=== PATIENT | female | born 1960 | race Caucasian/White ===

== ENCOUNTER 2016-08-31 12:28 | Emergency (ER) | payer BC ==
--- NOTE | 2016-08-31 12:37 | EDM.PDOC ---
ED HPI GENERAL MEDICAL PROBLEM - General Chief Complaint: ENT Problem Stated Complaint: SORE THROAT Time Seen by Provider: 08/31/16 12:30 Source of Information: Reports: Patient History Limitations: Reports: No Limitations - History of Present Illness INITIAL COMMENTS - FREE TEXT/NARRATIVE: 56 yo WF presents to ER complaining of sore throat x 2 days. Pt reports she was having difficulty sleeping due to pain last night prompting her to come to ER. Pt denies any fever/chills, denies any difficulty in breathing or swallowing. Duration: Day(s): (2) Quality: Reports: Ache Severity: Mild Improves with: Reports: None Worsens with: Reports: None Associated Symptoms: Reports: No Other Symptoms - Related Data Allergies Allergy/AdvReac Type Severity Reaction Status Date / Time doxycycline Allergy Rash Verified 09/17/15 10:22 Home Meds: Home Meds Cranberry 1,000 mg PO DAILY 02/02/15 [History] Desoximetasone [Topicort 0.25% Crm] 1 applic TOP BID PRN 02/02/15 [History] Insulin Glarg,Human.Rec.Analog [LantUS Solostar] 35 units SUBCUT DAILY 02/02/15 [History] Lactulose [Chronulac] 120 ml PO BEDTIME PRN 02/02/15 [History] Linaclotide [Linzess] 290 mcg PO ACBREAKFAST 02/02/15 [History] Lisinopril [Prinivil] 10 mg PO DAILY 02/02/15 [History] Metoclopramide [Reglan] 10 mg PO BID PRN 02/02/15 [History] Multivitamin with Minerals [Multivitamins with Minerals] 1 tab PO DAILY@1200 [History] Pregabalin [Lyrica] 200 mg PO BEDTIME 02/02/15 [History] Pregabalin [Lyrica] 400 mg PO ACBREAKFAST 02/02/15 [History] Solifenacin [Vesicare] 5 mg PO DAILY 02/02/15 [History] Terbinafine [LamISIL] 250 mg PO DAILY 02/02/15 [History] Vilazodone [Viibryd] 40 mg PO DAILY 02/02/15 [History] atorvaSTATin [Lipitor] 40 mg PO BEDTIME 02/02/15 [History] buPROPion [buPROPion XL] 450 mg PO DAILY 02/02/15 [History] metFORMIN [Glucophage] 1,000 mg PO BIDMEALS 02/02/15 [History] Acetaminophen/oxyCODONE [Percocet 325-5 MG] 1 - 2 tab PO Q4H PRN 09/04/15 [ History] Diclofenac Sodium [Voltaren] 75 mg PO BIDMEALS 09/04/15 [History] Docusate Sodium 100 mg PO BID 09/04/15 [History] Liraglutide [Victoza] 1.8 mg SUBCUT DAILY@1200 09/04/15 [History] Misoprostol 400 mcg PO BIDMEALS 09/04/15 [History] Polyethylene Glycol 3350 34 gm PO BEDTIME 09/04/15 [History] tiZANidine HCl [Tizanidine HCl] 2 mg PO TID 09/17/15 [History] Amoxicillin 500 mg PO TID #30 tab 08/31/16 [Rx] Cetirizine [ZyrTEC] 10 mg PO DAILY #30 tablet 08/31/16 [Rx] Past Medical History HEENT History: Reports: Impaired Vision Cardiovascular History: Reports: High Cholesterol, Hypertension Gastrointestinal History: Reports: Chronic Constipation, GERD, Irritable Bowel Syndrome Genitourinary History: Reports: UTI, Recurrent, Other (See Below) Other Genitourinary History: overactive bladder 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: Musculoskeletal History: Reports: Neck Pain, Chronic Neurological History: Reports: CVA Other Neuro History: mild stroke Psychiatric History: Reports: Depression Endocrine/Metabolic History: Reports: Diabetes, Type I, Obesity/BMI 30+ Dermatologic History: Reports: Other (See Below) Other Dermatologic History: open sore - Infectious Disease History Infectious Disease History: Reports: Chicken Pox - Past Surgical History Musculoskeletal Surgical History: Reports: Carpal Tunnel, Nerve Relocation Social & Family History - Family History HEENT: Reports: Glaucoma Cardiac: Reports: Bypass, Heart Failure Respiratory: Reports: Other (See Below) Other Respiratory Family Hisory: emphysema - Tobacco Use Smoking Status *Q: Never Smoker Second Hand Smoke Exposure: No - Recreational Drug Use Recreational Drug Use: No ED ROS ENT - Review of Systems Review Of Systems: See Below Constitutional: Reports: No Symptoms HEENT: Reports: Rhinitis, Throat Pain Respiratory: Reports: No Symptoms Cardiovascular: Reports: No Symptoms Endocrine: Reports: No Symptoms GI/Abdominal: Reports: No Symptoms : Reports: No Symptoms Musculoskeletal: Reports: No Symptoms Skin: Reports: No Symptoms Neurological: Reports: No Symptoms Psychiatric: Reports: No Symptoms Hematologic/Lymphatic: Reports: No Symptoms Immunologic: Reports: No Symptoms ED EXAM, ENT - Physical Exam Exam: See Below Exam Limited By: No Limitations General Appearance: Alert, WD/WN, No Apparent Distress Ears: Normal External Exam, Normal Canal, Hearing Grossly Normal, Normal TMs Nose: Normal Inspection, Normal Mucousa, No Blood Mouth/Throat: Pharyngeal Erythema, Throat Pain Head: Atraumatic, Normocephalic Neck: Supple, Non-Tender, Full Range of Motion, Lymphadenopathy (L), Lymphadenopathy (R) Respiratory/Chest: No Respiratory Distress, Lungs Clear, Normal Breath Sounds, No Accessory Muscle Use, Chest Non-Tender Cardiovascular: Normal Peripheral Pulses, Regular Rate, Rhythm, No Edema, No Gallop, No JVD, No Murmur, No Rub GI/Abdominal: Normal Bowel Sounds, Soft, Non-Tender, No Organomegaly, No Distention, No Abnormal Bruit, No Mass Back: Normal Inspection, Full Range of Motion Extremities: Normal Inspection, Normal Range of Motion, Non-Tender, No Pedal Edema, Normal Capillary Refill Neurological: Alert, Oriented, CN II-XII Intact, Normal Cognition, Normal Gait, Normal Reflexes, No Motor/Sensory Deficits Psychiatric: Normal Affect, Normal Mood Skin: Warm, Dry, Intact, Normal Color, No Rash Departure - Departure Time of Disposition: 12:39 Disposition: Home, Self-Care 01 Condition: good Clinical Impression: Sore throat - Discharge Information Prescriptions: Amoxicillin 500 mg PO TID #30 tab Cetirizine [ZyrTEC] 10 mg PO DAILY #30 tablet Instructions: Pharyngitis Referrals: Augusto Acharya MD [Primary Care Provider] - - Assessment/Plan Assessment:: 1. pharyngitis Plan: 1. discharge home 2. amoxil 500mg PO TID x 10 days 3. zyrtec 10mg PO QD 4. follow up in clinic in 2 days for recheck and further management
[2016-08-31] MEDS ORDERED: Amoxicillin 500 MG Cap ONE (12:50)
[2016-08-31 15:05] VITALS: BP 159/89
[2016-08-31] MEDS ORDERED: Amoxicillin 500 MG Cap PO SCH (15:15)
== END 2016-08-31 15:01 | disposition home or self-care (01) ==
LOC: KA.ED 12:28
DX: J02.9 Acute pharyngitis, unspecified (principal); E78.00 Pure hypercholesterolemia, unspecified; H54.7 Unspecified visual loss; I10 Essential (primary) hypertension; E10.9 Type 1 diabetes mellitus without complications; Z88.8 Allergy status to other drugs, medicaments and biological substances; Z79.899 Other long term (current) drug therapy; Z79.4 Long term (current) use of insulin
CPT/HCPCS: 99282; A9270

== ENCOUNTER 2017-12-20 10:35 | Emergency (ER) | payer MEDICARE, BC ==
[2017-12-20 11:51] VITALS: BP 132/66
[2017-12-20] MEDS ORDERED: Fluconazole 100 MG Tab PO ONE (12:26)
--- NOTE | 2017-12-20 12:27 | EDM.PDOC ---
ED HPI GENERAL MEDICAL PROBLEM - General Chief Complaint: General Stated Complaint: HIGH BLOOD PRESSURE? Time Seen by Provider: 12/20/17 11:15 Source of Information: Reports: Patient History Limitations: Reports: No Limitations - History of Present Illness INITIAL COMMENTS - FREE TEXT/NARRATIVE: Patient is a 57-year-old female who presents to the emergency department this morning with a complaint of high blood pressure. Patient states that she took the blood pressure this morning and noticed that it was high. Patient states that she just did one reading and decided to present to the emergency room. Patient does have a long history of hypertension and is currently on losartan, and diabetes which she is on insulin and oral medication. There is been no change in medication in last year. Patient is currently being treated for candidiasis with Diflucan weekly. Patient states that she has small amount of vaginal discharge, but denies dysuria, abdominal pain, chest pain, shortness of breath, headache, blurry vision, or dizziness. Onset: Today Duration: Hour(s): Improves with: Reports: None Worsens with: Reports: None Context: Denies: Activity, Exercise, Lifting, Sick Contact, Trauma Associated Symptoms: Reports: No Other Symptoms. Denies: Chest Pain, Cough, Fever/Chills, Nausea/Vomiting, Shortness of Breath, Syncope, Weakness - Related Data Allergies Allergy/AdvReac Type Severity Reaction Status Date / Time doxycycline Allergy Rash Verified 12/20/17 10:39 Home Meds: Home Meds Cranberry 1,000 mg PO DAILY 02/02/15 [History] Desoximetasone [Topicort 0.25% Crm] 1 applic TOP BID PRN 02/02/15 [History] Insulin Glarg,Human.Rec.Analog [LantUS Solostar] 35 units SUBCUT DAILY 02/02/15 [History] Lactulose [Chronulac] 120 ml PO BEDTIME PRN 02/02/15 [History] Linaclotide [Linzess] 290 mcg PO ACBREAKFAST 02/02/15 [History] Lisinopril [Prinivil] 10 mg PO DAILY 02/02/15 [History] Metoclopramide [Reglan] 10 mg PO BID PRN 02/02/15 [History] Multivitamin with Minerals [Multivitamins with Minerals] 1 tab PO DAILY@1200 [History] Pregabalin [Lyrica] 200 mg PO BEDTIME 02/02/15 [History] Pregabalin [Lyrica] 400 mg PO ACBREAKFAST 02/02/15 [History] Solifenacin [Vesicare] 5 mg PO DAILY 02/02/15 [History] Terbinafine [LamISIL] 250 mg PO DAILY 02/02/15 [History] Vilazodone [Viibryd] 40 mg PO DAILY 02/02/15 [History] atorvaSTATin [Lipitor] 40 mg PO BEDTIME 02/02/15 [History] buPROPion [buPROPion XL] 450 mg PO DAILY 02/02/15 [History] metFORMIN [Glucophage] 1,000 mg PO BIDMEALS 02/02/15 [History] Acetaminophen/oxyCODONE [Percocet 325-5 MG] 1 - 2 tab PO Q4H PRN 09/04/15 [ History] Diclofenac Sodium [Voltaren] 75 mg PO BIDMEALS 09/04/15 [History] Docusate Sodium 100 mg PO BID 09/04/15 [History] Liraglutide [Victoza] 1.8 mg SUBCUT DAILY@1200 09/04/15 [History] Polyethylene Glycol 3350 34 gm PO BEDTIME 09/04/15 [History] miSOPROStol [Misoprostol] 400 mcg PO BIDMEALS 09/04/15 [History] tiZANidine HCl [Tizanidine HCl] 2 mg PO TID 09/17/15 [History] Amoxicillin 500 mg PO TID #30 tab 08/31/16 [Rx] Cetirizine [ZyrTEC] 10 mg PO DAILY #30 tablet 08/31/16 [Rx] Past Medical History HEENT History: Reports: Impaired Vision Cardiovascular History: Reports: High Cholesterol, Hypertension Gastrointestinal History: Reports: Chronic Constipation, GERD, Irritable Bowel Syndrome Genitourinary History: Reports: UTI, Recurrent, Other (See Below) Other Genitourinary History: overactive bladder 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: Musculoskeletal History: Reports: Neck Pain, Chronic Neurological History: Reports: CVA Other Neuro History: mild stroke Psychiatric History: Reports: Depression Endocrine/Metabolic History: Reports: Diabetes, Type I, Obesity/BMI 30+ Dermatologic History: Reports: Other (See Below) Other Dermatologic History: open sore - Infectious Disease History Infectious Disease History: Reports: Chicken Pox - Past Surgical History Respiratory Surgical History: Reports: None Musculoskeletal Surgical History: Reports: Carpal Tunnel, Nerve Relocation Social & Family History - Family History HEENT: Reports: Glaucoma Cardiac: Reports: Bypass, Heart Failure Respiratory: Reports: Other (See Below) Other Respiratory Family Hisory: emphysema - Tobacco Use Smoking Status *Q: Never Smoker - Caffeine Use Caffeine Use: Reports: Coffee - Recreational Drug Use Recreational Drug Use: No ED ROS GENERAL - Review of Systems Review Of Systems: ROS reveals no pertinent complaints other than HPI. Constitutional: Reports: No Symptoms HEENT: Reports: No Symptoms Respiratory: Reports: No Symptoms Cardiovascular: Reports: No Symptoms Endocrine: Reports: No Symptoms GI/Abdominal: Reports: No Symptoms : Reports: No Symptoms Musculoskeletal: Reports: No Symptoms Skin: Reports: No Symptoms Neurological: Reports: No Symptoms Psychiatric: Reports: No Symptoms Hematologic/Lymphatic: Reports: No Symptoms Immunologic: Reports: No Symptoms ED EXAM, GENERAL - Physical Exam Exam: See Below Exam Limited By: No Limitations General Appearance: Alert, WD/WN, No Apparent Distress Eye Exam: Bilateral Eye: Normal Inspection Throat/Mouth: Normal Inspection, Normal Oropharynx, No Airway Compromise Head: Atraumatic, Normocephalic Neck: Normal Inspection, Supple Respiratory/Chest: No Respiratory Distress, Lungs Clear, Normal Breath Sounds, No Accessory Muscle Use, Chest Non-Tender Cardiovascular: Normal Peripheral Pulses, Regular Rate, Rhythm, No Murmur GI/Abdominal: Normal Bowel Sounds, Soft, Non-Tender Back Exam: Normal Inspection. No: CVA Tenderness (L), CVA Tenderness (R) Extremities: Normal Inspection, No Pedal Edema Neurological: Alert, Oriented, CN II-XII Intact, Normal Cognition, No Motor/ Sensory Deficits Psychiatric: Normal Affect, Normal Mood Skin Exam: Warm, Dry, Intact, Normal Color, No Rash EKG INTERPRETATION EKG Date: 12/20/17 Time: 11:30 Rhythm: NSR Rate (Beats/Min): 88 [place]: Normal P-Wave: Present QRS: Normal ST-T: Normal QT: Prolonged Comparison: No Change Course - Vital Signs Last Recorded V/S: Last Vital Signs Temp 97.5 F 12/20/17 10:40 Pulse 83 12/20/17 11:50 Resp 14 12/20/17 11:50 BP 132/66 12/20/17 11:50 Pulse Ox 99 09/01/18 11:50 - Re-Assessments/Exams Free Text/Narrative Re-Assessment/Exam: 12/20/17 12:31 Patient afebrile, nontoxic appearing, vital signs stable, denies chest pain or shortness of breath. EKG was performed and compared to EKG on 07/19/2015 with no noticeable changes. While in emergency department blood pressure decreased to 130s over 80s without intervention. [facility] notes received and reviewed, which showed positive for candidiasis, but negative for UTI. Patient was on Diflucan weekly, but will add three-day dose for coverage. Discussed with patient how to appropriately check blood pressure. Patient will follow-up at clinic next week. Departure - Departure Time of Disposition: 12:34 Disposition: Home, Self-Care 01 Condition: Good Clinical Impression: Hypertension screening, Vaginal candidiasis Hypertension Qualifiers: Hypertension type: unspecified Qualified Code(s): I10 - Essential (primary) hypertension - Discharge Information Instructions: How to Take Your Blood Pressure, Vaginal Yeast Infection, Adult, Hypertension, [id number] Referrals: Augusto Acharya MD [Primary Care Provider] - Additional Instructions: Follow-up at [facility] in 2-3 days. Return to the emergency room sooner if symptoms continue or worsen. Take medication as directed - Assessment/Plan Assessment:: Hypertension, vaginal candidiasis Plan: Follow-up at [facility] next week
== END 2017-12-20 12:46 | disposition home or self-care (01) ==
LOC: KA.ED 10:35
DX: I10 Essential (primary) hypertension (principal); B37.3 Candidiasis of vulva and vagina; E78.00 Pure hypercholesterolemia, unspecified; E10.9 Type 1 diabetes mellitus without complications; F32.9 Major depressive disorder, single episode, unspecified; Z88.8 Allergy status to other drugs, medicaments and biological substances; Z79.899 Other long term (current) drug therapy
CPT/HCPCS: 99283; A9270-GY

== ENCOUNTER 2018-07-18 06:36 | Emergency (ER) | payer MEDICARE, BC ==
[2018-07-18] MEDS: diphenhydrAMINE 50 MG/ML SDV IVPUSH ONE (07:08)
[2018-07-18 07:32] VITALS: BP 141/89
[2018-07-18] MEDS ORDERED: Sodium Chloride 0.9% 1,000 ML IV SCH (07:45)
--- NOTE | 2018-07-18 07:46 | EDM.PDOC ---
ED HPI GENERAL MEDICAL PROBLEM - General Chief Complaint: General Stated Complaint: anxiety,itching Time Seen by Provider: 07/18/18 07:15 Source of Information: Reports: Patient History Limitations: Reports: No Limitations - History of Present Illness INITIAL COMMENTS - FREE TEXT/NARRATIVE: 58-year-old female presents to the emergency room worse complaints of severe pruritus of both hands. 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 She is not taking any antihistamine in order to try to resolve this. She denies any rash or redness to the hands. She denies any swelling of the hands. She denies any rash anywhere else on her body or itching anywhere else. She has not had any change in her medications other than that she is been on diclofenac for a yeast infection. She reports that this is improved. She is otherwise in her normal state of health. She does have a history of anxiety and took some Xanax which has not helped her itching. She is diabetic. She does take Lyrica for neuropathy. She denies any fever or chills or recent illnesses. She is not having any breathing problems or shortness of breath. She has no chest pain. Her has recently had surgery on his back and therefore was unable to drive her in. She came through EMS and an IV was placed in her left arm. Her vital signs and blood pressure have been stable. I instructed the nurse to give her 50 of Benadryl IV upon her arrival. She states that her symptoms have improved 100%. Onset Date: 07/17/18 Duration: Getting Worse Location: Reports: Other (hands bilateral) Quality: Reports: Burning Severity: Moderate Improves with: Reports: None Worsens with: Reports: None Context: Reports: Activity Associated Symptoms: Reports: No Other Symptoms - Related Data Allergies Allergy/AdvReac Type Severity Reaction Status Date / Time doxycycline Allergy Rash Verified 07/18/18 06:56 Home Meds: Home Meds Cranberry 500 mg PO DAILY@1200 02/02/15 [History] Desoximetasone [Topicort 0.25% Crm] 1 applic TOP BID PRN 02/02/15 [History] Metoclopramide [Reglan] 10 mg PO BID PRN 02/02/15 [History] Multivitamin with Minerals [Multivitamins with Minerals] 1 tab PO DAILY@1200 [History] Pregabalin [Lyrica] 200 mg PO BEDTIME 02/02/15 [History] Pregabalin [Lyrica] 400 mg PO ACBREAKFAST 02/02/15 [History] Vilazodone [Viibryd] 40 mg PO DAILY 02/02/15 [History] atorvaSTATin [Lipitor] 40 mg PO BEDTIME 02/02/15 [History] buPROPion [buPROPion XL] 450 mg PO DAILY 02/02/15 [History] metFORMIN [Glucophage] 1,000 mg PO BIDMEALS 02/02/15 [History] Diclofenac Sodium [Voltaren] 75 mg PO BIDMEALS 09/04/15 [History] Liraglutide [Victoza] 0.6 mg SUBCUT DAILY@1200 09/04/15 [History] Polyethylene Glycol 3350 34 gm PO BEDTIME 09/04/15 [History] miSOPROStol [Misoprostol] 400 mcg PO BIDMEALS 09/04/15 [History] Ascorbic Acid [Vitamin C] 1,000 mg PO DAILY@1200 12/20/17 [History] Aspirin [Ecotrin] 81 mg PO BEDTIME 12/20/17 [History] Calcium Carbonate/Vitamin D3 [Calcium 1,000 + D3 [place]] 1 tab PO DAILY@1200 05/08 [History] Cinnamon Bark [Cinnamon] 1,000 mg PO DAILY@1200 12/20/17 [History] Cyanocobalamin/FA/Pyridoxine [B Complex-Folic Acid] 1 tab PO DAILY@1200 [History] Dextrose [Glucose] 1 bottle PO ASDIRECTED PRN 12/20/17 [History] Estrogens, Conjugated [Premarin] 0.625 mg PO DAILY 12/20/17 [History] Fluconazole [Diflucan] 150 mg PO WEEKLY 12/20/17 [History] Insulin Glarg,Human.Rec.Analog [Lantus] 30 unit SQ BEDTIME 12/20/17 [History] Lactobacillus Acidophilus [Acidophilus Lactobacilli] 2 cap PO DAILY@1200 [History] Lactulose [Generlac] 2 tbsp PO BEDTIME 12/20/17 [History] Losartan [Cozaar] 50 mg PO DAILY 12/20/17 [History] Magnesium Oxide 400 mg PO BEDTIME 12/20/17 [History] Magnesium Oxide 800 mg PO DAILY 12/20/17 [History] Meclizine [Antivert] 25 mg PO BID PRN 12/20/17 [History] Mirabegron [Myrbetriq] 50 mg PO DAILY 12/20/17 [History] Ranitidine [Zantac] 150 mg PO DAILY 12/20/17 [History] Cetirizine [ZyrTEC] 10 mg PO DAILY PRN 01/30/18 [History] Past Medical History HEENT History: Reports: Impaired Vision Cardiovascular History: Reports: High Cholesterol, Hypertension Gastrointestinal History: Reports: Chronic Constipation, GERD, Irritable Bowel Syndrome Genitourinary History: Reports: UTI, Recurrent, Other (See Below) Other Genitourinary History: overactive bladder 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: Musculoskeletal History: Reports: Neck Pain, Chronic Neurological History: Reports: CVA Other Neuro History: mild stroke Psychiatric History: Reports: Depression Endocrine/Metabolic History: Reports: Diabetes, Type I, Obesity/BMI 30+ Dermatologic History: Reports: Other (See Below) Other Dermatologic History: open sore - Infectious Disease History Infectious Disease History: Reports: Chicken Pox - Past Surgical History Respiratory Surgical History: Reports: None Musculoskeletal Surgical History: Reports: Carpal Tunnel, Nerve Relocation Social & Family History - Family History Family Medical History: Noncontributory HEENT: Reports: Glaucoma Cardiac: Reports: Bypass, Heart Failure Respiratory: Reports: Other (See Below) Other Respiratory Family Hisory: emphysema - Caffeine Use Caffeine Use: Reports: Coffee ED ROS GENERAL - Review of Systems Review Of Systems: ROS reveals no pertinent complaints other than HPI. ED EXAM, GENERAL - Physical Exam Exam: See Below Exam Limited By: No Limitations General Appearance: Alert, WD/WN, No Apparent Distress, Anxious Eye Exam: Bilateral Eye: EOMI Ears: Hearing Grossly Normal Nose: Normal Inspection, Normal Mucosa, No Blood Throat/Mouth: Normal Inspection, Normal Lips, Normal Oropharynx, Normal Voice, No Airway Compromise Head: Atraumatic, Normocephalic Neck: Normal Inspection, Supple. No: Lymphadenopathy (L), Lymphadenopathy (R) Respiratory/Chest: No Respiratory Distress, Lungs Clear Cardiovascular: Normal Peripheral Pulses, Regular Rate, Rhythm GI/Abdominal: Normal Bowel Sounds, Soft Back Exam: Normal Inspection, Full Range of Motion Extremities: Normal Inspection, Normal Range of Motion, Non-Tender, No Pedal Edema, Normal Capillary Refill, Other (Partial amputations of the great, second and third toe left foot) Neurological: Alert, Oriented, Normal Cognition, No Motor/Sensory Deficits Psychiatric: Anxious Skin Exam: Warm, Dry, Intact, Normal Color, No Rash Lymphatic: No Adenopathy Course - Vital Signs Last Recorded V/S: Last Vital Signs Temp 97.6 F 07/18/18 06:40 Pulse 90 07/18/18 06:40 Resp 18 07/18/18 06:40 BP 141/89 H 07/18/18 06:40 Pulse Ox 100 07/18/18 06:40 - Orders/Labs/Meds Orders: Active Orders 24 hr Category Date Time Status Sodium Chloride 0.9% [Normal Saline] 1,000 ml Med 07/18/18 07:45 Active IV ASDIRECTED Medication Orders Sodium Chloride (Normal Saline) 1,000 mls @ 100 mls/hr IV ASDIRECTED KIMMIE Labs: Laboratory Tests 07/18/18 Range/Units 06:43 POC Glucose 239 H (74-106) mg/dl Meds: Medications Generic Name Dose Route Start Last Admin Trade Name Freq PRN Reason Stop Dose Admin Sodium Chloride 1,000 mls @ 100 mls/hr 07/18/18 07:45 Normal Saline IV ASDIRECTED KIMMIE Discontinued Medications Generic Name Dose Route Start Last Admin Trade Name Freq PRN Reason Stop Dose Admin Diphenhydramine HCl 50 mg 07/18/18 06:59 07/18/18 07:08 Benadryl IVPUSH 07/18/18 07:00 50 mg ONETIME ONE Administration - Re-Assessments/Exams Free Text/Narrative Re-Assessment/Exam: 07/18/18 07:46 Patient was given 50 of Benadryl IV, she feels 100% relieved of her symptoms Departure - Departure Time of Disposition: 07:47 Disposition: Home, Self-Care 01 Condition: Good Clinical Impression: Pruritus - Discharge Information Instructions: Pruritus Forms: ED Department Discharge Additional Instructions: 1. Benadryl 50 mg every 8 hours when necessary for itching. 2. Follow-up with your primary care next week if symptoms persist. - My Orders Last 24 Hours: My Active Orders 07/18/18 07:45 Sodium Chloride 0.9% [Normal Saline] 1,000 ml IV ASDIRECTED - Assessment/Plan Last 24 Hours: My Active Orders 07/18/18 07:45 Sodium Chloride 0.9% [Normal Saline] 1,000 ml IV ASDIRECTED Assessment:: Pruritus of the hands Plan: 1. Benadryl 50 mg every 8 hours when necessary as needed for itching. 2. Follow-up with your primary care next week if symptoms persist 3. Continue with her home medications as prescribed
== END 2018-07-18 08:10 | disposition home or self-care (01) ==
LOC: KA.ED 06:36
DX: L50.9 Urticaria, unspecified (principal); E78.00 Pure hypercholesterolemia, unspecified; I10 Essential (primary) hypertension; E10.9 Type 1 diabetes mellitus without complications; Z88.8 Allergy status to other drugs, medicaments and biological substances; Z79.899 Other long term (current) drug therapy
CPT/HCPCS: 82962; 96374; 99284; 99284-25; J1200

== ENCOUNTER 2018-08-10 22:40 | Emergency (ER) | payer MEDICARE, BC ==
[2018-08-10] MEDS ORDERED: Diazepam 5 MG Tab PO ONE (23:24)
[2018-08-10] MEDS ORDERED: Ketorolac 60 MG/2 ML SDV IM ONE (23:24)
--- NOTE | 2018-08-10 23:24 | EDM.PDOC ---
ED HPI GENERAL MEDICAL PROBLEM - General Chief Complaint: Lower Extremity Injury/Pain Stated Complaint: post op foot pain Time Seen by Provider: 08/10/18 23:10 Source of Information: Reports: Patient History Limitations: Reports: No Limitations - History of Present Illness INITIAL COMMENTS - FREE TEXT/NARRATIVE: 58 YO WF presents to ER with bilateral foot neuropathic pain. Pt reports she had foot surgery for bunion removal 5 days ago and was doing fine until tonight. Pt reports she is having trouble sleeping due to the discomfort. Pt denies any swelling, redness or discharge from her post surgical site. Pt denies any fever/chills, no nausea/vomiting, no lower extremity swelling. Pt requesting something to help her sleep due to discomfort. Duration: Chronic Location: Reports: Lower Extremity, Left, Lower Extremity, Right Quality: Reports: Dull, Throbbing Severity: Moderate Improves with: Reports: None Worsens with: Reports: None Associated Symptoms: Reports: No Other Symptoms - Related Data Allergies Allergy/AdvReac Type Severity Reaction Status Date / Time doxycycline Allergy Rash Verified 08/10/18 23:06 Home Meds: Home Meds Desoximetasone [Topicort 0.25% Crm] 1 applic TOP BID PRN 02/02/15 [History] Metoclopramide [Reglan] 10 mg PO BID PRN 02/02/15 [History] Multivitamin with Minerals [Multivitamins with Minerals] 1 tab PO DAILY@1200 [History] Pregabalin [Lyrica] 200 mg PO BEDTIME 02/02/15 [History] Pregabalin [Lyrica] 400 mg PO ACBREAKFAST 02/02/15 [History] Vilazodone [Viibryd] 40 mg PO DAILY 02/02/15 [History] atorvaSTATin [Lipitor] 40 mg PO BEDTIME 02/02/15 [History] buPROPion [buPROPion XL] 450 mg PO DAILY 02/02/15 [History] metFORMIN [Glucophage] 1,000 mg PO BIDMEALS 02/02/15 [History] Diclofenac Sodium [Voltaren] 75 mg PO BIDMEALS 09/04/15 [History] Liraglutide [Victoza] 0.6 mg SUBCUT DAILY@1200 09/04/15 [History] Polyethylene Glycol 3350 34 gm PO BID 09/04/15 [History] miSOPROStol [Misoprostol] 400 mcg PO BIDMEALS 09/04/15 [History] Aspirin [Ecotrin] 81 mg PO BEDTIME 12/20/17 [History] Calcium Carbonate/Vitamin D3 [Calcium 1,000 + D3 Caplet] 1 tab PO DAILY@1200 05/08 [History] Cyanocobalamin/FA/Pyridoxine [B Complex-Folic Acid] 1 tab PO DAILY@1200 [History] Dextrose [Glucose] 1 bottle PO ASDIRECTED PRN 12/20/17 [History] Estrogens, Conjugated [Premarin] 0.625 mg PO DAILY 12/20/17 [History] Fluconazole [Diflucan] 150 mg PO DAILY 12/20/17 [History] Insulin Glarg,Human.Rec.Analog [Lantus] 30 unit SQ BEDTIME 12/20/17 [History] Lactobacillus Acidophilus [Acidophilus Lactobacilli] 2 cap PO BID 12/20/17 [ History] Lactulose [Generlac] 120 ml PO BEDTIME 12/20/17 [History] Magnesium Oxide 400 mg PO BEDTIME 12/20/17 [History] Magnesium Oxide 800 mg PO DAILY 12/20/17 [History] Meclizine [Antivert] 25 mg PO BID PRN 12/20/17 [History] Mirabegron [Myrbetriq] 50 mg PO DAILY 12/20/17 [History] ALPRAZolam [Alprazolam] 0.5 mg PO BID PRN 07/18/18 [History] Baclofen 10 mg PO TID PRN 07/18/18 [History] Cetirizine HCl/Pseudoephedrine [ZyrTEC-D] 1 tab PO BID 07/18/18 [History] Insulin Glarg,Human.Rec.Analog [Lantus] 50 units SQ DAILY 07/18/18 [History] Losartan/Hydrochlorothiazide [Hyzaar 100-12.5 Tablet] 1 tab PO DAILY 07/18/18 [ History] Metoclopramide HCl [Reglan] 10 mg PO BID PRN 07/18/18 [History] Non-Formulary Medication [NF Drug] 1 applic TOP BID 07/18/18 [History] hydroCHLOROthiazide [Hydrochlorothiazide] 12.5 mg PO DAILY 07/18/18 [History] Hydrocodone/Acetaminophen [Hydrocodon-Acetaminophen 5-325] 1 each PO Q6H PRN [History] hydrOXYzine pamoate [Hydroxyzine Pamoate] 25 mg PO Q6H PRN 08/10/18 [History] Past Medical History HEENT History: Reports: Impaired Vision Cardiovascular History: Reports: High Cholesterol, Hypertension Gastrointestinal History: Reports: Chronic Constipation, GERD, Irritable Bowel Syndrome Genitourinary History: Reports: UTI, Recurrent, Other (See Below) Other Genitourinary History: overactive bladder 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: Musculoskeletal History: Reports: Neck Pain, Chronic Neurological History: Reports: CVA Other Neuro History: mild stroke Psychiatric History: Reports: Depression Endocrine/Metabolic History: Reports: Diabetes, Type I, Obesity/BMI 30+ Dermatologic History: Reports: Other (See Below) Other Dermatologic History: open sore - Infectious Disease History Infectious Disease History: Reports: Chicken Pox - Past Surgical History Respiratory Surgical History: Reports: None Musculoskeletal Surgical History: Reports: Carpal Tunnel, Nerve Relocation Social & Family History - Family History Family Medical History: Noncontributory HEENT: Reports: Glaucoma Cardiac: Reports: Bypass, Heart Failure Respiratory: Reports: Other (See Below) Other Respiratory Family Hisory: emphysema - Caffeine Use Caffeine Use: Reports: Coffee Review of Systems - Review of Systems Review Of Systems: See Below Constitutional: Reports: No Symptoms Eyes: Reports: No Symptoms Ears: Reports: No Symptoms Nose: Reports: No Symptoms Mouth/Throat: Reports: No Symptoms Respiratory: Reports: No Symptoms Cardiovascular: Reports: No Symptoms GI/Abdominal: Reports: No Symptoms Genitourinary: Reports: No Symptoms Musculoskeletal: Reports: No Symptoms Skin: Reports: No Symptoms Neurological: Reports: No Symptoms Psychiatric: Reports: No Symptoms ED EXAM, GENERAL - Physical Exam Exam: See Below Exam Limited By: No Limitations General Appearance: Alert, WD/WN, No Apparent Distress Head: Atraumatic, Normocephalic Neck: Normal Inspection, Supple, Non-Tender, Full Range of Motion Respiratory/Chest: No Respiratory Distress, Lungs Clear, Normal Breath Sounds, No Accessory Muscle Use, Chest Non-Tender Cardiovascular: Normal Peripheral Pulses, Regular Rate, Rhythm, No Edema, No Gallop, No JVD, No Murmur, No Rub GI/Abdominal: Normal Bowel Sounds, Soft, Non-Tender, No Organomegaly, No Distention, No Abnormal Bruit, No Mass Back Exam: Normal Inspection, Full Range of Motion, NT Extremities: Normal Inspection, Normal Range of Motion, No Pedal Edema, Normal Capillary Refill. No: Increased Warmth, Redness Neurological: Alert, Oriented, CN II-XII Intact, Normal Cognition, Normal Gait, Normal Reflexes, No Motor/Sensory Deficits Psychiatric: Normal Affect, Normal Mood Skin Exam: Warm, Dry, Intact, Normal Color, No Rash Lymphatic: No Adenopathy Departure - Departure Time of Disposition: 23:36 Disposition: Home, Self-Care 01 Condition: Good Clinical Impression: Neuropathy - Discharge Information Instructions: Peripheral Neuropathy, Neuropathic Pain Additional Instructions: 1. discharge home 2. follow up with Dr Coley as scheduled this week 3. return to ER for worsening symptoms 4. continue home medications as directed by PCP - Assessment/Plan Assessment:: 1. bilateral foot neuropathy Plan: 1. discharge home 2. follow up with Dr Coley as scheduled this week 3. return to ER for worsening symptoms 4. continue home medications as directed by PCP
[2018-08-11 03:44] VITALS: BP 119/71
== END 2018-08-11 00:05 | disposition home or self-care (01) ==
LOC: KA.ED 22:40
DX: G62.9 Polyneuropathy, unspecified (principal); I10 Essential (primary) hypertension; E78.00 Pure hypercholesterolemia, unspecified; K21.9 Gastro-esophageal reflux disease without esophagitis; E10.9 Type 1 diabetes mellitus without complications; Z88.1 Allergy status to other antibiotic agents; Z79.82 Long term (current) use of aspirin; Z86.73 Personal history of transient ischemic attack (TIA), and cerebral infarction without residual deficits; Z79.899 Other long term (current) drug therapy
CPT/HCPCS: 96372; 99282; A9270-GY; J1885

== ENCOUNTER 2019-03-03 08:29 | Emergency (ER) | payer MEDICARE, BC ==
[2019-03-03 08:39] VITALS: BP 166/87; PULSE 98
[2019-03-03] MEDS ORDERED: Sodium Chloride 0.9% 10 ML Syringe FLUSH PRN (08:46)
[2019-03-03] MEDS ORDERED: Sodium Chloride 0.9% 1,000 ML IV ONE (08:46)
[2019-03-03 09:28] LABS: ANION GAP 14.9 mmol/L (5-15); CHLORIDE,CL 106 mmol/L (98-115); SODIUM,NA 144 mmol/L (136-145)
--- NOTE | 2019-03-03 09:28 | EDM.PDOC ---
ED HPI GENERAL MEDICAL PROBLEM - General Chief Complaint: General Stated Complaint: FOOT TINGLING Time Seen by Provider: 03/03/19 09:00 Source of Information: Reports: Patient History Limitations: Reports: No Limitations - History of Present Illness INITIAL COMMENTS - FREE TEXT/NARRATIVE: 59 YO WF presents to ER with complaints of chronic but worsening lower extremity neuropathy. 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 Since that time pt reports increased neuropathic pain to her left foot. Pt denies any fever/chills, no redness, drainage or warmth to her left foot. Pt reports she was seen here 2018 for similar pain and was given Toradol/Valium which improved her symptoms significantly. Onset Date: 03/01/19 Duration: Chronic, Getting Worse Location: Reports: Lower Extremity, Left, Lower Extremity, Right Quality: Reports: Same as Previous Episode Severity: Moderate Improves with: Reports: None Worsens with: Reports: None Associated Symptoms: Reports: No Other Symptoms. Denies: Confusion, Headaches, Seizure, Weakness Bilateral Feet Pain Score (Numeric/FACES): 10 Bilateral Hand Pain Score (Numeric/FACES): 10 - Related Data Allergies Allergy/AdvReac Type Severity Reaction Status Date / Time doxycycline Allergy Rash Verified 03/03/19 08:34 Home Meds: Home Meds Desoximetasone [Topicort 0.25% Crm] 1 applic TOP BID PRN 02/02/15 [History] Metoclopramide [Reglan] 10 mg PO BID PRN 02/02/15 [History] Multivitamin with Minerals [Multivitamins with Minerals] 1 tab PO DAILY@1200 [History] Pregabalin [Lyrica] 200 mg PO BEDTIME 02/02/15 [History] Pregabalin [Lyrica] 400 mg PO ACBREAKFAST 02/02/15 [History] Vilazodone [Viibryd] 40 mg PO DAILY@1200 02/02/15 [History] atorvaSTATin [Lipitor] 40 mg PO BEDTIME 02/02/15 [History] buPROPion [buPROPion XL] 450 mg PO DAILY 02/02/15 [History] metFORMIN [Glucophage] 1,000 mg PO BIDMEALS@12,18 02/02/15 [History] Diclofenac Sodium [Voltaren] 75 mg PO BIDMEALS 09/04/15 [History] Liraglutide [Victoza] 0.6 mg SUBCUT DAILY@1200 09/04/15 [History] Polyethylene Glycol 3350 34 gm PO BID 09/04/15 [History] miSOPROStol [Misoprostol] 400 mcg PO BIDMEALS 09/04/15 [History] Aspirin [Ecotrin EC] 81 mg PO BEDTIME 12/20/17 [History] Calcium Carbonate/Vitamin D3 [Calcium 1,000 + D3 Caplet] 1 tab PO DAILY@1200 05/08 [History] Cyanocobalamin/FA/Pyridoxine [B Complex-Folic Acid] 1 tab PO DAILY@1200 [History] Dextrose [Glucose] 1 bottle PO ASDIRECTED PRN 12/20/17 [History] Insulin Glarg,Human.Rec.Analog [Lantus] 20 unit SQ BEDTIME 12/20/17 [History] Lactobacillus Acidophilus [Acidophilus Lactobacilli] 2 cap PO BID 12/20/17 [ History] Lactulose [Generlac] 120 ml PO BEDTIME 12/20/17 [History] Magnesium Oxide 400 mg PO BEDTIME 12/20/17 [History] Magnesium Oxide 800 mg PO DAILY 12/20/17 [History] Mirabegron [Myrbetriq] 50 mg PO DAILY 12/20/17 [History] Baclofen 10 mg PO TID PRN 07/18/18 [History] Cetirizine HCl/Pseudoephedrine [ZyrTEC-D] 1 tab PO BID PRN 07/18/18 [History] Losartan/Hydrochlorothiazide [Hyzaar 100-12.5 Tablet] 1 tab PO DAILY 07/18/18 [ History] Non-Formulary Medication [NF Drug] 1 applic TOP BID PRN 07/18/18 [History] hydrOXYzine pamoate [Hydroxyzine Pamoate] 25 mg PO Q6H PRN 08/10/18 [History] Capsaicin [Zostrix] 1 applic TOP QID PRN 03/03/19 [History] Insulin Aspart [NovoLOG] 5 units SQ TIDMEALS PRN 03/03/19 [History] Lactulose [Generlac] 120 ml PO BEDTIME PRN 03/03/19 [History] Raloxifene [Evista] 60 mg PO DAILY 03/03/19 [History] Past Medical History HEENT History: Reports: Impaired Vision Cardiovascular History: Reports: High Cholesterol, Hypertension Gastrointestinal History: Reports: Chronic Constipation, GERD, Irritable Bowel Syndrome Genitourinary History: Reports: UTI, Recurrent, Other (See Below) Other Genitourinary History: overactive bladder 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: Musculoskeletal History: Reports: Neck Pain, Chronic Neurological History: Reports: CVA Other Neuro History: mild stroke Psychiatric History: Reports: Anxiety, Depression Endocrine/Metabolic History: Reports: Diabetes, Type I, Obesity/BMI 30+ Dermatologic History: Reports: Other (See Below) Other Dermatologic History: open sore to left foot - Infectious Disease History Infectious Disease History: Reports: Chicken Pox - Past Surgical History Cardiovascular Surgical History: Reports: None Respiratory Surgical History: Reports: None GI Surgical History: Reports: Cholecystectomy, Colonoscopy, EGD Female Surgical History: Reports: None Neurological Surgical History: Reports: C-Spine Musculoskeletal Surgical History: Reports: Carpal Tunnel, Nerve Relocation, Other (See Below) Other Musculoskeletal Surgeries/Procedures:: OR on 08/06/18 to complete amputation of second toe on left foot. Also had right bunion removed. Social & Family History - Family History Family Medical History: Noncontributory HEENT: Reports: Glaucoma Cardiac: Reports: Bypass, Heart Failure Respiratory: Reports: Other (See Below) Other Respiratory Family Hisory: emphysema - Caffeine Use Caffeine Use: Reports: Coffee ED ROS GENERAL - Review of Systems Review Of Systems: See Below Constitutional: Reports: No Symptoms HEENT: Reports: No Symptoms Respiratory: Reports: No Symptoms Cardiovascular: Reports: No Symptoms Endocrine: Reports: No Symptoms GI/Abdominal: Reports: No Symptoms : Reports: No Symptoms Musculoskeletal: Reports: Foot Pain Skin: Reports: No Symptoms Neurological: Reports: Numbness, Paresthesia, Pre-Existing Deficit, Tingling. Denies: Confusion, Dizziness, Headache, Seizure, Trouble Speaking, Difficulty Walking, Weakness, Change in Speech, Gait Disturbance Psychiatric: Reports: No Symptoms Hematologic/Lymphatic: Reports: No Symptoms Immunologic: Reports: No Symptoms ED EXAM, GENERAL - Physical Exam Exam: See Below Exam Limited By: No Limitations General Appearance: Alert, WD/WN, No Apparent Distress Eye Exam: Bilateral Eye: EOMI, PERRL Throat/Mouth: Normal Inspection, Normal Lips, Normal Teeth, Normal Gums, Normal Oropharynx, Normal Voice, No Airway Compromise Head: Atraumatic, Normocephalic Neck: Normal Inspection, Supple, Non-Tender, Full Range of Motion Respiratory/Chest: No Respiratory Distress, Lungs Clear, Normal Breath Sounds, No Accessory Muscle Use, Chest Non-Tender Cardiovascular: Normal Peripheral Pulses, Regular Rate, Rhythm, No Edema, No Gallop, No JVD, No Murmur, No Rub GI/Abdominal: Normal Bowel Sounds, Soft, Non-Tender, No Organomegaly, No Distention, No Abnormal Bruit, No Mass Back Exam: Normal Inspection, Full Range of Motion, NT Extremities: Normal Inspection, Normal Range of Motion, No Pedal Edema, Normal Capillary Refill, Leg Pain. No: Limited Range of Motion, Increased Warmth, Redness Neurological: Alert, Oriented, CN II-XII Intact, Normal Cognition, Normal Gait, Normal Reflexes, No Motor/Sensory Deficits Psychiatric: Normal Affect, Normal Mood, Anxious Skin Exam: Warm, Dry, Intact, Normal Color, No Rash Lymphatic: No Adenopathy Course - Vital Signs Last Recorded V/S: Last Vital Signs Temp 36.5 C 03/03/19 08:35 Pulse 98 03/03/19 08:35 Resp 16 03/03/19 08:35 BP 166/87 H 03/03/19 08:35 Pulse Ox 92 L 03/03/19 08:35 - Orders/Labs/Meds Orders: Active Orders 24 hr Category Date Time Status Peripheral IV Care [RC] . DIRECTED Care 03/03/19 08:46 Active URINALYSIS W/MICROSCOPIC [UA W/MICROSCOPIC] [URIN] Stat Lab 03/03/19 08:49 Ordered Sodium Chloride 0.9% [Normal Saline] 1,000 ml Med 03/03/19 08:46 Active IV .BOLUS Sodium Chloride 0.9% [Saline Flush] Med 03/03/19 08:46 Active 10 ml FLUSH Q8HR PRN Peripheral IV Insertion Adult [OM.PC] Routine Oth 03/03/19 08:46 Ordered Medication Orders Sodium Chloride (Normal Saline) 1,000 mls @ 999 mls/hr IV .BOLUS ONE Stop: 03/03/19 09:46 Last Admin: 03/03/19 09:29 Dose: 999 mls/hr Ketorolac Tromethamine (Toradol) 30 mg IVPUSH ONETIME ONE Stop: 03/03/19 09:37 Lorazepam (Ativan) 1 mg IVPUSH ONETIME ONE Stop: 03/03/19 09:37 Sodium Chloride (Saline Flush) 10 ml FLUSH Q8HR PRN PRN Reason: keep vein open Last Admin: 03/03/19 08:50 Dose: 10 ml Labs: Laboratory Tests 03/03/19 03/03/19 Range/Units 08:55 08:55 WBC 7.13 (5.00-10.00) 10^3/uL RBC 4.42 (3.80-5.50) 10^6/uL Hgb 14.2 (12.0-16.0) g/dL Hct 42.4 (37.0-47.0) % MCV 95.9 H (82.0-92.0) fL MCH 32.1 H (27.0-31.0) pg MCHC 33.5 (32.0-36.0) g/dL RDW 11.7 (11.5-14.5) % Plt Count 241 (150-400) 10^3/uL MPV 10.2 (7.4-10.4) fL Immature Gran % (Auto) 0.3 (0.0-5.0) % Neut % (Auto) 71.6 H (50.0-70.0) % Lymph % (Auto) 20.2 (20.0-40.0) % [place] % (Auto) 5.8 (2.0-8.0) % Eos % (Auto) 1.4 (1.0-3.0) % Baso % (Auto) 0.7 (0.0-1.0) % Immature Gran # (Auto) 0.02 (0.00-0.50) 10^3/uL Neut # (Auto) 5.11 (2.50-7.00) 10^3/uL Lymph # (Auto) 1.44 (1.00-4.00) 10^3/uL [place] # (Auto) 0.41 (0.10-0.80) 10^3/uL Eos # (Auto) 0.10 (0.10-0.30) 10^3/uL Baso # (Auto) 0.05 (0.00-0.10) 10^3/uL Sodium 144 (136-145) mmol/L Potassium 4.4 (3.3-5.3) mmol/L Chloride 106 (98-115) mmol/L Carbon Dioxide 27.5 (21.0-32.0) mmol/L Anion Gap 14.9 (5-15) mmol/L BUN 18 (6-25) mg/dL Creatinine 0.76 (0.51-1.17) mg/dL Est Cr Clr Drug Dosing 75.53 mL/min Estimated GFR (MDRD) > 60 mL/min Glucose 202 H (75 - 99) mg/dL Calcium 9.5 (8.7-10.3) mg/dL Total Bilirubin 0.4 (0.2-1.0) mg/dL AST 20 (15-37) U/L ALT 38 (12-78) U/L Alkaline Phosphatase 87 (46-116) IU/L Total Protein 7.6 (6.4-8.2) g/dL Albumin 3.88 (3.00-4.80) g/dL Meds: Medications Generic Name Dose Route Start Last Admin Trade Name Freq PRN Reason Stop Dose Admin Sodium Chloride 1,000 mls @ 999 mls/hr 03/03/19 08:46 03/03/19 09:29 Normal Saline IV 03/03/19 09:46 999 mls/hr .BOLUS ONE Administration Ketorolac Tromethamine 30 mg 03/03/19 09:36 Toradol IVPUSH 03/03/19 09:37 ONETIME ONE Lorazepam 1 mg 03/03/19 09:36 Ativan IVPUSH 03/03/19 09:37 ONETIME ONE Sodium Chloride 10 ml 03/03/19 08:46 03/03/19 08:50 Saline Flush FLUSH 10 ml Q8HR PRN Administration keep vein open Departure - Departure Time of Disposition: 09:53 Disposition: Home, Self-Care 01 Condition: Good Clinical Impression: Peripheral neuropathy - Discharge Information Instructions: Peripheral Neuropathy Referrals: Augusto Acharya MD [Primary Care Provider] - Forms: ED Department Discharge Additional Instructions: 1. discharge home 2. follow up in clinic for further evaluation and management of chronic neuropathy 3. return to ER for worsening symptoms - My Orders Last 24 Hours: My Active Orders 03/03/19 08:46 Peripheral IV Care [RC] . DIRECTED Sodium Chloride 0.9% [Normal Saline] 1,000 ml IV .BOLUS Sodium Chloride 0.9% [Saline Flush] 10 ml FLUSH Q8HR PRN Peripheral IV Insertion Adult [OM.PC] Routine 03/03/19 08:49 URINALYSIS W/MICROSCOPIC [UA W/MICROSCOPIC] [URIN] Stat - Assessment/Plan Last 24 Hours: My Active Orders 03/03/19 08:46 Peripheral IV Care [RC] . DIRECTED Sodium Chloride 0.9% [Normal Saline] 1,000 ml IV .BOLUS Sodium Chloride 0.9% [Saline Flush] 10 ml FLUSH Q8HR PRN Peripheral IV Insertion Adult [OM.PC] Routine 03/03/19 08:49 URINALYSIS W/MICROSCOPIC [UA W/MICROSCOPIC] [URIN] Stat Assessment:: 1. left foot peripheral neuropathy exacerbation Plan: 1. discharge home 2. follow up in clinic for further evaluation and management of chronic neuropathy 3. return to ER for worsening symptoms
[2019-03-03] MEDS ORDERED: LORazepam 2 MG/ML SDV IVPUSH ONE (09:36)
[2019-03-03] MEDS ORDERED: Ketorolac 30 MG/ML SDV IVPUSH ONE (09:36)
== END 2019-03-03 10:30 | disposition home or self-care (01) ==
LOC: KA.ED 08:29
DX: E10.42 Type 1 diabetes mellitus with diabetic polyneuropathy (principal); F41.9 Anxiety disorder, unspecified; F32.9 Major depressive disorder, single episode, unspecified; K21.9 Gastro-esophageal reflux disease without esophagitis; I10 Essential (primary) hypertension; E78.00 Pure hypercholesterolemia, unspecified; Z79.82 Long term (current) use of aspirin; Z79.84 Long term (current) use of oral hypoglycemic drugs; Z79.899 Other long term (current) drug therapy; Z88.1 Allergy status to other antibiotic agents
CPT/HCPCS: 36415; 80053; 85025; 96361; 96374; 99284; J1885; J2060; J7030; 96375

== ENCOUNTER 2019-11-12 15:00 | Emergency (ER) | payer MEDICARE, OTHER ==
--- NOTE | 2019-11-12 15:27 | EDM.PDOC ---
ED HPI GENERAL MEDICAL PROBLEM - General Chief Complaint: Abdominal Pain Stated Complaint: ABDOMINAL PAIN Time Seen by Provider: 11/12/19 15:17 Source of Information: Reports: Patient, Provider History Limitations: Reports: No Limitations - History of Present Illness INITIAL COMMENTS - FREE TEXT/NARRATIVE: Patient is a 59-year-old female who presents to the emergency department this afternoon via private vehicle with a complaint of abdominal pain. Patient states that abdominal pain began early today following a bowel movement. She noticed that there was some blood in stool. I discussed case with Charo buck [facility] provider. I was informed that patient was found to have positive Hemoccult and underwent CT on 11/08. CT results showed no acute intra-abdominal process. Scheduled for colonoscopy on this coming Friday. Patient also has history of anemia. Currently, patient admits to mild suprapubic discomfort, however, no dysuria. Patient denies chest pain, shortness of breath, nausea, vomiting, blood in vomitus, or fever. Onset: Gradual Duration: Hour(s): Location: Reports: Abdomen Quality: Reports: Ache, Pressure Severity: Mild Improves with: Reports: None Worsens with: Reports: None Associated Symptoms: Reports: No Other Symptoms. Denies: Fever/Chills, Nausea/Vomiting Lower Abdominal Pain Score (Numeric/FACES): 10 - Related Data Allergies Allergy/AdvReac Type Severity Reaction Status Date / Time doxycycline Allergy Rash Verified 11/12/19 15:14 Home Meds: Home Meds Desoximetasone [Topicort 0.25% Crm] 1 applic TOP BID PRN 02/02/15 [History] Multivitamin with Minerals [Multivitamins with Minerals] 1 tab PO DAILY@1200 02/02/15 [History] Pregabalin [Lyrica] 200 mg PO QAM 02/02/15 [History] Pregabalin [Lyrica] 400 mg PO BEDTIME 02/02/15 [History] Vilazodone [Viibryd] 40 mg PO DAILY@1200 02/02/15 [History] atorvaSTATin [Lipitor] 40 mg PO BEDTIME 02/02/15 [History] buPROPion [buPROPion XL] 450 mg PO DAILY 02/02/15 [History] Diclofenac Sodium [Voltaren] 75 mg PO BIDMEALS 09/04/15 [History] polyethylene glycoL 3350 [Polyethylene Glycol 3350] 34 gm PO BID 09/04/15 [History] Aspirin [Ecotrin EC] 81 mg PO BEDTIME 12/20/17 [History] Calcium Carbonate/Vitamin D3 [Calcium 1,000 + D3 Caplet] 1 tab PO DAILY@1200 12/20/17 [History] Cyanocobalamin/Folic AC/Vit B6 [B Complex-Folic Acid] 1 tab PO DAILY@1200 12/20/17 [History] Dextrose [Glucose] 1 bottle PO ASDIRECTED PRN 12/20/17 [History] Insulin Glarg,Human.Rec.Analog [Lantus] 30 unit SQ BEDTIME 12/20/17 [History] Lactobacillus Acidophilus [Acidophilus Lactobacilli] 2 cap PO BID 12/20/17 [History] Lactulose [Generlac] 120 ml PO BEDTIME 12/20/17 [History] Magnesium Oxide 400 mg PO BEDTIME 12/20/17 [History] Magnesium Oxide 800 mg PO DAILY 12/20/17 [History] Mirabegron [Myrbetriq] 50 mg PO DAILY 12/20/17 [History] Baclofen 10 mg PO TID PRN 07/18/18 [History] Non-Formulary Medication [NF Drug] 1 applic TOP BID PRN 07/18/18 [History] hydrOXYzine pamoate [Hydroxyzine Pamoate] 25 mg PO Q6H PRN 08/10/18 [History] Insulin Aspart [NovoLOG] 5 units SQ TIDMEALS PRN 03/03/19 [History] Raloxifene [Evista] 60 mg PO DAILY 03/03/19 [History] Acetaminophen [8Hr Arthritis Pain] 1,300 mg PO Q8H PRN 11/11/19 [History] Alum Hydroxide/Mag Carbonate [Gaviscon] 15 - 30 ml PO Q4H PRN 11/11/19 [History] Fluconazole 150 mg PO ONETIME 11/11/19 [History] Linezolid [Zyvox] 600 mg PO BID 11/11/19 [History] Losartan [Cozaar] 25 mg PO DAILY 11/11/19 [History] Nitrofurantoin Monohyd/M-Cryst [Macrobid 100 mg Capsule] 100 mg PO BID 11/11/19 [History] Omeprazole 20 mg PO DAILY 11/11/19 [History] Oxybutynin 5 mg PO DAILY 11/11/19 [History] busPIRone [Buspar] 10 mg PO TID 11/11/19 [History] metFORMIN HCl [Metformin HCl] 1,000 mg PO BIDMEALS 11/11/19 [History] miSOPROStoL [Cytotec] 400 mcg PO BID 11/11/19 [History] rOPINIRole [Requip] 1 mg PO BEDTIME 11/11/19 [History] Phenazopyridine HCl [Pyridium] 200 mg PO TID #6 tablet 11/12/19 [Rx] cephALEXin [Keflex] 500 mg PO TID #21 capsule 11/12/19 [Rx] Past Medical History HEENT History: Reports: Impaired Vision Cardiovascular History: Reports: High Cholesterol, Hypertension Gastrointestinal History: Reports: Chronic Constipation, GERD, Irritable Bowel Syndrome Genitourinary History: Reports: UTI, Recurrent, Other (See Below) Other Genitourinary History: overactive bladder [employer] History: Reports: Musculoskeletal History: Reports: Neck Pain, Chronic Neurological History: Reports: CVA Other Neuro History: mild stroke Psychiatric History: Reports: Anxiety, Depression Endocrine/Metabolic History: Reports: Diabetes, Type I, Obesity/BMI 30+ Dermatologic History: Reports: Other (See Below) Other Dermatologic History: open sore to left foot - Infectious Disease History Infectious Disease History: Reports: Chicken Pox - Past Surgical History Cardiovascular Surgical History: Reports: None Respiratory Surgical History: Reports: None GI Surgical History: Reports: Cholecystectomy, Colonoscopy, EGD Female Surgical History: Reports: None Neurological Surgical History: Reports: C-Spine Musculoskeletal Surgical History: Reports: Carpal Tunnel, Nerve Relocation, Other (See Below) Other Musculoskeletal Surgeries/Procedures:: OR on 08/06/18 to complete amputation of second toe on left foot. Also had right bunion removed. Social & Family History - Family History Family Medical History: Noncontributory HEENT: Reports: Glaucoma Cardiac: Reports: Bypass, Heart Failure Respiratory: Reports: Other (See Below) Other Respiratory Family Hisory: emphysema - Caffeine Use Caffeine Use: Reports: Coffee ED ROS GENERAL - Review of Systems Review Of Systems: Comprehensive ROS is negative, except as noted in HPI. Constitutional: Reports: No Symptoms HEENT: Reports: No Symptoms Respiratory: Reports: No Symptoms Cardiovascular: Reports: No Symptoms Endocrine: Reports: No Symptoms GI/Abdominal: Reports: Abdominal Pain, Bloody Stool : Reports: No Symptoms Musculoskeletal: Reports: No Symptoms Skin: Reports: No Symptoms Neurological: Reports: No Symptoms Psychiatric: Reports: No Symptoms Hematologic/Lymphatic: Reports: No Symptoms Immunologic: Reports: No Symptoms ED EXAM, GI/ABD - Physical Exam Exam: See Below Exam Limited By: No Limitations General Appearance: Alert, WD/WN, No Apparent Distress Nose: Normal Inspection, Normal Mucosa, No Blood Throat/Mouth: Normal Inspection, Normal Oropharynx, No Airway Compromise Head: Atraumatic, Normocephalic Neck: Normal Inspection Respiratory/Chest: No Respiratory Distress, Lungs Clear, No Accessory Muscle Use, Chest Non-Tender, Decreased Breath Sounds Cardiovascular: Regular Rate, Rhythm, No Murmur GI/Abdominal Exam: Normal Bowel Sounds, Soft, No Organomegaly, No Distention, No Abnormal Bruit, No Mass, Tender (Suprapubic) Back Exam: Normal Inspection. No: CVA Tenderness (L), CVA Tenderness (R) Extremities: Other (Left foot ulceration undergoing therapy) Neurological: Alert, Oriented, Normal Cognition Psychiatric: Normal Affect, Normal Mood Skin Exam: Warm, Dry, Normal Color, No Rash Course - Vital Signs Last Recorded V/S: Last Vital Signs Temp 97.4 F 11/12/19 15:15 Pulse 93 11/12/19 15:15 Resp 20 11/12/19 15:15 BP 128/64 11/12/19 15:15 Pulse Ox 98 11/12/19 15:15 - Orders/Labs/Meds Orders: Active Orders 24 hr Category Date Time Status Peripheral IV Care [RC] . DIRECTED Care 11/12/19 15:18 Ordered Phenazopyridine [Pyridium] Med 11/12/19 16:45 Once 100 mg PO ONETIME ONE Sodium Chloride 0.9% @ 999 MLS/HR (1000ml) Med 11/12/19 16:03 Ordered Sodium Chloride 0.9% [Normal Saline] 1,000 ml IV .BOLUS Sodium Chloride 0.9% [Saline Flush] Med 11/12/19 15:18 Ordered 10 ml FLUSH Q8HR PRN Peripheral IV Insertion Adult [OM.PC] Routine Oth 11/12/19 15:18 Ordered Medication Orders Sodium Chloride (Normal Saline) 1,000 mls @ 999 mls/hr IV .BOLUS ONE Stop: 11/12/19 17:03 Last Admin: 11/12/19 16:20 Dose: 999 mls/hr Documented by: DIPESH Phenazopyridine HCl (Pyridium) 100 mg PO ONETIME ONE Stop: 11/12/19 16:46 Sodium Chloride (Saline Flush) 10 ml FLUSH Q8HR PRN PRN Reason: keep vein open Last Admin: 11/12/19 15:53 Dose: 10 ml Documented by: DIPESH Labs: Laboratory Tests 11/12/19 11/12/19 11/12/19 Range/Units 15:20 15:20 15:20 WBC 11.82 H (5.00-10.00) 10^3/uL RBC 2.77 L (3.80-5.50) 10^6/uL Hgb 8.4 L D (12.0-16.0) g/dL Hct 26.8 L (37.0-47.0) % MCV 96.8 H (82.0-92.0) fL MCH 30.3 (27.0-31.0) pg MCHC 31.3 L (32.0-36.0) g/dL RDW 14.1 (11.5-14.5) % Plt Count 197 (150-400) 10^3/uL MPV 10.4 (7.4-10.4) fL Immature Gran % (Auto) 4.2 (0.0-5.0) % Neut % (Auto) 57.8 (50.0-70.0) % Lymph % (Auto) 22.8 (20.0-40.0) % Ford % (Auto) 12.0 H (2.0-8.0) % Eos % (Auto) 2.6 (1.0-3.0) % Baso % (Auto) 0.6 (0.0-1.0) % Neut # (Auto) 6.82 (2.50-7.00) 10^3/uL Lymph # (Auto) 2.70 (1.00-4.00) 10^3/uL Ford # (Auto) 1.42 H (0.10-0.80) 10^3/uL Eos # (Auto) 0.31 H (0.10-0.30) 10^3/uL Baso # (Auto) 0.07 (0.00-0.10) 10^3/uL Immature Gran # (Auto) 0.50 (0.00-0.50) 10^3/uL PT 9.3 (9.2-11.2) SEC INR 0.9 (0.9-1.1) APTT 22.7 L (22.8-31.4) SEC Sodium 144 (136-145) mmol/L Potassium 3.7 (3.3-5.3) mmol/L Chloride 108 (98-115) mmol/L Carbon Dioxide 26.4 (21.0-32.0) mmol/L Anion Gap 13.3 (5-15) mmol/L BUN 7 (6-25) mg/dL Creatinine 0.82 (0.51-1.17) mg/dL Est Cr Clr Drug Dosing 64.58 mL/min Estimated GFR (MDRD) > 60 mL/min Glucose 109 H (75 - 99) mg/dL Calcium 8.5 L (8.7-10.3) mg/dL Total Bilirubin 0.2 (0.2-1.0) mg/dL AST 24 (15-37) U/L ALT 28 (12-78) U/L Alkaline Phosphatase 66 (46-116) IU/L Total Protein 6.4 (6.4-8.2) g/dL Albumin 3.12 (3.00-4.80) g/dL Specimen Type Urine Color (YELLOW) Urine Appearance (CLEAR) Urine pH (5.0-9.0) Ur Specific [place] (1.005-1.030) Urine Protein (NEGATIVE) mg/dL Urine Glucose (UA) (NEGATIVE) mg/dL Urine Ketones (NEGATIVE) mg/dL Urine Occult Blood (NEGATIVE) Urine Nitrite (NEGATIVE) Urine Bilirubin (NEGATIVE) Urine Urobilinogen (0.2-1.0) E.U./dL Ur Leukocyte Esterase (NEGATIVE) Urine RBC (0-5) /HPF Urine WBC (0-5) /HPF Ur Epithelial Cells /LPF Amorphous Sediment (0/HPF) /HPF Urine Bacteria (NONE TO FEW) /HPF 11/12/19 Range/Units 15:52 WBC (5.00-10.00) 10^3/uL RBC (3.80-5.50) 10^6/uL Hgb (12.0-16.0) g/dL Hct (37.0-47.0) % MCV (82.0-92.0) fL MCH (27.0-31.0) pg MCHC (32.0-36.0) g/dL RDW (11.5-14.5) % Plt Count (150-400) 10^3/uL MPV (7.4-10.4) fL Immature Gran % (Auto) (0.0-5.0) % Neut % (Auto) (50.0-70.0) % Lymph % (Auto) (20.0-40.0) % Ford % (Auto) (2.0-8.0) % Eos % (Auto) (1.0-3.0) % Baso % (Auto) (0.0-1.0) % Neut # (Auto) (2.50-7.00) 10^3/uL Lymph # (Auto) (1.00-4.00) 10^3/uL Ford # (Auto) (0.10-0.80) 10^3/uL Eos # (Auto) (0.10-0.30) 10^3/uL Baso # (Auto) (0.00-0.10) 10^3/uL Immature Gran # (Auto) (0.00-0.50) 10^3/uL PT (9.2-11.2) SEC INR (0.9-1.1) APTT (22.8-31.4) SEC Sodium (136-145) mmol/L Potassium (3.3-5.3) mmol/L Chloride (98-115) mmol/L Carbon Dioxide (21.0-32.0) mmol/L Anion Gap (5-15) mmol/L BUN (6-25) mg/dL Creatinine (0.51-1.17) mg/dL Est Cr Clr Drug Dosing mL/min Estimated GFR (MDRD) mL/min Glucose (75 - 99) mg/dL Calcium (8.7-10.3) mg/dL Total Bilirubin (0.2-1.0) mg/dL AST (15-37) U/L ALT (12-78) U/L Alkaline Phosphatase (46-116) IU/L Total Protein (6.4-8.2) g/dL Albumin (3.00-4.80) g/dL Specimen Type Urinvoid Urine Color Dark yellow H (YELLOW) Urine Appearance Clear (CLEAR) Urine pH 5.5 (5.0-9.0) Ur Specific [place] >= 1.030 (1.005-1.030) Urine Protein 100 H (NEGATIVE) mg/dL Urine Glucose (UA) Negative (NEGATIVE) mg/dL Urine Ketones 40 H (NEGATIVE) mg/dL Urine Occult Blood Large H (NEGATIVE) Urine Nitrite Negative (NEGATIVE) Urine Bilirubin Small H (NEGATIVE) Urine Urobilinogen 0.2 (0.2-1.0) E.U./dL Ur Leukocyte Esterase Negative (NEGATIVE) Urine RBC 20-30 H (0-5) /HPF Urine WBC 50-75 H (0-5) /HPF Ur Epithelial Cells Few /LPF Amorphous Sediment Moderate H (0/HPF) /HPF Urine Bacteria Many H (NONE TO FEW) /HPF Meds: Medications Generic Name Dose Route Start Last Admin Trade Name Freq PRN Reason Stop Dose Admin Sodium Chloride 1,000 mls @ 999 mls/hr 11/12/19 16:03 11/12/19 16:20 Normal Saline IV 11/12/19 17:03 999 mls/hr .BOLUS ONE Administration Phenazopyridine HCl 100 mg 11/12/19 16:45 Pyridium PO 11/12/19 16:46 ONETIME ONE Sodium Chloride 10 ml 11/12/19 15:18 11/12/19 15:53 Saline Flush FLUSH 10 ml Q8HR PRN Administration keep vein open Discontinued Medications Generic Name Dose Route Start Last Admin Trade Name Freq PRN Reason Stop Dose Admin Ceftriaxone Sodium 1 gm 11/12/19 16:14 11/12/19 16:29 Rocephin IVPUSH 11/12/19 16:15 1 gm ONETIME ONE Administration Morphine Sulfate 4 mg 11/12/19 15:31 11/12/19 15:41 Morphine IVPUSH 11/12/19 15:32 4 mg ONETIME ONE Administration Ondansetron HCl 4 mg 11/12/19 15:31 11/12/19 15:38 Zofran IVPUSH 11/12/19 15:32 4 mg ONETIME ONE Administration - Re-Assessments/Exams Free Text/Narrative Re-Assessment/Exam: 11/12/19 16:41 Patient afebrile, vital signs stable, pain resolved. Discussed case with Charo. Hemoglobin and hematocrit is stable. patient will be discharged with a follow- up on Friday as scheduled for colonoscopy. Patient given Rocephin in ER, and Keflex and Pyridium prescriptions. 11/12/19 16:42 Departure - Departure Time of Disposition: 16:42 Disposition: Home, Self-Care 01 Condition: Good Clinical Impression: GI bleed Qualifiers: GI bleed type/associated pathology: unspecified gastrointestinal hemorrhage type Qualified Code(s): K92.2 - Gastrointestinal hemorrhage, unspecified Anemia Qualifiers: Anemia type: unspecified type Qualified Code(s): D64.9 - Anemia, unspecified Urinary tract infection Qualifiers: Urinary tract infection type: acute cystitis Hematuria presence: with hematuria Qualified Code(s): N30.01 - Acute cystitis with hematuria - Discharge Information Prescriptions: cephALEXin [Keflex] 500 mg PO TID #21 capsule Phenazopyridine HCl [Pyridium] 200 mg PO TID #6 tablet Instructions: Antibiotic Medicine, Adult, [id number], Gastrointestinal Bleeding, [id number], Urinary Tract Infection, Adult, [id number], Anemia Referrals: Maik Tenorio, [employer] [Primary Care Provider] - Forms: ED Department Discharge Additional Instructions: Follow-up as scheduled for Friday colonoscopy. Return to the emergency department if symptoms continue or worsen. Take medication as directed. Sepsis Event Note (ED) - Focused Exam Vital Signs: Vital Signs Temp Pulse Resp BP Pulse Ox 11/12/19 15:15 97.4 F 93 20 128/64 98 - My Orders Last 24 Hours: My Active Orders 11/12/19 15:18 Peripheral IV Care [RC] . DIRECTED Sodium Chloride 0.9% [Saline Flush] 10 ml FLUSH Q8HR PRN Peripheral IV Insertion Adult [OM.PC] Routine 11/12/19 16:03 Sodium Chloride 0.9% @ 999 MLS/HR (1000ml) Sodium Chloride 0.9% [Normal Saline] 1,000 ml IV .BOLUS 11/12/19 16:45 Phenazopyridine [Pyridium] 100 mg PO ONETIME ONE - Assessment/Plan Last 24 Hours: My Active Orders 11/12/19 15:18 Peripheral IV Care [RC] . DIRECTED Sodium Chloride 0.9% [Saline Flush] 10 ml FLUSH Q8HR PRN Peripheral IV Insertion Adult [OM.PC] Routine 11/12/19 16:03 Sodium Chloride 0.9% @ 999 MLS/HR (1000ml) Sodium Chloride 0.9% [Normal Saline] 1,000 ml IV .BOLUS 11/12/19 16:45 Phenazopyridine [Pyridium] 100 mg PO ONETIME ONE Assessment:: Urinary tract infection Plan: Follow-up with PCP
[2019-11-12 15:31] VITALS: BP 128/64; PULSE 93
[2019-11-12] MEDS: Ondansetron 4 MG/2 ML SDV IVPUSH ONE (15:38)
[2019-11-12] MEDS: Morphine 4 MG/ML VIAL IVPUSH ONE (15:41)
[2019-11-12] MEDS: Sodium Chloride 0.9% 10 ML Syringe FLUSH PRN (15:53)
[2019-11-12 16:08] LABS: ANION GAP 13.3 mmol/L (5-15); CHLORIDE,CL 108 mmol/L (98-115); SODIUM,NA 144 mmol/L (136-145)
[2019-11-12] MEDS: Sodium Chloride 0.9% 1,000 ML IV ONE (16:20)
[2019-11-12] MEDS: cefTRIAXone 1 GM Vial IVPUSH ONE (16:29)
[2019-11-12 16:35] LABS: PTT,PARTIAL THROMBOPLSTIN TIME 22.7 SEC (22.8-31.4)
[2019-11-12] MEDS: Phenazopyridine 100 MG Tab PO ONE (16:47)
== END 2019-11-12 17:20 | disposition home or self-care (01) ==
LOC: KA.ED 15:00
DX: K92.2 Gastrointestinal hemorrhage, unspecified (principal); D64.9 Anemia, unspecified; N30.01 Acute cystitis with hematuria; E78.00 Pure hypercholesterolemia, unspecified; I10 Essential (primary) hypertension; K21.9 Gastro-esophageal reflux disease without esophagitis; Z86.73 Personal history of transient ischemic attack (TIA), and cerebral infarction without residual deficits; F41.9 Anxiety disorder, unspecified; F32.9 Major depressive disorder, single episode, unspecified; E66.9 Obesity, unspecified; Z79.82 Long term (current) use of aspirin; Z79.899 Other long term (current) drug therapy; Z88.1 Allergy status to other antibiotic agents
CPT/HCPCS: 36415; 80053; 81001; 82272; 85025; 85610; 85730; 96374; 96375; 99284; A9270; J0696; J2270; J2405; J7030

== ENCOUNTER 2019-12-14 13:53 | Emergency (ER) | payer MEDICARE, OTHER ==
[2019-12-14 14:07] VITALS: BP 160/114; PULSE 93
--- NOTE | 2019-12-14 14:16 | EDM.PDOC ---
ED HPI GENERAL MEDICAL PROBLEM - General Chief Complaint: Cardiovascular Problem Stated Complaint: HBP Time Seen by Provider: 12/14/19 14:00 Source of Information: Reports: Patient - History of Present Illness INITIAL COMMENTS - FREE TEXT/NARRATIVE: Forgot to take antihypertensives yesterday, leading to elevated blood pressure. When she realized this she took her pill yesterday and then again this morning as per instructions. For some reason blood pressure seemed elevated at home and had contacted her clinic for evaluation, but was unsure of ability to get transportation to the clinic. She then summoned 911 for ambulance transport here to the emergency department for evaluation. Initial pressures were slightly elevated with no symptoms acknowledged. She is resting comfortably upon my arrival in the room with a blood pressure of 130/90 at the time of my assessment. Onset: Today Onset Date: 12/13/19 Onset Time: 09:00 Duration: Hour(s): Location: Reports: Head Severity: Moderate Improves with: Reports: Rest Worsens with: Reports: Movement Context: Reports: Activity - Related Data Allergies Allergy/AdvReac Type Severity Reaction Status Date / Time doxycycline Allergy Rash Verified 12/14/19 13:57 Home Meds: Home Meds Desoximetasone [Topicort 0.25% Crm] 1 applic TOP BID PRN 02/02/15 [History] Multivitamin with Minerals [Multivitamins with Minerals] 1 tab PO DAILY@1200 02/02/15 [History] Pregabalin [Lyrica] 200 mg PO QAM 02/02/15 [History] Pregabalin [Lyrica] 400 mg PO BEDTIME 02/02/15 [History] Vilazodone [Viibryd] 40 mg PO DAILY@1200 02/02/15 [History] atorvaSTATin [Lipitor] 40 mg PO BEDTIME 02/02/15 [History] buPROPion [buPROPion XL] 450 mg PO DAILY 02/02/15 [History] polyethylene glycoL 3350 [Polyethylene Glycol 3350] 34 gm PO BEDTIME 09/04/15 [History] Aspirin [Ecotrin EC] 81 mg PO BEDTIME 12/20/17 [History] Calcium Carbonate/Vitamin D3 [Calcium 1,000 + D3 Caplet] 1 tab PO DAILY@1200 12/20/17 [History] Cyanocobalamin/Folic AC/Vit B6 [B Complex-Folic Acid] 1 tab PO DAILY@1200 12/20/17 [History] Dextrose [Glucose] 1 bottle PO ASDIRECTED PRN 12/20/17 [History] Insulin Glarg,Human.Rec.Analog [Lantus] 30 unit SQ BEDTIME 12/20/17 [History] Lactobacillus Acidophilus [Acidophilus Lactobacilli] 2 cap PO BID 12/20/17 [History] Lactulose [Generlac] 120 ml PO BEDTIME 12/20/17 [History] Magnesium Oxide 400 mg PO BEDTIME 12/20/17 [History] Magnesium Oxide 800 mg PO DAILY 12/20/17 [History] Mirabegron [Myrbetriq] 50 mg PO DAILY 12/20/17 [History] Baclofen 10 mg PO TID PRN 07/18/18 [History] Non-Formulary Medication [NF Drug] 1 applic TOP BID PRN 07/18/18 [History] hydrOXYzine pamoate [Hydroxyzine Pamoate] 25 mg PO Q6H PRN 08/10/18 [History] Insulin Aspart [NovoLOG] 5 units SQ TIDMEALS PRN 03/03/19 [History] Raloxifene [Evista] 60 mg PO DAILY 03/03/19 [History] Acetaminophen [8Hr Arthritis Pain] 1,300 mg PO Q8H PRN 11/11/19 [History] Alum Hydroxide/Mag Carbonate [Gaviscon] 15 - 30 ml PO Q4H PRN 11/11/19 [History] Omeprazole 20 mg PO DAILY 11/11/19 [History] busPIRone [Buspar] 10 mg PO TID 11/11/19 [History] metFORMIN HCl [Metformin HCl] 1,000 mg PO BIDMEALS 11/11/19 [History] rOPINIRole [Requip] 1 mg PO BEDTIME 11/11/19 [History] Iron Polysaccharides Complex [Ferrex 150] 150 mg PO DAILY@1200 12/14/19 [History] Losartan Potassium 100 mg PO DAILY 12/14/19 [History] hydroCHLOROthiazide [Hydrochlorothiazide] 12.5 mg PO DAILY 12/14/19 [History] Past Medical History HEENT History: Reports: Impaired Vision Cardiovascular History: Reports: High Cholesterol, Hypertension Gastrointestinal History: Reports: Chronic Constipation, GERD, Irritable Bowel Syndrome Genitourinary History: Reports: UTI, Recurrent, Other (See Below) Other Genitourinary History: overactive bladder [employer] History: Reports: Musculoskeletal History: Reports: Neck Pain, Chronic Neurological History: Reports: CVA Other Neuro History: mild stroke Psychiatric History: Reports: Anxiety, Depression Endocrine/Metabolic History: Reports: Diabetes, Type I, Obesity/BMI 30+ Dermatologic History: Reports: Other (See Below) Other Dermatologic History: open sore to left foot - Infectious Disease History Infectious Disease History: Reports: Chicken Pox - Past Surgical History Cardiovascular Surgical History: Reports: None Respiratory Surgical History: Reports: None GI Surgical History: Reports: Cholecystectomy, Colonoscopy, EGD Female Surgical History: Reports: None Neurological Surgical History: Reports: C-Spine Musculoskeletal Surgical History: Reports: Carpal Tunnel, Nerve Relocation, Other (See Below) Other Musculoskeletal Surgeries/Procedures:: OR on 08/06/18 to complete amputation of second toe on left foot. Also had right bunion removed. Social & Family History - Family History Family Medical History: Noncontributory HEENT: Reports: Glaucoma Cardiac: Reports: Bypass, Heart Failure Respiratory: Reports: Other (See Below) Other Respiratory Family Hisory: emphysema - Caffeine Use Caffeine Use: Reports: Coffee ED ROS GENERAL - Review of Systems Review Of Systems: Comprehensive ROS is negative, except as noted in HPI. ED EXAM, GENERAL - Physical Exam Exam: See Below Free Text/Narrative:: Alert oriented x3 in no acute distress. HEENT negative discharge or deformity. PERRLA no icterus no injection. Neck is soft supple there is slight deformity in the posterior aspect of the cervical and upper thoracic spine which is chronic in appearance. Thorax is clear no wheezes no crackles. Cardiac regular. Abdomen rotund soft bowel sounds are present no tenderness. No edema to the lower extremities. rectal is deferred. Reassessment of blood pressure shows near preferred range with no abnormality seen on electrolyte panel. No symptoms acknowledged at this time. Course - Vital Signs Last Recorded V/S: Last Vital Signs Temp 36.3 C 12/14/19 13:58 Pulse 93 12/14/19 13:58 Resp 18 12/14/19 13:58 BP 160/114 H 12/14/19 13:58 Pulse Ox 98 12/14/19 13:58 - Orders/Labs/Meds Labs: Laboratory Tests 12/14/19 Range/Units 14:25 Sodium 143 (136-145) mmol/L Potassium 3.8 (3.3-5.3) mmol/L Chloride 103 (98-115) mmol/L Carbon Dioxide 30.3 (21.0-32.0) mmol/L Anion Gap 13.5 (5-15) mmol/L BUN 9 (6-25) mg/dL Creatinine 0.75 (0.51-1.17) mg/dL Est Cr Clr Drug Dosing 70.60 mL/min Estimated GFR (MDRD) > 60 mL/min Glucose 110 H (75 - 99) mg/dL Calcium 9.0 (8.7-10.3) mg/dL Departure - Departure Time of Disposition: 15:22 Disposition: Home, Self-Care 01 Condition: Good Clinical Impression: Hypertensive heart disease Hypertension Qualifiers: Hypertension type: unspecified Qualified Code(s): I10 - Essential (primary) hypertension Referrals: Maik Tenorio NP [Primary Care Provider] - Forms: ED Department Discharge Additional Instructions: Your electrolyte panel looks fine. You need to maintain adequate scheduling of your medication to assure that this omission does not occur frequently as it will cause your blood pressure to elevate. Do not check your blood pressure every 15 or 20 minutes as the anxiety caused by your elevated blood pressure, will cause it to further elevate. Take all your medications as directed, maintain good fluid and food intake. Follow-up with your clinic and provider as needed. Sepsis Event Note (ED) - Evaluation Sepsis Screening Result: No Definite Risk - Focused Exam Vital Signs: Vital Signs Temp Pulse Resp BP Pulse Ox 12/14/19 13:58 36.3 C 93 18 160/114 H 98 - Problem List & Annotations (1) Medication non-compliance due to excessive pill burden SNOMED Code(s): 586841859, 789411077 Code(s): Z91.14 - PATIENT'S OTHER NONCOMPLIANCE WITH MEDICATION REGIMEN Status: Acute Priority: Medium Current Visit: Yes (2) Hypertension SNOMED Code(s): 57708354 Code(s): I10 - ESSENTIAL (PRIMARY) HYPERTENSION Status: Acute Priority: Medium Current Visit: Yes Qualifiers: Hypertension type: unspecified Qualified Code(s): I10 - Essential (primary) hypertension - Problem List Review Problem List Initiated/Reviewed/Updated: Yes - Assessment/Plan Plan: Your electrolyte panel looks fine. You need to maintain adequate scheduling of your medication to assure that this omission does not occur frequently as it will cause your blood pressure to elevate. Do not check your blood pressure every 15 or 20 minutes as the anxiety caused by your elevated blood pressure, will cause it to further elevate. Take all your medications as directed, maintain good fluid and food intake. Follow-up with your clinic and provider as needed.
[2019-12-14 15:04] LABS: ANION GAP 13.5 mmol/L (5-15); CHLORIDE,CL 103 mmol/L (98-115); SODIUM,NA 143 mmol/L (136-145)
== END 2019-12-14 15:55 | disposition home or self-care (01) ==
LOC: KA.ED 13:53
DX: I11.9 Hypertensive heart disease without heart failure (principal); K21.9 Gastro-esophageal reflux disease without esophagitis; E10.9 Type 1 diabetes mellitus without complications; E66.9 Obesity, unspecified; F41.9 Anxiety disorder, unspecified; F32.9 Major depressive disorder, single episode, unspecified; Z90.49 Acquired absence of other specified parts of digestive tract; Z79.899 Other long term (current) drug therapy
CPT/HCPCS: 36415; 80048; 99284

== ENCOUNTER 2020-06-10 13:01 | Emergency (ER) | payer MEDICARE, OTHER ==
--- NOTE | 2020-06-10 13:15 | EDM.PDOC ---
ED HPI GENERAL MEDICAL PROBLEM - General Chief Complaint: Headache Stated Complaint: elevated blood pressure Time Seen by Provider: 06/10/20 13:15 Source of Information: Reports: Patient History Limitations: Reports: No Limitations - History of Present Illness INITIAL COMMENTS - FREE TEXT/NARRATIVE: Marilou, 60-year-old female, presents to the emergency department for evaluation of her blood pressure. She states she is been checking it at home and it has been chronically elevated for the past few days. When she repeats exam, finds equal or higher readings. Feels anxious at times. She is taking all of her medications, stating she is not missed any dosing and has been doing well with her compliance. She complains of mild headache symptoms on her initial arrival but does not truly acknowledge that on examination. Is not photophobic. She denies any Covid exposures or symptoms stating she is received 1 dose of the immunization. Head Pain Score (Numeric/FACES): 3 - Related Data Allergies Allergy/AdvReac Type Severity Reaction Status Date / Time doxycycline Allergy Rash Verified 06/10/20 13:22 Home Meds: Home Meds Desoximetasone [Topicort 0.25% Crm] 1 applic TOP BID PRN 02/02/15 [History] Multivitamin with Minerals [Multivitamins with Minerals] 1 tab PO DAILY@1200 02/02/15 [History] Pregabalin [Lyrica] 200 mg PO QAM 02/02/15 [History] Pregabalin [Lyrica] 400 mg PO BEDTIME 02/02/15 [History] Vilazodone [Viibryd] 40 mg PO DAILY@1200 02/02/15 [History] atorvaSTATin [Lipitor] 40 mg PO BEDTIME 02/02/15 [History] buPROPion [buPROPion XL] 450 mg PO DAILY 02/02/15 [History] polyethylene glycoL 3350 [Polyethylene Glycol 3350] 34 gm PO BEDTIME 09/04/15 [History] Aspirin [Ecotrin EC] 81 mg PO BEDTIME 12/20/17 [History] Calcium Carbonate/Vitamin D3 [Calcium 1,000 + D3 Caplet] 1 tab PO DAILY@1200 12/20/17 [History] Cyanocobalamin/Folic AC/Vit B6 [B Complex-Folic Acid] 1 tab PO DAILY@1200 12/20/17 [History] Dextrose [Glucose] 1 bottle PO ASDIRECTED PRN 12/20/17 [History] Insulin Glarg,Human.Rec.Analog [Lantus] 30 unit SQ BEDTIME 12/20/17 [History] Lactobacillus Acidophilus [Acidophilus Lactobacilli] 2 cap PO BID 12/20/17 [History] Lactulose [Generlac] 120 ml PO BEDTIME 12/20/17 [History] Magnesium Oxide 400 mg PO BEDTIME 12/20/17 [History] Magnesium Oxide 800 mg PO DAILY 12/20/17 [History] Mirabegron [Myrbetriq] 50 mg PO DAILY 12/20/17 [History] Baclofen 10 mg PO TID PRN 07/18/18 [History] Non-Formulary Medication [NF Drug] 1 applic TOP BID PRN 07/18/18 [History] hydrOXYzine pamoate [Hydroxyzine Pamoate] 25 mg PO Q6H PRN 08/10/18 [History] Insulin Aspart [NovoLOG] 5 units SQ TIDMEALS PRN 03/03/19 [History] Raloxifene [Evista] 60 mg PO DAILY 03/03/19 [History] Acetaminophen [8Hr Arthritis Pain] 1,300 mg PO Q8H PRN 11/11/19 [History] Alum Hydroxide/Mag Carbonate [Gaviscon] 15 - 30 ml PO Q4H PRN 11/11/19 [History] Omeprazole 20 mg PO DAILY 11/11/19 [History] busPIRone [Buspar] 10 mg PO TID 11/11/19 [History] metFORMIN HCl [Metformin HCl] 1,000 mg PO BIDMEALS 11/11/19 [History] rOPINIRole [Requip] 1 mg PO BEDTIME 11/11/19 [History] Iron Polysaccharides Complex [Ferrex 150] 150 mg PO DAILY@1200 12/14/19 [History] Losartan Potassium 100 mg PO DAILY 12/14/19 [History] hydroCHLOROthiazide [Hydrochlorothiazide] 25 mg PO DAILY 12/14/19 [History] Past Medical History HEENT History: Reports: Impaired Vision Cardiovascular History: Reports: High Cholesterol, Hypertension Gastrointestinal History: Reports: Chronic Constipation, GERD, Irritable Bowel Syndrome Genitourinary History: Reports: UTI, Recurrent, Other (See Below) Other Genitourinary History: overactive bladder 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: Musculoskeletal History: Reports: Neck Pain, Chronic Neurological History: Reports: CVA Other Neuro History: mild stroke Psychiatric History: Reports: Anxiety, Depression Endocrine/Metabolic History: Reports: Diabetes, Type I, Obesity/BMI 30+ Dermatologic History: Reports: Other (See Below) Other Dermatologic History: open sore to left foot - Infectious Disease History Infectious Disease History: Reports: Chicken Pox - Past Surgical History Cardiovascular Surgical History: Reports: None Respiratory Surgical History: Reports: None GI Surgical History: Reports: Cholecystectomy, Colonoscopy, EGD Female Surgical History: Reports: None Neurological Surgical History: Reports: C-Spine Musculoskeletal Surgical History: Reports: Carpal Tunnel, Nerve Relocation, Other (See Below) Other Musculoskeletal Surgeries/Procedures:: OR on 08/06/18 to complete amputati on of second toe on left foot. Also had right bunion removed. Social & Family History - Family History Family Medical History: No Pertinent Family History HEENT: Reports: Glaucoma Cardiac: Reports: Bypass, Heart Failure Respiratory: Reports: Other (See Below) Other Respiratory Family Hisory: emphysema - Tobacco Use Tobacco Use Within Last Twelve Months: No - Caffeine Use Caffeine Use: Reports: Coffee ED ROS GENERAL - Review of Systems Review Of Systems: Comprehensive ROS is negative, except as noted in HPI. ED EXAM, GENERAL - Physical Exam Exam: See Below Free Text/Narrative:: Alert, oriented, cheerful, in no acute distress. PERRLA no icterus no injection. HEENT is negative discharge or deformity with pink moist mucous membranes. Neck is soft supple with no rigidity she has the deformity from her surgical procedure to the cervical spine region in the musculature and skin. Thorax is mildly diminished throughout with no wheezes I do not appreciate any crackles. She does not exhibit any respiratory distress. Cardiac is S1-S2 heart tones are somewhat distant no appreciated murmur. Abdomen is rotund bowel sounds are present she denies any complaint of discomfort to the flank nor abdomen. There is no edema to the lower extremities. Radial pulse correlates with apical heart rate. She is able to move her extremities with no discomfort states she is feeling slightly anxious. During the course of her arrival in examination blood pressures have been trending downward nearly acceptable at the time of my examination. Course - Vital Signs Last Recorded V/S: Last Vital Signs Temp 97.9 F 06/10/20 13:15 Pulse 84 02/20/21 14:17 Resp 14 06/10/20 14:17 BP 107/68 06/10/20 14:17 Pulse Ox 96 06/10/20 14:17 - Orders/Labs/Meds Labs: Laboratory Tests 06/10/20 06/10/20 Range/Units 11:45 13:35 WBC 6.07 (5.00-10.00) 10^3/uL RBC 4.07 (3.80-5.50) 10^6/uL Hgb 12.3 D (12.0-16.0) g/dL Hct 38.0 (37.0-47.0) % MCV 93.4 H D (82.0-92.0) fL MCH 30.2 (27.0-31.0) pg MCHC 32.4 (32.0-36.0) g/dL RDW 13.0 (11.5-14.5) % Plt Count 235 (150-400) 10^3/uL MPV 9.5 (7.4-10.4) fL Immature Gran % (Auto) 0.2 (0.0-5.0) % Neut % (Auto) 65.7 (50.0-70.0) % Lymph % (Auto) 23.1 (20.0-40.0) % Randolph % (Auto) 8.2 H (2.0-8.0) % Eos % (Auto) 2.0 (1.0-3.0) % Baso % (Auto) 0.8 (0.0-1.0) % Neut # (Auto) 3.99 (2.50-7.00) 10^3/uL Lymph # (Auto) 1.40 (1.00-4.00) 10^3/uL Randolph # (Auto) 0.50 (0.10-0.80) 10^3/uL Eos # (Auto) 0.12 (0.10-0.30) 10^3/uL Baso # (Auto) 0.05 (0.00-0.10) 10^3/uL Immature Gran # (Auto) 0.01 (0.00-0.50) 10^3/uL Sodium 137 (136-145) mmol/L Potassium 4.6 (3.5-5.1) mmol/L Chloride 101 (98-107) mmol/L Carbon Dioxide 27.6 (21.0-32.0) mmol/L Anion Gap 13.0 (5-15) mmol/L BUN 13 (7-18) mg/dL Creatinine 0.98 (0.51-1.17) mg/dL Est Cr Clr Drug Dosing 53.37 mL/min Estimated GFR (MDRD) 58 mL/min Glucose 116 (70-140) mg/dL Calcium 9.3 (8.7-10.3) mg/dL Total Bilirubin 0.2 (0.2-1.0) mg/dL AST 16 (15-37) U/L ALT 19 (14-63) U/L Alkaline Phosphatase 78 (46-116) U/L Total Protein 7.0 (6.4-8.2) g/dL Albumin 3.61 (3.40-5.00) g/dL Meds: Medications Discontinued Medications Generic Name Dose Route Start Last Admin Trade Name Freq PRN Reason Stop Dose Admin Alprazolam 0.25 mg 06/10/20 13:23 06/10/20 13:28 Xanax PO 06/10/20 13:24 0.25 mg ONETIME ONE Administration Departure - Departure Time of Disposition: 14:20 Disposition: Home, Self-Care 01 Condition: Good Clinical Impression: Hypertension Qualifiers: Hypertension type: essential hypertension Qualified Code(s): I10 - Essential (primary) hypertension - Discharge Information *PRESCRIPTION DRUG MONITORING PROGRAM REVIEWED*: Not Applicable *COPY OF PRESCRIPTION DRUG MONITORING REPORT IN PATIENT NORMA: Not Applicable Instructions: Hypertension, Adult, [id number] Referrals: Augusto Acharya MD [Primary Care Provider] - Forms: ED Department Discharge Additional Instructions: Your blood pressure is in good control. Do not repeatedly check your blood pressure at home, as the first time it appears elevated, your anxiety causes your blood pressure to go up further. Then when you recheck it 20 to 30 minutes later the elevation is likely as much or higher than it previously was which then causes your anxiety to go up again, in turn causing your blood pressure to go up which then leads to the other symptoms that you will transiently develop. Follow-up with your clinic as needed or return to the emergency department if severe symptoms should develop. Continue taking all your medications as directed as it seems things are appropriate overall in your health care plan. Make sure you exercise and diet appropriately to avoid comorbid factors that attribute to blood pressure and anxiety. Limiting your salt intake and worrying about nonessential items as well. Sepsis Event Note (ED) - Focused Exam Vital Signs: Vital Signs Temp Pulse Resp BP Pulse Ox 06/10/20 14:17 84 14 107/68 96 06/10/20 14:01 85 14 111/68 97 06/10/20 13:36 88 14 117/83 96 06/10/20 13:15 97.9 F 92 14 154/114 H 99 - Problem List & Annotations (1) Anxiety about health SNOMED Code(s): 923975604 Code(s): F41.8 - OTHER SPECIFIED ANXIETY DISORDERS Status: Acute Priority: High (2) Hypertension SNOMED Code(s): 15815704 Code(s): I10 - ESSENTIAL (PRIMARY) HYPERTENSION Status: Chronic Priority: Medium Annotation/Comment:: Dramatic improvement as she visits with us and is informed of evaluation process. Symptoms resolving blood pressure continues to improve normotensive at the time of this note Qualifiers: Hypertension type: essential hypertension Qualified Code(s): I10 - Essential (primary) hypertension - Problem List Review Problem List Initiated/Reviewed/Updated: Yes - Assessment/Plan Plan: Your blood pressure is in good control. Do not repeatedly check your blood pressure at home, as the first time it appears elevated, your anxiety causes your blood pressure to go up further. Then when you recheck it 20 to 30 minutes later the elevation is likely as much or higher than it previously was which then causes your anxiety to go up again, in turn causing your blood pressure to go up which then leads to the other symptoms that you will transiently develop. Follow-up with your clinic as needed or return to the emergency department if severe symptoms should develop. Continue taking all your medications as directed as it seems things are appropriate overall in your health care plan. Make sure you exercise and diet appropriately to avoid comorbid factors that attribute to blood pressure and anxiety. Limiting your salt intake and worrying about nonessential items as well.
[2020-06-10] MEDS: ALPRAZolam 0.25 MG Tab PO ONE (13:28)
[2020-06-10 14:17] VITALS: BP 107/68; PULSE 84
== END 2020-06-10 14:25 | disposition home or self-care (01) ==
LOC: KA.ED 13:01
DX: I10 Essential (primary) hypertension (principal); E78.00 Pure hypercholesterolemia, unspecified; K21.9 Gastro-esophageal reflux disease without esophagitis; E10.9 Type 1 diabetes mellitus without complications; E66.9 Obesity, unspecified; Z88.1 Allergy status to other antibiotic agents; Z79.82 Long term (current) use of aspirin; Z79.899 Other long term (current) drug therapy; Z86.73 Personal history of transient ischemic attack (TIA), and cerebral infarction without residual deficits; Z68.31 Body mass index [BMI] 31.0-31.9, adult
CPT/HCPCS: 36415; 80053; 85025; 99283; 99284; A9270-GY

== ENCOUNTER 2020-09-01 18:55 | Emergency (ER) | payer MEDICARE, OTHER ==
[2020-09-01] MEDS ORDERED: LORazepam 0.5 MG Tab PO ONE (19:28)
--- NOTE | 2020-09-01 19:51 | EDM.PDOC ---
ED HPI GENERAL MEDICAL PROBLEM - General Chief Complaint: General Stated Complaint: ITCHING Time Seen by Provider: 09/01/20 19:07 Source of Information: Reports: Patient, Family (son) History Limitations: Reports: No Limitations - History of Present Illness INITIAL COMMENTS - FREE TEXT/NARRATIVE: Patient presents with non-stop itching of her hands, forearms, feet and lower legs. No rash at all. She took Benadryl and called DESTIN Gamboa in clinic, then tried Claritin also. No help. She has diabetes with neuropathy and anxiety. She takes Lyrica, Buspar for these. She has had an itch like this in the remote past that responded to Lorazepam 1 mg. She says 0.5 mg doesn't help her itch or anxiety. - Related Data Allergies Allergy/AdvReac Type Severity Reaction Status Date / Time doxycycline Allergy Rash Verified 09/01/20 19:03 Home Meds: Home Meds Desoximetasone [Topicort 0.25% Crm] 1 applic TOP BID PRN 02/02/15 [History] Multivitamin with Minerals [Multivitamins with Minerals] 1 tab PO DAILY@1200 02/02/15 [History] Pregabalin [Lyrica] 200 mg PO QAM 02/02/15 [History] Pregabalin [Lyrica] 400 mg PO BEDTIME 02/02/15 [History] Vilazodone [Viibryd] 40 mg PO DAILY@1200 02/02/15 [History] atorvaSTATin [Lipitor] 40 mg PO BEDTIME 02/02/15 [History] buPROPion [buPROPion XL] 450 mg PO DAILY 02/02/15 [History] polyethylene glycoL 3350 [Polyethylene Glycol 3350] 34 gm PO BEDTIME 09/04/15 [History] Aspirin [Ecotrin EC] 81 mg PO BEDTIME 12/20/17 [History] Calcium Carbonate/Vitamin D3 [Calcium 1,000 + D3 Caplet] 1 tab PO DAILY@1200 12/20/17 [History] Cyanocobalamin/Folic AC/Vit B6 [B Complex-Folic Acid] 1 tab PO DAILY@1200 12/20/17 [History] Dextrose [Glucose] 1 bottle PO ASDIRECTED PRN 12/20/17 [History] Insulin Glarg,Human.Rec.Analog [Lantus] 30 unit SQ BEDTIME 12/20/17 [History] Lactobacillus Acidophilus [Acidophilus Lactobacilli] 2 cap PO BID 12/20/17 [History] Lactulose [Generlac] 120 ml PO BEDTIME 12/20/17 [History] Magnesium Oxide 400 mg PO BEDTIME 12/20/17 [History] Magnesium Oxide 800 mg PO DAILY 12/20/17 [History] Mirabegron [Myrbetriq] 50 mg PO DAILY 12/20/17 [History] Baclofen 10 mg PO TID PRN 07/18/18 [History] Non-Formulary Medication [NF Drug] 1 applic TOP BID PRN 07/18/18 [History] hydrOXYzine pamoate [Hydroxyzine Pamoate] 25 mg PO Q6H PRN 08/10/18 [History] Insulin Aspart [NovoLOG] 5 units SQ TIDMEALS PRN 03/03/19 [History] Raloxifene [Evista] 60 mg PO DAILY 03/03/19 [History] Acetaminophen [8Hr Arthritis Pain] 1,300 mg PO Q8H PRN 11/11/19 [History] Alum Hydroxide/Mag Carbonate [Gaviscon] 15 - 30 ml PO Q4H PRN 11/11/19 [History] Omeprazole 20 mg PO DAILY 11/11/19 [History] busPIRone [Buspar] 10 mg PO TID 11/11/19 [History] metFORMIN HCl [Metformin HCl] 1,000 mg PO BIDMEALS 11/11/19 [History] rOPINIRole [Requip] 1 mg PO BEDTIME 11/11/19 [History] Iron Polysaccharides Complex [Ferrex 150] 150 mg PO DAILY@1200 12/14/19 [History] Losartan Potassium 100 mg PO DAILY 12/14/19 [History] hydroCHLOROthiazide [Hydrochlorothiazide] 25 mg PO DAILY 12/14/19 [History] Past Medical History HEENT History: Reports: Impaired Vision Cardiovascular History: Reports: High Cholesterol, Hypertension Gastrointestinal History: Reports: Chronic Constipation, GERD, Irritable Bowel Syndrome Genitourinary History: Reports: UTI, Recurrent, Other (See Below) Other Genitourinary History: overactive bladder 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: Musculoskeletal History: Reports: Neck Pain, Chronic Neurological History: Reports: CVA Other Neuro History: mild stroke Psychiatric History: Reports: Anxiety, Depression Endocrine/Metabolic History: Reports: Diabetes, Type I, Obesity/BMI 30+ Dermatologic History: Reports: Other (See Below) Other Dermatologic History: open sore to left foot - Infectious Disease History Infectious Disease History: Reports: Chicken Pox - Past Surgical History Head Surgeries/Procedures: Reports: None HEENT Surgical History: Reports: None Cardiovascular Surgical History: Reports: None Respiratory Surgical History: Reports: None GI Surgical History: Reports: Cholecystectomy, Colonoscopy, EGD Female Surgical History: Reports: None Endocrine Surgical History: Reports: None Neurological Surgical History: Reports: C-Spine Other Neurological Surgeries/Procedures: Multiple surgeries on neck. Musculoskeletal Surgical History: Reports: Carpal Tunnel, Nerve Relocation, Other (See Below) Other Musculoskeletal Surgeries/Procedures:: OR on 08/06/18 to complete amputation of second toe on left foot. Also had right bunion removed. Dermatological Surgical History: Reports: None Social & Family History - Family History Family Medical History: No Pertinent Family History HEENT: Reports: Glaucoma Cardiac: Reports: Bypass, Heart Failure Respiratory: Reports: Other (See Below) Other Respiratory Family Hisory: emphysema - Tobacco Use Tobacco Use Status *Q: Never Tobacco User - Caffeine Use Caffeine Use: Reports: Soda - Recreational Drug Use Recreational Drug Use: No ED ROS GENERAL - Review of Systems Review Of Systems: See Below Constitutional: Denies: Fever, Chills, Malaise, Weakness HEENT: Denies: Ear Pain, Throat Pain, Vision Change Respiratory: Denies: Shortness of Breath, Cough Cardiovascular: Denies: Chest Pain, Lightheadedness, Syncope GI/Abdominal: Denies: Abdominal Pain, Diarrhea, Nausea, Vomiting : Denies: Dysuria, Flank Pain Musculoskeletal: Denies: Neck Pain, Shoulder Pain, Arm Pain, Back Pain, Hand Pain Skin: Reports: Pruritis. Denies: Cyanosis, Jaundice, Mottled, Pallor, Diaphoresis Neurological: Denies: Confusion, Dizziness, Seizure, Syncope, Trouble Speaking, Difficulty Walking Psychiatric: Reports: Anxiety. Denies: Agitation, Confusion ED EXAM, GENERAL - Physical Exam Exam: See Below Exam Limited By: No Limitations General Appearance: Alert, WD/WN, No Apparent Distress Eye Exam: Bilateral Eye: EOMI, Normal Inspection, PERRL Ears: Normal External Exam, Hearing Grossly Normal Nose: Normal Inspection, No Blood Throat/Mouth: Normal Inspection, Normal Lips, Normal Voice, No Airway Compromise Head: Atraumatic, Normocephalic Neck: Normal Inspection, Full Range of Motion Respiratory/Chest: No Respiratory Distress, Lungs Clear, Normal Breath Sounds, No Accessory Muscle Use Cardiovascular: Regular Rate, Rhythm, No Murmur Back Exam: Normal Inspection Extremities: Normal Inspection, Normal Range of Motion. No: Redness (no excoriations) Neurological: Alert, Oriented, Normal Cognition, No Motor/Sensory Deficits Psychiatric: Normal Affect, Normal Mood Skin Exam: Warm, Dry, Intact, Normal Color, No Rash Course - Vital Signs Last Recorded V/S: Last Vital Signs Temp 96.3 F L 09/01/20 19:03 Pulse 116 H 09/01/20 19:03 Resp 20 09/01/20 19:03 BP 174/106 H 09/01/20 19:03 Pulse Ox 98 09/01/20 19:03 - Orders/Labs/Meds Meds: Medications Discontinued Medications Generic Name Dose Route Start Last Admin Trade Name Freq PRN Reason Stop Dose Admin Lorazepam 1 mg 09/01/20 19:28 Lorazepam 0.5 Mg Tab PO 09/01/20 19:29 ONETIME ONE - Re-Assessments/Exams Free Text/Narrative Re-Assessment/Exam: 09/01/20 20:06 Patient is feeling quite a bit better. Her blood pressure has come down nicely just by waiting and sitting prior to Lorazepam dosing. She feels ready to go home. We discussed findings. Patient is stable. Departure - Departure Time of Disposition: 20:03 Disposition: Home, Self-Care 01 Condition: Good Clinical Impression: Pruritus of both hands, History of pruritus of skin - Discharge Information Referrals: Monica Kamara PA-C [Primary Care Provider] - Additional Instructions: You can use your Lorazepam at home as directed. Follow up with your PCP if this persists. Drink 8 cups of water daily, as it can help itchy, dry skin. Sepsis Event Note (ED) - Evaluation Sepsis Screening Result: No Definite Risk - Focused Exam Vital Signs: Vital Signs Temp Pulse Resp BP Pulse Ox 09/01/20 19:03 96.3 F L 116 H 20 174/106 H 98
[2020-09-01 19:57] VITALS: BP 137/95; PULSE 90
== END 2020-09-01 20:18 | disposition home or self-care (01) ==
LOC: KA.ED 18:55
DX: L29.9 Pruritus, unspecified (principal); E78.00 Pure hypercholesterolemia, unspecified; I10 Essential (primary) hypertension; E10.9 Type 1 diabetes mellitus without complications; E66.9 Obesity, unspecified; Z68.32 Body mass index [BMI] 32.0-32.9, adult; Z88.1 Allergy status to other antibiotic agents; Z79.82 Long term (current) use of aspirin; Z86.73 Personal history of transient ischemic attack (TIA), and cerebral infarction without residual deficits
CPT/HCPCS: 99282; 99283; A9270

== ENCOUNTER 2020-09-02 01:12 | Emergency (ER) | payer MEDICARE, OTHER ==
[2020-09-02 01:16] VITALS: BP 127/88; PULSE 97
[2020-09-02] MEDS ORDERED: hydrOXYzine HCl 25 MG Tab PO ONE ×2 (02:10→02:19)
--- NOTE | 2020-09-02 02:30 | EDM.PDOC ---
ED HPI GENERAL MEDICAL PROBLEM - General Chief Complaint: General Stated Complaint: Itching Time Seen by Provider: 09/02/20 01:50 Source of Information: Reports: Patient History Limitations: Reports: No Limitations - History of Present Illness INITIAL COMMENTS - FREE TEXT/NARRATIVE: Patient returns to ER with persistent itching of hands. She says she went home and couldn't sleep. Her feet itch a little but not much. No other problems. She wonders if I can give her Lorazepam to help her sleep too, she forgot she has that at home already. A few hours ago when she was here I gave her Lorazepam since that has helped her itch and anxiety before, but didn't provide adequate relief. - Related Data Allergies Allergy/AdvReac Type Severity Reaction Status Date / Time doxycycline Allergy Rash Verified 09/02/20 01:22 Home Meds: Home Meds Desoximetasone [Topicort 0.25% Crm] 1 applic TOP BID PRN 02/02/15 [History] Multivitamin with Minerals [Multivitamins with Minerals] 1 tab PO DAILY@1200 02/02/15 [History] Pregabalin [Lyrica] 200 mg PO QAM 02/02/15 [History] Pregabalin [Lyrica] 400 mg PO BEDTIME 02/02/15 [History] Vilazodone [Viibryd] 40 mg PO DAILY@1200 02/02/15 [History] atorvaSTATin [Lipitor] 40 mg PO BEDTIME 02/02/15 [History] buPROPion [buPROPion XL] 450 mg PO DAILY 02/02/15 [History] polyethylene glycoL 3350 [Polyethylene Glycol 3350] 34 gm PO BEDTIME 09/04/15 [History] Aspirin [Ecotrin EC] 81 mg PO BEDTIME 12/20/17 [History] Calcium Carbonate/Vitamin D3 [Calcium 1,000 + D3 Caplet] 1 tab PO DAILY@1200 12/20/17 [History] Cyanocobalamin/Folic AC/Vit B6 [B Complex-Folic Acid] 1 tab PO DAILY@1200 12/20/17 [History] Dextrose [Glucose] 1 bottle PO ASDIRECTED PRN 12/20/17 [History] Insulin Glarg,Human.Rec.Analog [Lantus] 30 unit SQ BEDTIME 12/20/17 [History] Lactobacillus Acidophilus [Acidophilus Lactobacilli] 2 cap PO BID 12/20/17 [History] Lactulose [Generlac] 120 ml PO BEDTIME 12/20/17 [History] Magnesium Oxide 400 mg PO BEDTIME 12/20/17 [History] Magnesium Oxide 800 mg PO DAILY 12/20/17 [History] Mirabegron [Myrbetriq] 50 mg PO DAILY 12/20/17 [History] Baclofen 10 mg PO TID PRN 07/18/18 [History] Non-Formulary Medication [NF Drug] 1 applic TOP BID PRN 07/18/18 [History] hydrOXYzine pamoate [Hydroxyzine Pamoate] 25 mg PO Q6H PRN 08/10/18 [History] Insulin Aspart [NovoLOG] 5 units SQ TIDMEALS PRN 03/03/19 [History] Raloxifene [Evista] 60 mg PO DAILY 03/03/19 [History] Acetaminophen [8Hr Arthritis Pain] 1,300 mg PO Q8H PRN 11/11/19 [History] Alum Hydroxide/Mag Carbonate [Gaviscon] 15 - 30 ml PO Q4H PRN 11/11/19 [History] Omeprazole 20 mg PO DAILY 11/11/19 [History] busPIRone [Buspar] 10 mg PO TID 11/11/19 [History] metFORMIN HCl [Metformin HCl] 1,000 mg PO BIDMEALS 11/11/19 [History] rOPINIRole [Requip] 1 mg PO BEDTIME 11/11/19 [History] Iron Polysaccharides Complex [Ferrex 150] 150 mg PO DAILY@1200 12/14/19 [History] Losartan Potassium 100 mg PO DAILY 12/14/19 [History] hydroCHLOROthiazide [Hydrochlorothiazide] 25 mg PO DAILY 12/14/19 [History] Past Medical History HEENT History: Reports: Impaired Vision Cardiovascular History: Reports: High Cholesterol, Hypertension Gastrointestinal History: Reports: Chronic Constipation, GERD, Irritable Bowel Syndrome Genitourinary History: Reports: UTI, Recurrent, Other (See Below) Other Genitourinary History: overactive bladder 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: Musculoskeletal History: Reports: Neck Pain, Chronic Neurological History: Reports: CVA Other Neuro History: mild stroke Psychiatric History: Reports: Anxiety, Depression Endocrine/Metabolic History: Reports: Diabetes, Type I, Obesity/BMI 30+ Dermatologic History: Reports: Other (See Below) Other Dermatologic History: open sore to left foot - Infectious Disease History Infectious Disease History: Reports: Chicken Pox - Past Surgical History Head Surgeries/Procedures: Reports: None HEENT Surgical History: Reports: None Cardiovascular Surgical History: Reports: None Respiratory Surgical History: Reports: None GI Surgical History: Reports: Cholecystectomy, Colonoscopy, EGD Female Surgical History: Reports: None Endocrine Surgical History: Reports: None Neurological Surgical History: Reports: C-Spine Other Neurological Surgeries/Procedures: Multiple surgeries on neck. Musculoskeletal Surgical History: Reports: Carpal Tunnel, Nerve Relocation, Other (See Below) Other Musculoskeletal Surgeries/Procedures:: OR on 08/06/18 to complete amputation of second toe on left foot. Also had right bunion removed. Dermatological Surgical History: Reports: None Social & Family History - Family History Family Medical History: No Pertinent Family History HEENT: Reports: Glaucoma Cardiac: Reports: Bypass, Heart Failure Respiratory: Reports: Other (See Below) Other Respiratory Family Hisory: emphysema - Tobacco Use Tobacco Use Status *Q: Never Tobacco User - Caffeine Use Caffeine Use: Reports: Soda - Recreational Drug Use Recreational Drug Use: No ED ROS GENERAL - Review of Systems Review Of Systems: Comprehensive ROS is negative, except as noted in HPI. ED EXAM, GENERAL - Physical Exam Exam: See Below Exam Limited By: No Limitations General Appearance: Alert, WD/WN, No Apparent Distress Eye Exam: Bilateral Eye: EOMI, Normal Inspection, PERRL Ears: Normal External Exam, Hearing Grossly Normal Nose: Normal Inspection, No Blood Throat/Mouth: Normal Inspection, Normal Lips, Normal Voice, No Airway Compromise Head: Atraumatic, Normocephalic Neck: Normal Inspection Respiratory/Chest: No Respiratory Distress, Lungs Clear, Normal Breath Sounds Cardiovascular: Regular Rate, Rhythm, No Murmur Extremities: Normal Inspection (no rash, erythema) Neurological: Alert, Oriented, No Motor/Sensory Deficits (distal CMS intact in fingers and toes bilat) Psychiatric: Normal Affect, Normal Mood Skin Exam: Warm, Dry, Intact, Normal Color, No Rash Course - Vital Signs Last Recorded V/S: Last Vital Signs Temp 97.4 F 09/02/20 01:15 Pulse 97 09/02/20 01:15 Resp 18 09/02/20 01:15 BP 127/88 09/02/20 01:15 Pulse Ox 95 09/02/20 01:15 - Orders/Labs/Meds Orders: Active Orders 24 hr Category Date Time Status hydrOXYzine HCL [Atarax] Med 09/02/20 02:19 Once 25 mg PO ONETIME ONE Meds: Medications Discontinued Medications Generic Name Dose Route Start Last Admin Trade Name Esme PRN Reason Stop Dose Admin Hydroxyzine HCl 100 mg 09/02/20 02:10 Hydroxyzine Hcl 25 Mg Tab PO 09/02/20 02:11 ONETIME ONE - Re-Assessments/Exams Free Text/Narrative Re-Assessment/Exam: 09/02/20 02:35 Reviewed most recent renal function panel from two months ago. I discussed findings with patient and encouraged her to seek help from a specialist such as commercial print salesman or neurologist if this persists. She is given a dose of Hydroxyzine 25 mg in ER with a Rx for 25 mg po tid prn #20. Discharged to home in stable condition. Departure - Departure Time of Disposition: 02:20 Disposition: Home, Self-Care 01 Condition: Good Clinical Impression: Pruritus - Discharge Information Referrals: Monica Kamara PA-C [Primary Care Provider] - Additional Instructions: supervisor rubber covering more Hydroxyzine with the prescription tomorrow morning if this helps. If this doesn't resolve the itching, follow up with your PCP on Friday and possibly see a specialist for other options. Sepsis Event Note (ED) - Evaluation Sepsis Screening Result: No Definite Risk - Focused Exam Vital Signs: Vital Signs Temp Pulse Resp BP Pulse Ox 09/02/20 01:15 97.4 F 97 18 127/88 95 - My Orders Last 24 Hours: My Active Orders 09/02/20 02:19 hydrOXYzine HCL [Atarax] 25 mg PO ONETIME ONE - Assessment/Plan Last 24 Hours: My Active Orders 09/02/20 02:19 hydrOXYzine HCL [Atarax] 25 mg PO ONETIME ONE
== END 2020-09-02 02:55 | disposition home or self-care (01) ==
LOC: KA.ED 01:12
DX: L29.9 Pruritus, unspecified (principal); E78.00 Pure hypercholesterolemia, unspecified; I10 Essential (primary) hypertension; K21.9 Gastro-esophageal reflux disease without esophagitis; E10.9 Type 1 diabetes mellitus without complications; E66.9 Obesity, unspecified; Z79.82 Long term (current) use of aspirin; Z88.1 Allergy status to other antibiotic agents; Z79.4 Long term (current) use of insulin; Z68.32 Body mass index [BMI] 32.0-32.9, adult
CPT/HCPCS: 99282; 99283; A9270

== ENCOUNTER 2020-09-03 13:48 | Emergency (ER) | payer MEDICARE, OTHER ==
[2020-09-03 14:02] VITALS: BP 131/93; PULSE 115
--- NOTE | 2020-09-03 14:47 | EDM.PDOC ---
ED HPI GENERAL MEDICAL PROBLEM - General Chief Complaint: General Stated Complaint: ITCHY HANDS Time Seen by Provider: 09/03/20 14:32 Source of Information: Reports: Patient History Limitations: Reports: No Limitations - History of Present Illness INITIAL COMMENTS - FREE TEXT/NARRATIVE: Patient presents with itchy hands. She has been here 3 days in a row now with this and has tried Benadryl, Claritin, Lorazepam, Hydroxyzine without improvement. She is on Lyrica which is also a treatment for pruritus. - Related Data Allergies Allergy/AdvReac Type Severity Reaction Status Date / Time doxycycline Allergy Rash Verified 09/03/20 13:59 Home Meds: Home Meds Desoximetasone [Topicort 0.25% Crm] 1 applic TOP BID PRN 02/02/15 [History] Multivitamin with Minerals [Multivitamins with Minerals] 1 tab PO DAILY@1200 02/02/15 [History] Pregabalin [Lyrica] 200 mg PO QAM 02/02/15 [History] Pregabalin [Lyrica] 400 mg PO BEDTIME 02/02/15 [History] Vilazodone [Viibryd] 40 mg PO DAILY@1200 02/02/15 [History] atorvaSTATin [Lipitor] 40 mg PO BEDTIME 02/02/15 [History] buPROPion [buPROPion XL] 450 mg PO DAILY 02/02/15 [History] polyethylene glycoL 3350 [Polyethylene Glycol 3350] 34 gm PO BEDTIME 09/04/15 [History] Aspirin [Ecotrin EC] 81 mg PO BEDTIME 12/20/17 [History] Calcium Carbonate/Vitamin D3 [Calcium 1,000 + D3 Caplet] 1 tab PO DAILY@1200 12/20/17 [History] Cyanocobalamin/Folic AC/Vit B6 [B Complex-Folic Acid] 1 tab PO DAILY@1200 12/20/17 [History] Dextrose [Glucose] 1 bottle PO ASDIRECTED PRN 12/20/17 [History] Insulin Glarg,Human.Rec.Analog [Lantus] 30 unit SQ BEDTIME 12/20/17 [History] Lactobacillus Acidophilus [Acidophilus Lactobacilli] 2 cap PO BID 12/20/17 [History] Lactulose [Generlac] 120 ml PO BEDTIME 12/20/17 [History] Magnesium Oxide 400 mg PO BEDTIME 12/20/17 [History] Magnesium Oxide 800 mg PO DAILY 12/20/17 [History] Mirabegron [Myrbetriq] 50 mg PO DAILY 12/20/17 [History] Baclofen 10 mg PO TID PRN 07/18/18 [History] Non-Formulary Medication [NF Drug] 1 applic TOP BID PRN 07/18/18 [History] hydrOXYzine pamoate [Hydroxyzine Pamoate] 25 mg PO Q6H PRN 08/10/18 [History] Insulin Aspart [NovoLOG] 5 units SQ TIDMEALS PRN 03/03/19 [History] Raloxifene [Evista] 60 mg PO DAILY 03/03/19 [History] Acetaminophen [8Hr Arthritis Pain] 1,300 mg PO Q8H PRN 11/11/19 [History] Alum Hydroxide/Mag Carbonate [Gaviscon] 15 - 30 ml PO Q4H PRN 11/11/19 [History] Omeprazole 20 mg PO DAILY 11/11/19 [History] busPIRone [Buspar] 10 mg PO TID 11/11/19 [History] metFORMIN HCl [Metformin HCl] 1,000 mg PO BIDMEALS 11/11/19 [History] rOPINIRole [Requip] 1 mg PO BEDTIME 11/11/19 [History] Iron Polysaccharides Complex [Ferrex 150] 150 mg PO DAILY@1200 12/14/19 [History] Losartan Potassium 100 mg PO DAILY 12/14/19 [History] hydroCHLOROthiazide [Hydrochlorothiazide] 25 mg PO DAILY 12/14/19 [History] Past Medical History HEENT History: Reports: Impaired Vision Cardiovascular History: Reports: High Cholesterol, Hypertension Gastrointestinal History: Reports: Chronic Constipation, GERD, Irritable Bowel Syndrome Genitourinary History: Reports: UTI, Recurrent, Other (See Below) Other Genitourinary History: overactive bladder 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: Musculoskeletal History: Reports: Neck Pain, Chronic Neurological History: Reports: CVA Other Neuro History: mild stroke Psychiatric History: Reports: Anxiety, Depression Endocrine/Metabolic History: Reports: Diabetes, Type I, Obesity/BMI 30+ Dermatologic History: Reports: Other (See Below) Other Dermatologic History: open sore to left foot - Infectious Disease History Infectious Disease History: Reports: Chicken Pox - Past Surgical History Head Surgeries/Procedures: Reports: None HEENT Surgical History: Reports: None Cardiovascular Surgical History: Reports: None Respiratory Surgical History: Reports: None GI Surgical History: Reports: Cholecystectomy, Colonoscopy, EGD Female Surgical History: Reports: None Endocrine Surgical History: Reports: None Neurological Surgical History: Reports: C-Spine Other Neurological Surgeries/Procedures: Multiple surgeries on neck. Musculoskeletal Surgical History: Reports: Carpal Tunnel, Nerve Relocation, Other (See Below) Other Musculoskeletal Surgeries/Procedures:: OR on 08/06/18 to complete amputation of second toe on left foot. Also had right bunion removed. Dermatological Surgical History: Reports: None Social & Family History - Family History Family Medical History: No Pertinent Family History HEENT: Reports: Glaucoma Cardiac: Reports: Bypass, Heart Failure Respiratory: Reports: Other (See Below) Other Respiratory Family Hisory: emphysema - Caffeine Use Caffeine Use: Reports: Soda ED ROS GENERAL - Review of Systems Review Of Systems: See Below Constitutional: Denies: Fever, Chills, Malaise, Weakness HEENT: Denies: Ear Pain, Throat Pain, Vision Change Respiratory: Denies: Shortness of Breath, Cough Cardiovascular: Denies: Chest Pain, Lightheadedness, Syncope Endocrine: Denies: Fatigue GI/Abdominal: Denies: Abdominal Pain, Diarrhea, Vomiting : Denies: Dysuria, Flank Pain Musculoskeletal: Reports: No Symptoms Skin: Denies: Cyanosis, Jaundice, Mottled, Pallor, Diaphoresis Neurological: Denies: Confusion, Dizziness, Headache, Numbness, Seizure, Syncope, Tingling, Trouble Speaking, Difficulty Walking Psychiatric: Reports: Anxiety, Depression. Denies: Agitation, Confusion ED EXAM, GENERAL - Physical Exam Exam: See Below Exam Limited By: No Limitations General Appearance: Alert, WD/WN, No Apparent Distress Eye Exam: Bilateral Eye: EOMI, Normal Inspection, PERRL Ears: Normal External Exam, Hearing Grossly Normal Nose: Normal Inspection, No Blood Throat/Mouth: Normal Inspection, Normal Lips, Normal Voice, No Airway Compromise Head: Atraumatic, Normocephalic Neck: Normal Inspection, Full Range of Motion Respiratory/Chest: No Respiratory Distress, Lungs Clear, Normal Breath Sounds, No Accessory Muscle Use Cardiovascular: Regular Rate, Rhythm, No Murmur Back Exam: Normal Inspection, Full Range of Motion. No: CVA Tenderness (L), CVA Tenderness (R) Extremities: Normal Inspection, Normal Range of Motion, Non-Tender, No Pedal Edema, Normal Capillary Refill, Other (distal CMS intact in fingers and toes bilat) Neurological: Alert, Oriented, Normal Cognition, No Motor/Sensory Deficits Psychiatric: Normal Affect, Normal Mood Skin Exam: Warm, Dry, Intact, Normal Color, No Rash Course - Vital Signs Last Recorded V/S: Last Vital Signs Temp 96.9 F 09/03/20 13:53 Pulse 115 H 09/03/20 13:53 Resp 16 09/03/20 13:53 BP 131/93 H 09/03/20 13:53 Pulse Ox 96 09/03/20 13:53 - Orders/Labs/Meds Labs: Laboratory Tests 09/03/20 09/03/20 Range/Units 15:20 15:20 WBC 8.32 (5.00-10.00) 10^3/uL RBC 5.30 (3.80-5.50) 10^6/uL Hgb 16.0 D (12.0-16.0) g/dL Hct 48.5 H (37.0-47.0) % MCV 91.5 (82.0-92.0) fL MCH 30.2 (27.0-31.0) pg MCHC 33.0 (32.0-36.0) g/dL RDW 12.5 (11.5-14.5) % Plt Count 297 (150-400) 10^3/uL MPV 9.6 (7.4-10.4) fL Immature Gran % (Auto) 0.1 (0.0-5.0) % Neut % (Auto) 70.0 (50.0-70.0) % Lymph % (Auto) 20.3 (20.0-40.0) % Bladen % (Auto) 8.7 H (2.0-8.0) % Eos % (Auto) 0.4 L (1.0-3.0) % Baso % (Auto) 0.5 (0.0-1.0) % Neut # (Auto) 5.83 (2.50-7.00) 10^3/uL Lymph # (Auto) 1.69 (1.00-4.00) 10^3/uL [place]aden # (Auto) 0.72 (0.10-0.80) 10^3/uL Eos # (Auto) 0.03 L (0.10-0.30) 10^3/uL Baso # (Auto) 0.04 (0.00-0.10) 10^3/uL Immature Gran # (Auto) 0.01 (0.00-0.50) 10^3/uL Sodium 141 (136-145) mmol/L Potassium 3.8 (3.5-5.1) mmol/L Chloride 100 (98-107) mmol/L Carbon Dioxide 26.7 (21.0-32.0) mmol/L Anion Gap 18.1 H (5-15) mmol/L BUN 21 H (7-18) mg/dL Creatinine 0.94 (0.51-1.17) mg/dL Est Cr Clr Drug Dosing 55.65 mL/min Estimated GFR (MDRD) > 60 mL/min Glucose 234 H (70-140) mg/dL Calcium 10.1 (8.7-10.3) mg/dL Total Bilirubin 0.5 (0.2-1.0) mg/dL AST 17 (15-37) U/L ALT 25 (14-63) U/L Alkaline Phosphatase 103 (46-116) U/L C-Reactive Protein 0.9 (0.0-0.9) mg/dL Total Protein 8.8 H (6.4-8.2) g/dL Albumin 4.41 (3.40-5.00) g/dL - Re-Assessments/Exams Free Text/Narrative Re-Assessment/Exam: 09/03/20 14:51 We discussed that there are more options to consider for treatment of pruritus but are more long-term treatments and some include drug interactions that I don't feel comfortable implementing in ER. She really needs to see her PCP and/or specialist to evaluate this more thoroughly. I will run some labs today also. She is on so many medications that it is likely, in my opinion, they may be causing this itch. 09/03/20 16:27 Labs look okay except glucose is 234. She noticed her insulin pen may be empty and not sure if she got the proper dose today. We discussed findings and recommendations. She is discharged to home today with no change in treatment, in stable condition. Departure - Departure Time of Disposition: 16:25 Disposition: Home, Self-Care 01 Condition: Good Clinical Impression: Pruritus of both hands, Hyperglycemia due to diabetes mellitus - Discharge Information Referrals: Monica Kamara PA-C [Primary Care Provider] - Forms: ED Department Discharge Additional Instructions: Follow up with your PCP tomorrow. Make sure you are getting your proper dose of insulin. If the old one is empty switch to a new one. Sepsis Event Note (ED) - Evaluation Sepsis Screening Result: No Definite Risk - Focused Exam Vital Signs: Vital Signs Temp Pulse Resp BP Pulse Ox 09/03/20 13:53 96.9 F 115 H 16 131/93 H 96
[2020-09-03 15:43] LABS: ANION GAP 18.1 mmol/L (5-15); CHLORIDE,CL 100 mmol/L (98-107); SODIUM,NA 141 mmol/L (136-145)
== END 2020-09-03 16:40 | disposition home or self-care (01) ==
LOC: KA.ED 13:48
DX: L98.9 Disorder of the skin and subcutaneous tissue, unspecified (principal); E11.65 Type 2 diabetes mellitus with hyperglycemia; E78.00 Pure hypercholesterolemia, unspecified; I10 Essential (primary) hypertension; K21.9 Gastro-esophageal reflux disease without esophagitis; E10.9 Type 1 diabetes mellitus without complications; E66.9 Obesity, unspecified; Z68.31 Body mass index [BMI] 31.0-31.9, adult; Z88.1 Allergy status to other antibiotic agents; Z79.899 Other long term (current) drug therapy; Z86.73 Personal history of transient ischemic attack (TIA), and cerebral infarction without residual deficits
CPT/HCPCS: 36415; 80053; 85025; 86140; 99283

== ENCOUNTER 2020-09-22 07:13 | Emergency (ER) | payer MEDICARE, OTHER ==
[2020-09-22 07:19] VITALS: BP 133/79; PULSE 97
--- NOTE | 2020-09-22 07:27 | EDM.PDOC ---
ED HPI GENERAL MEDICAL PROBLEM - General Chief Complaint: General Stated Complaint: nervous itch Time Seen by Provider: 09/22/20 07:15 Source of Information: Reports: Patient, Significant Other History Limitations: Reports: No Limitations - History of Present Illness INITIAL COMMENTS - FREE TEXT/NARRATIVE: Patient presents with itching all over. She says this is a nervous itch. She has taken Benadryl and Hydroxyzine this morning but no help. She took Lorazepam last evening also. She has been in the ER multiple times recently for this and has tried numerous medications to try to resolve it without success. The last time I saw her we tried Hydroxyzine and she says that seemed to work for awhile. She has been taking it twice a day now. 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 - Related Data Allergies Allergy/AdvReac Type Severity Reaction Status Date / Time doxycycline Allergy Rash Verified 09/22/20 07:35 Home Meds: Home Meds Desoximetasone [Topicort 0.25% Crm] 1 applic TOP BID PRN 02/02/15 [History] Multivitamin with Minerals [Multivitamins with Minerals] 1 tab PO DAILY@1200 02/02/15 [History] Pregabalin [Lyrica] 200 mg PO QAM 02/02/15 [History] Pregabalin [Lyrica] 400 mg PO BEDTIME 02/02/15 [History] Vilazodone [Viibryd] 40 mg PO DAILY@1200 02/02/15 [History] atorvaSTATin [Lipitor] 40 mg PO BEDTIME 02/02/15 [History] buPROPion [buPROPion XL] 450 mg PO DAILY 02/02/15 [History] polyethylene glycoL 3350 [Polyethylene Glycol 3350] 34 gm PO BEDTIME 09/04/15 [History] Aspirin [Ecotrin EC] 81 mg PO BEDTIME 12/20/17 [History] Calcium Carbonate/Vitamin D3 [Calcium 1,000 + D3 Caplet] 1 tab PO DAILY@1200 12/20/17 [History] Cyanocobalamin/Folic AC/Vit B6 [B Complex-Folic Acid] 1 tab PO DAILY@1200 12/20/17 [History] Dextrose [Glucose] 1 bottle PO ASDIRECTED PRN 12/20/17 [History] Insulin Glarg,Human.Rec.Analog [Lantus] 30 unit SQ BEDTIME 12/20/17 [History] Lactobacillus Acidophilus [Acidophilus Lactobacilli] 2 cap PO BID 12/20/17 [History] Lactulose [Generlac] 120 ml PO BEDTIME 12/20/17 [History] Magnesium Oxide 400 mg PO BEDTIME 12/20/17 [History] Magnesium Oxide 800 mg PO DAILY 12/20/17 [History] Mirabegron [Myrbetriq] 50 mg PO DAILY 12/20/17 [History] Baclofen 10 mg PO TID PRN 07/18/18 [History] Non-Formulary Medication [NF Drug] 1 applic TOP BID PRN 07/18/18 [History] hydrOXYzine pamoate [Hydroxyzine Pamoate] 25 mg PO Q6H PRN 08/10/18 [History] Insulin Aspart [NovoLOG] 5 units SQ TIDMEALS PRN 03/03/19 [History] Raloxifene [Evista] 60 mg PO DAILY 03/03/19 [History] Acetaminophen [8Hr Arthritis Pain] 1,300 mg PO Q8H PRN 11/11/19 [History] Alum Hydroxide/Mag Carbonate [Gaviscon] 15 - 30 ml PO Q4H PRN 11/11/19 [History] Omeprazole 20 mg PO DAILY 11/11/19 [History] busPIRone [Buspar] 10 mg PO TID 11/11/19 [History] metFORMIN HCl [Metformin HCl] 1,000 mg PO BIDMEALS 11/11/19 [History] rOPINIRole [Requip] 1 mg PO BEDTIME 11/11/19 [History] Iron Polysaccharides Complex [Ferrex 150] 150 mg PO DAILY@1200 12/14/19 [History] Losartan Potassium 100 mg PO DAILY 12/14/19 [History] hydroCHLOROthiazide [Hydrochlorothiazide] 25 mg PO DAILY 12/14/19 [History] LORazepam [Ativan] 1 mg PO DAILY PRN 09/22/20 [History] cephALEXin [Cephalexin] 500 mg PO TID 09/22/20 [History] Past Medical History HEENT History: Reports: Impaired Vision Cardiovascular History: Reports: High Cholesterol, Hypertension Gastrointestinal History: Reports: Chronic Constipation, GERD, Irritable Bowel Syndrome Genitourinary History: Reports: UTI, Recurrent, Other (See Below) Other Genitourinary History: overactive bladder [employer]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: Musculoskeletal History: Reports: Neck Pain, Chronic Neurological History: Reports: CVA Other Neuro History: mild stroke Psychiatric History: Reports: Anxiety, Depression Endocrine/Metabolic History: Reports: Diabetes, Type I, Obesity/BMI 30+ Dermatologic History: Reports: Other (See Below) Other Dermatologic History: open sore to left foot - Infectious Disease History Infectious Disease History: Reports: Chicken Pox - Past Surgical History Head Surgeries/Procedures: Reports: None HEENT Surgical History: Reports: None Cardiovascular Surgical History: Reports: None Respiratory Surgical History: Reports: None GI Surgical History: Reports: Cholecystectomy, Colonoscopy, EGD Female Surgical History: Reports: None Endocrine Surgical History: Reports: None Neurological Surgical History: Reports: C-Spine Other Neurological Surgeries/Procedures: Multiple surgeries on neck. Musculoskeletal Surgical History: Reports: Carpal Tunnel, Nerve Relocation, Ot her (See Below) Other Musculoskeletal Surgeries/Procedures:: OR on 08/06/18 to complete amputation of second toe on left foot. Also had right bunion removed. Dermatological Surgical History: Reports: None Social & Family History - Family History Family Medical History: No Pertinent Family History HEENT: Reports: Glaucoma Cardiac: Reports: Bypass, Heart Failure Respiratory: Reports: Other (See Below) Other Respiratory Family Hisory: emphysema - Caffeine Use Caffeine Use: Reports: Soda ED ROS GENERAL - Review of Systems Review Of Systems: See Below Constitutional: Denies: Fever, Chills, Malaise, Weakness HEENT: Denies: Ear Pain, Throat Pain, Vision Change Respiratory: Denies: Shortness of Breath, Cough Cardiovascular: Denies: Chest Pain, Lightheadedness, Syncope GI/Abdominal: Denies: Abdominal Pain, Vomiting : Denies: Dysuria Musculoskeletal: Reports: No Symptoms (nothing acute) Skin: Denies: Cyanosis, Jaundice, Mottled, Pallor, Diaphoresis Neurological: Denies: Confusion, Dizziness, Seizure, Syncope, Trouble Speaking Psychiatric: Reports: Anxiety. Denies: Agitation ED EXAM, GENERAL - Physical Exam Exam: See Below Exam Limited By: No Limitations General Appearance: Alert, WD/WN, No Apparent Distress Eye Exam: Bilateral Eye: EOMI, Normal Inspection, PERRL Ears: Normal External Exam, Hearing Grossly Normal Nose: Normal Inspection, No Blood Throat/Mouth: Normal Inspection, Normal Lips, Normal Voice, No Airway Compromise Head: Atraumatic, Normocephalic Neck: Limited Range of Motion (chronic) Respiratory/Chest: No Respiratory Distress, No Accessory Muscle Use Cardiovascular: Regular Rate, Rhythm Extremities: Normal Range of Motion Skin Exam: Warm, Dry, Intact, Normal Color, No Rash, Other (no excoriations) Course - Re-Assessments/Exams Free Text/Narrative Re-Assessment/Exam: 09/22/20 08:10 I discussed with patient that I don't have any other ideas for this but will give a dose of Lorazepam now since she last took 12 hours ago. On a previous visit I considered Doxepin but feel that would be too risky with all of the potential interactions with her other medications. I recommend follow up with her PCP and referral to neurology. Patient stable at discharge. 09/22/20 09:10 I discussed briefly with DESTIN Gamboa and she doesn't have any additional ideas for the itch. She will consider neurology but right now the priority is vascular consult for the carotid blockage. Departure - Departure Time of Disposition: 07:58 Disposition: Home, Self-Care 01 Condition: Good Clinical Impression: Generalized pruritus, Anxiety - Discharge Information Referrals: Monica Kamara PA-C [Primary Care Provider] - Additional Instructions: Drink 8 cups of water daily. Continue your regular medications. Call or follow up with your PCP for ongoing treatment options and discuss referral to neurology for further evaluation of the itching.
[2020-09-22] MEDS ORDERED: LORazepam 0.5 MG Tab PO ONE (07:57)
== END 2020-09-22 08:30 | disposition home or self-care (01) ==
LOC: KA.ED 07:13
DX: L29.9 Pruritus, unspecified (principal); F41.9 Anxiety disorder, unspecified; E78.00 Pure hypercholesterolemia, unspecified; I10 Essential (primary) hypertension; K21.9 Gastro-esophageal reflux disease without esophagitis; E66.9 Obesity, unspecified; Z68.30 Body mass index [BMI] 30.0-30.9, adult; Z79.82 Long term (current) use of aspirin; Z79.899 Other long term (current) drug therapy
CPT/HCPCS: 99282; 99284; A9270-GY

== ENCOUNTER 2021-04-05 02:50 | Emergency (ER) | payer MEDICARE, OTHER ==
--- NOTE | 2021-04-05 03:38 | EDM.PDOC ---
ED HPI GENERAL MEDICAL PROBLEM - General Chief Complaint: General Stated Complaint: numb/itchy hands & feet Time Seen by Provider: 04/05/21 03:15 Source of Information: Reports: Patient History Limitations: Reports: No Limitations - History of Present Illness INITIAL COMMENTS - FREE TEXT/NARRATIVE: 61 YO WF PRESENTS TO ER WITH COMPLAINTS OF ITCHING AND PAIN TO HER HANDS AND FEE T. PT REPORTS THIS IS A CHRONIC ISSUE AND SHE HAS TRIED HYDROXYZINE WELL BENADRYL FOR HER SYMPTOMS WITHOUT RELIEF. PT WAS SEEN IN THE CLINIC YESTERDAY AND STARTED ON PREDNISONE WHICH SHE STATES HASN'T HELPED HER SYMPTOMS. PT WITH HISTORY OF NIDDM AND POLYNEUROPATHY. PT CURRENTLY TAKING LYRICA FOR HER POLYNEUROPATHY WITHOUT CHANGE IN HER ITCHING OF HER HANDS AND FEET. PT REPORTS SHE WAS UNABLE TO SLEEP PROMPTING HER ER VISIT THIS AM. PT REPORTS LORAZEPAM HAS HELPED HER IN THE PAST. PT WAS SEEN FOR SIMILAR 4 TIMES THIS YEAR FOR SAME COMPLAINTS. Duration: Chronic, Getting Worse Location: Reports: Generalized Improves with: Reports: None Worsens with: Reports: None Associated Symptoms: Reports: No Other Symptoms Bilateral Hand Pain Score (Numeric/FACES): 10 Bilateral Foot Pain Score (Numeric/FACES): 10 - Related Data Allergies Allergy/AdvReac Type Severity Reaction Status Date / Time doxycycline Allergy Rash Verified 04/05/21 03:00 Home Meds: Home Meds Desoximetasone [Topicort 0.25% Crm] 1 applic TOP BID PRN 02/02/15 [History] Multivitamin with Minerals [Multivitamins with Minerals] 1 tab PO DAILY@1200 02/02/15 [History] Pregabalin [Lyrica] 200 mg PO QAM 02/02/15 [History] Pregabalin [Lyrica] 400 mg PO BEDTIME 02/02/15 [History] Vilazodone [Viibryd] 40 mg PO DAILY@1200 02/02/15 [History] Calcium Carbonate/Vitamin D3 [Calcium 1,000 + D3 Caplet] 1 tab PO DAILY@1200 12/20/17 [History] Dextrose [Glucose] 1 bottle PO ASDIRECTED PRN 12/20/17 [History] Insulin Glarg,Human.Rec.Analog [Lantus] 26 unit SQ BEDTIME 12/20/17 [History] Lactobacillus Acidophilus [Acidophilus Lactobacilli] 2 cap PO BID 12/20/17 [History] Lactulose [Generlac] 120 ml PO BEDTIME 12/20/17 [History] Magnesium Oxide 400 mg PO BEDTIME 12/20/17 [History] Magnesium Oxide 800 mg PO DAILY 12/20/17 [History] Mirabegron [Myrbetriq] 50 mg PO DAILY 12/20/17 [History] Baclofen 10 mg PO TID PRN 07/18/18 [History] Non-Formulary Medication [NF Drug] 1 applic TOP BID PRN 07/18/18 [History] hydrOXYzine pamoate [Hydroxyzine Pamoate] 25 mg PO Q6H PRN 08/10/18 [History] Insulin Aspart [NovoLOG] 5 units SQ TIDMEALS PRN 03/03/19 [History] Raloxifene [Evista] 60 mg PO DAILY 03/03/19 [History] Acetaminophen [8Hr Arthritis Pain] 1,300 mg PO Q8H PRN 11/11/19 [History] Alum Hydroxide/Mag Carbonate [Gaviscon] 15 - 30 ml PO Q4H PRN 11/11/19 [History] Omeprazole 20 mg PO DAILY 11/11/19 [History] busPIRone [Buspar] 10 mg PO TID 11/11/19 [History] metFORMIN HCl [Metformin HCl] 1,000 mg PO BIDMEALS 11/11/19 [History] rOPINIRole [Requip] 1 mg PO BEDTIME 11/11/19 [History] Losartan Potassium 100 mg PO DAILY 12/14/19 [History] hydroCHLOROthiazide [Hydrochlorothiazide] 25 mg PO DAILY 12/14/19 [History] LORazepam [Ativan] 1 mg PO DAILY PRN 09/22/20 [History] Aspirin 325 mg PO DAILY 03/05/21 [History] Diclofenac Sodium [Voltaren Arthritis Pain] 1 applic TOP BID PRN 03/05/21 [History] Famotidine 40 mg PO DAILY PRN 03/05/21 [History] Ferrous Sulfate 325 mg PO DAILY 03/05/21 [History] Folic Acid/B Complex C No.17 [Dexifol Caplet] 1 tab PO DAILY 03/05/21 [History] Meclizine [Antivert] 25 mg PO Q4H PRN 03/05/21 [History] atorvaSTATin [Lipitor] 40 mg PO BEDTIME 03/05/21 [History] buPROPion [Wellbutrin SR] 450 mg PO DAILY 03/05/21 [History] traMADol [Ultram] 50 mg PO BID PRN 03/05/21 [History] Past Medical History HEENT History: Reports: Impaired Vision Cardiovascular History: Reports: High Cholesterol, Hypertension Gastrointestinal History: Reports: Chronic Constipation, GERD, Irritable Bowel Syndrome Genitourinary History: Reports: UTI, Recurrent, Other (See Below) Other Genitourinary History: overactive bladder [employer]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: Musculoskeletal History: Reports: Neck Pain, Chronic Neurological History: Reports: CVA Other Neuro History: mild stroke Psychiatric History: Reports: Anxiety, Depression Endocrine/Metabolic History: Reports: Diabetes, Type I, Obesity/BMI 30+ Dermatologic History: Reports: Other (See Below) Other Dermatologic History: open sore to left foot - Infectious Disease History Infectious Disease History: Reports: Chicken Pox - Past Surgical History Head Surgeries/Procedures: Reports: None HEENT Surgical History: Reports: None Cardiovascular Surgical History: Reports: None Respiratory Surgical History: Reports: None GI Surgical History: Reports: Cholecystectomy, Colonoscopy, EGD Female Surgical History: Reports: None Endocrine Surgical History: Reports: None Neurological Surgical History: Reports: C-Spine Other Neurological Surgeries/Procedures: Multiple surgeries on neck. Musculoskeletal Surgical History: Reports: Carpal Tunnel, Nerve Relocation, Other (See Below) Other Musculoskeletal Surgeries/Procedures:: OR on 08/06/18 to complete amputation of second toe on left foot. Also had right bunion removed. Dermatological Surgical History: Reports: None Social & Family History - Family History Family Medical History: No Pertinent Family History HEENT: Reports: Glaucoma Cardiac: Reports: Bypass, Heart Failure Respiratory: Reports: Other (See Below) Other Respiratory Family Hisory: emphysema - Caffeine Use Caffeine Use: Reports: Soda ED ROS GENERAL - Review of Systems Review Of Systems: See Below Constitutional: Reports: No Symptoms HEENT: Reports: No Symptoms Respiratory: Reports: No Symptoms Cardiovascular: Reports: No Symptoms Endocrine: Reports: No Symptoms GI/Abdominal: Reports: No Symptoms : Reports: No Symptoms Musculoskeletal: Reports: No Symptoms Skin: Reports: Other (ITCHING) Neurological: Reports: No Symptoms ED EXAM, GENERAL - Physical Exam Exam: See Below Exam Limited By: No Limitations General Appearance: Alert, WD/WN, No Apparent Distress Head: Atraumatic, Normocephalic Neck: Normal Inspection, Supple, Non-Tender, Full Range of Motion Respiratory/Chest: No Respiratory Distress, Lungs Clear, Normal Breath Sounds, No Accessory Muscle Use, Chest Non-Tender Cardiovascular: Normal Peripheral Pulses, Regular Rate, Rhythm, No Edema, No Gallop, No JVD, No Murmur, No Rub GI/Abdominal: Normal Bowel Sounds, Soft, Non-Tender, No Organomegaly, No Distention, No Abnormal Bruit, No Mass Back Exam: Normal Inspection, Full Range of Motion, NT Extremities: Normal Inspection, Normal Range of Motion, Non-Tender, Normal Capillary Refill, No Pedal Edema Neurological: Alert, Oriented, CN II-XII Intact, Normal Cognition, Normal Gait, No Motor/Sensory Deficits Psychiatric: Normal Affect, Normal Mood Skin Exam: Warm, Dry, Intact, Normal Color, No Rash Lymphatic: No Adenopathy Course - Vital Signs Last Recorded V/S: Last Vital Signs Temp 96.4 F L 04/05/21 03:11 Pulse 111 H 04/05/21 03:11 Resp 18 04/05/21 03:11 BP 146/104 H 04/05/21 03:11 Pulse Ox 99 04/05/21 03:11 - Orders/Labs/Meds Meds: Medications Discontinued Medications Generic Name Dose Route Start Last Admin Trade Name Esme PRN Reason Stop Dose Admin Lorazepam 1 mg 04/05/21 03:51 Lorazepam 2 Mg/Ml Sdv IM 04/05/21 03:52 ONETIME ONE Departure - Departure Time of Disposition: 03:50 Disposition: Home, Self-Care 01 Condition: Fair Clinical Impression: Polyneuropathy - Discharge Information Instructions: Peripheral Neuropathy Referrals: Charo Escalera BACKEND TESTER [Primary Care Provider] - Forms: ED Department Discharge Additional Instructions: 1. DISCHARGE HOME 2. CONTINUE CURRENT HOME MEDICATIONS 3. FOLLOW UP WITH [facility] FOR FURTHER EVALUATION AND TREATMENT 4. RETURN TO ER IF WORSENING SYMPTOMS Sepsis Event Note (ED) - Evaluation Sepsis Screening Result: No Definite Risk - Focused Exam Vital Signs: Vital Signs Temp Pulse Resp BP Pulse Ox 04/05/21 03:11 96.4 F L 111 H 18 146/104 H 99 - Assessment/Plan Assessment:: 1. POLYNEUROPATHY Plan: 1. DISCHARGE HOME 2. CONTINUE CURRENT HOME MEDICATIONS 3. FOLLOW UP WITH [facility] FOR FURTHER EVALUATION AND TREATMENT 4. RETURN TO ER IF WORSENING SYMPTOMS
[2021-04-05] MEDS: LORazepam 2 MG/ML SDV IM ONE (03:58)
[2021-04-05 06:23] VITALS: BP 160/84; PULSE 102
== END 2021-04-05 04:12 | disposition home or self-care (01) ==
LOC: KA.ED 02:50
DX: E10.42 Type 1 diabetes mellitus with diabetic polyneuropathy (principal); E78.00 Pure hypercholesterolemia, unspecified; I10 Essential (primary) hypertension; E66.9 Obesity, unspecified; Z86.73 Personal history of transient ischemic attack (TIA), and cerebral infarction without residual deficits; Z88.1 Allergy status to other antibiotic agents; Z79.4 Long term (current) use of insulin; Z79.899 Other long term (current) drug therapy; Z68.32 Body mass index [BMI] 32.0-32.9, adult
CPT/HCPCS: 96372; 99283; 99284; J2060

== ENCOUNTER 2021-04-18 13:44 | Observation (INO) | payer MEDICARE, OTHER ==
[2021-04-18] MEDS ORDERED: Sodium Chloride 0.9% 10 ML Syringe FLUSH PRN (13:58)
--- NOTE | 2021-04-18 14:00 | EDM.PDOC ---
ED HPI GENERAL MEDICAL PROBLEM - General Chief Complaint: General Stated Complaint: MENTAL ISSUES/MEDICATION MIX UP Time Seen by Provider: 04/18/21 13:45 Source of Information: Reports: Patient History Limitations: Reports: Altered Mental Status - History of Present Illness INITIAL COMMENTS - FREE TEXT/NARRATIVE: Staff was present at the time of arrival per ambulance to the emergency department. Marilou, 61-year-old female, presents by ambulance to the emergency department with some intermittent issues of confusion precipitated today. She was scheduled to be seen in pain management with Charo Baker and failed her appointment. Charo knowing her, as one who does not miss appointments, contacted her to see what had caused the missed appointment. Marilou seemed confused at that time and did not appropriately converse with her being somewhat teary and emotional. Charo then spoke with her who assists in Marilou's cares and states that he had there may have been a mixup in her medications as he has difficulty with his vision, I believe being legally blind. Charo continued the discussion with Marilou's spouse recommending that they should be seen in the emergency department secondary of the possibility of medication issues as well as the fact that she was experiencing some change in her mentation. The [facility] requested that Charo assist in that process at which time EMS was dispatched. At the time EMS arrived the russian history professor Yulisa states that Marilou seemed for the most part at her baseline and was able to ambulate to the ambulance cot with no difficulty. She demonstrated no deficits other than may be slight memory issues as to the details that had occurred. Yulisa stated that her [facility] was not aware in his recall of why the ambulance was being sent, nor that they had missed an appointment today. When Marilou presented here, she complained of her chronic low back and leg pain with radiculopathy which is noted to be severe. She denied shortness of breath, chest pain, abdominal concerns, change in her chronic bowel nor bladder. She did have a mild complaint of itchy eyes which has been noted to occur in the past. She demonstrated stable vitals, blood sugar of 161 in the ambulance, no deficits on cardiac monitoring, and is presented here able to move from the ambulance cot onto the emergency department bed with minimal assistance. She was able to follow command and showed no physical deficits. Onset: Sudden Duration: Hour(s):, Constant Location: Reports: Head, Back, Pelvis, Lower Extremity, Left, Lower Extremity, Right Quality: Reports: Ache, Pressure, Same as Previous Episode Severity: Moderate Improves with: Reports: None Worsens with: Reports: Medication Context: Reports: Activity Associated Symptoms: Reports: Confusion. Denies: Chest Pain enzo. legs Pain Score (Numeric/FACES): 5 - Related Data Allergies Allergy/AdvReac Type Severity Reaction Status Date / Time doxycycline Allergy Rash Verified 04/18/21 13:58 Home Meds: Home Meds Desoximetasone [Topicort 0.25% Crm] 1 applic TOP BID PRN 02/02/15 [History] Multivitamin with Minerals [Multivitamins with Minerals] 1 tab PO DAILY@1200 02/02/15 [History] Pregabalin [Lyrica] 200 mg PO QAM 02/02/15 [History] Pregabalin [Lyrica] 400 mg PO BEDTIME 02/02/15 [History] Vilazodone [Viibryd] 40 mg PO DAILY@1200 02/02/15 [History] Calcium Carbonate/Vitamin D3 [Calcium 1,000 + D3 Caplet] 1 tab PO DAILY@1200 12/20/17 [History] Dextrose [Glucose] 1 bottle PO ASDIRECTED PRN 12/20/17 [History] Insulin Glarg,Human.Rec.Analog [Lantus] 26 unit SQ BEDTIME 12/20/17 [History] Lactobacillus Acidophilus [Acidophilus Lactobacilli] 2 cap PO BIDMEALS 12/20/17 [History] Lactulose [Generlac] 120 ml PO BEDTIME 12/20/17 [History] Magnesium Oxide 400 mg PO BEDTIME 12/20/17 [History] Magnesium Oxide 800 mg PO QAM 12/20/17 [History] Mirabegron [Myrbetriq] 50 mg PO DAILY 12/20/17 [History] Baclofen 10 mg PO TID PRN 07/18/18 [History] Non-Formulary Medication [NF Drug] 1 applic TOP DAILY PRN 07/18/18 [History] hydrOXYzine pamoate [Hydroxyzine Pamoate] 25 mg PO Q6H PRN 08/10/18 [History] Insulin Aspart [NovoLOG] 5 units SQ TIDMEALS PRN 03/03/19 [History] Raloxifene [Evista] 60 mg PO DAILY 03/03/19 [History] Acetaminophen [8Hr Arthritis Pain] 1,300 mg PO Q8H PRN 11/11/19 [History] Alum Hydroxide/Mag Carbonate [Gaviscon] 15 - 30 ml PO BEDTIME PRN 11/11/19 [History] Omeprazole 20 mg PO QAM 11/11/19 [History] busPIRone [Buspar] 10 mg PO TID 11/11/19 [History] rOPINIRole [Requip] 1 mg PO BEDTIME 11/11/19 [History] Losartan Potassium 100 mg PO DAILY 12/14/19 [History] hydroCHLOROthiazide [Hydrochlorothiazide] 25 mg PO DAILY 12/14/19 [History] LORazepam [Ativan] 1 mg PO DAILY PRN 09/22/20 [History] Aspirin 325 mg PO DAILY 03/05/21 [History] Diclofenac Sodium [Voltaren Arthritis Pain] 1 applic TOP BID PRN 03/05/21 [History] Famotidine 40 mg PO DAILY PRN 03/05/21 [History] Ferrous Sulfate 325 mg PO DAILY 03/05/21 [History] Meclizine [Antivert] 50 mg PO Q4H PRN 03/05/21 [History] atorvaSTATin [Lipitor] 40 mg PO BEDTIME 03/05/21 [History] buPROPion [Wellbutrin SR] 450 mg PO DAILY 03/05/21 [History] polyethylene glycoL 3350 [Clearlax] 6 tsp PO BID 04/05/21 [History] Capsaicin [Zostrix 0.025% Crm] 1 applic TOP QID PRN 04/18/21 [History] Cetirizine [ZyrTEC] 10 mg PO DAILY 04/18/21 [History] LORazepam [Ativan] 1 mg PO DAILY PRN 04/18/21 [History] Lidocaine 4% [LMX 4 Crm] 1 applic TOP BID PRN 04/18/21 [History] Vitamin B Comp W-C/FA/Zinc [Elida B Strong with C & Zinc Tb] 1 tab PO DAILY 04/18/21 [History] metFORMIN [Glucophage XR] 1,000 mg PO BIDMEALS 04/18/21 [History] oxyCODONE 5 mg PO BID PRN 04/18/21 [History] Past Medical History HEENT History: Reports: Impaired Vision Other HEENT History: wears glasses Cardiovascular History: Reports: High Cholesterol, Hypertension Gastrointestinal History: Reports: Chronic Constipation, GERD, GI Bleed, Hiatal Hernia, Irritable Bowel Syndrome Genitourinary History: Reports: UTI, Recurrent, Other (See Below) Other Genitourinary History: overactive bladder 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 monoarthritis of left ankle. pt is on a pain contract per Wilkes chart Neurological History: Reports: CVA, Neuropathy, Diabetic Other Neuro History: mild stroke 2015. polyneuropathy. restless legs Psychiatric History: Reports: Anxiety, Depression Endocrine/Metabolic History: Reports: Diabetes, Type II, Obesity/BMI 30+ Hematologic History: Reports: B12 Deficiency Dermatologic History: Reports: Other (See Below) Other Dermatologic History: open sore to left foot - Infectious Disease History Infectious Disease History: Reports: Chicken Pox, Mononucleosis - Past Surgical History Head Surgeries/Procedures: Reports: None HEENT Surgical History: Reports: None Cardiovascular Surgical History: Reports: None Respiratory Surgical History: Reports: None GI Surgical History: Reports: Cholecystectomy, Colonoscopy, EGD Female Surgical History: Reports: Breast Biopsy Other Female Surgeries/Procedures: breast biopsy right side = benign Endocrine Surgical History: Reports: None Neurological Surgical History: Reports: C-Spine Other Neurological Surgeries/Procedures: Multiple surgeries on neck. Musculoskeletal Surgical History: Reports: Carpal Tunnel, Nerve Relocation, Other (See Below) Other Musculoskeletal Surgeries/Procedures:: OR on 08/06/18 to complete amputation of second toe on left foot, right 5th metatarsal head resection. Also had right bunion removed. 07/22/14: left 3rd toe amputation. 07/12/15: C5-6 corpectomy. 08/11/15: left hallux amputation & debridement. 08/30/15: C4-T2 posterior cervical fusion. 09/17/15: posterior cervical wound washout, wound vac placement. 12/03/16: left 2nd toe amputation. 04/15/19: left foor plantar ulce r debridement, left plantar midfoot soft tissue mass excision. 10/12/19: left foot irrigation & debridement with excision of all non-viable soft tissue & bone Dermatological Surgical History: Reports: None - Past Imaging History Past Imaging History: Reports: CAT Scan, Xray Social & Family History - Family History Family Medical History: No Pertinent Family History HEENT: Reports: Glaucoma Cardiac: Reports: Bypass, Heart Failure Respiratory: Reports: Other (See Below) Other Respiratory Family Hisory: emphysema - Caffeine Use Caffeine Use: Reports: Soda Other Caffeine Use: diet pepsi ED ROS GENERAL - Review of Systems Review Of Systems: Comprehensive ROS is negative, except as noted in HPI. ED EXAM, GENERAL - Physical Exam Exam: See Below Free Text/Narrative:: Alert, able to assist moving from ambulance cart onto the emergency department bed with minimal assistance. She complains of mild itching to her eyes that show no icterus with mild injection/irritation, but she has been rubbing them in the ambulance, lids are somewhat erythematous but non-infected looking. There is no excessive tearing. HEENT is negative to discharge no deformity. There is no cyanosis nor pallor. Neck is soft supple with no lymphadenopathy. She moves all extremities with no deficits or difficulty radial pulses present correlates with apical heart rate. Thorax mildly diminished bases laterally likely due to position and her effort with no wheezes no crackles noted. Cardiac is S1-S2 with no appreciated murmur. Abdomen is soft there is no tenderness bowel sounds are present. She moves the lower extremities with pulse present skin warm and dry sensation is reduced to the feet with no deficits to palpation. Flexion extension is intact. Able to draw her knees up to assist in boosting her on the the bed. Approximately 5 minutes after her arrival she complained again of pruritic eyes which again revealed no change in the injection, but she did start developing a reddened, masklike appearance to the periorbital region and the zygomatic arch cheeks. No discharge no change in sensation was noted. She requested at this time to remove her mask she is felt she had difficult breathing although saturations, respiratory effort, and auscultation did not reveal any deficit. Neurologic examination is fully benign for her cranial nerves, facial movement and speech. She is able to reach out grasp and move the extremities upon command with no deficits. #1 Interpretation EKG Date: 04/18/21 Time: 14:09 Rhythm: NSR Rate (Beats/Min): 87 [place]: Normal P-Wave: Present QRS: Normal ST-T: Normal QT: Normal Comparison: No Change (Compared 01-30-2018) Course - Vital Signs Last Recorded V/S: Last Vital Signs Temp 98.1 F 04/18/21 15:04 Pulse 90 04/18/21 15:46 Resp 15 04/18/21 15:46 BP 121/77 04/18/21 15:46 Pulse Ox 98 04/18/21 15:46 - Orders/Labs/Meds Orders: Active Orders 24 hr Category Date Time Status Patient Status [ADT] Routine ADT 04/18/21 16:37 Active Peripheral IV Care [RC] . DIRECTED Care 04/18/21 13:59 Active CULTURE BLOOD [BC] Stat Lab 04/18/21 14:05 Received CULTURE BLOOD [BC] Stat Lab 04/18/21 14:15 Received CULTURE URINE [RM] Stat Lab 04/18/21 16:52 Ordered Sodium Chloride 0.9% [Saline Flush] Med 04/18/21 13:58 Active 10 ml FLUSH Q8HR PRN Blood Culture x2 Reflex Set [OM.PC] Stat Oth 04/18/21 13:58 Ordered Peripheral IV Insertion Adult [OM.PC] Stat Oth 04/18/21 13:58 Ordered Medication Orders Sodium Chloride (Sodium Chloride 0.9% 10 Ml Syringe) 10 ml FLUSH Q8HR PRN PRN Reason: keep vein open Labs: Laboratory Tests 04/18/21 04/18/21 04/18/21 Range/Units 14:05 14:05 14:05 WBC 6.37 (5.00-10.00) 10^3/uL RBC 4.19 (3.80-5.50) 10^6/uL Hgb 13.1 D (12.0-16.0) g/dL Hct 39.5 (37.0-47.0) % MCV 94.3 H (82.0-92.0) fL MCH 31.3 H (27.0-31.0) pg MCHC 33.2 (32.0-36.0) g/dL RDW 11.8 (11.5-14.5) % Plt Count 261 (150-400) 10^3/uL MPV 9.3 (7.4-10.4) fL Immature Gran % (Auto) 0.2 (0.0-5.0) % Neut % (Auto) 53.6 (50.0-70.0) % Lymph % (Auto) 33.1 (20.0-40.0) % [place] % (Auto) 10.4 H (2.0-8.0) % Eos % (Auto) 2.2 (1.0-3.0) % Baso % (Auto) 0.5 (0.0-1.0) % Neut # (Auto) 3.42 (2.50-7.00) 10^3/uL Lymph # (Auto) 2.11 (1.00-4.00) 10^3/uL [place] # (Auto) 0.66 (0.10-0.80) 10^3/uL Eos # (Auto) 0.14 (0.10-0.30) 10^3/uL Baso # (Auto) 0.03 (0.00-0.10) 10^3/uL Immature Gran # (Auto) 0.01 (0.00-0.50) 10^3/uL D-Dimer, Quantitative (<400) ng/mL Sodium 140 (136-145) mmol/L Potassium 3.8 (3.5-5.1) mmol/L Chloride 100 (98-107) mmol/L Carbon Dioxide 30.3 (21.0-32.0) mmol/L Anion Gap 13.5 (5-15) mmol/L BUN 16 (7-18) mg/dL Creatinine 0.96 (0.51-1.17) mg/dL Est Cr Clr Drug Dosing 53.81 mL/min Estimated GFR (MDRD) 59 mL/min Glucose 162 H (70-140) mg/dL Lactic Acid 0.9 (0.4-2.0) mmol/L Calcium 8.8 (8.7-10.3) mg/dL Total Bilirubin 0.4 (0.2-1.0) mg/dL AST 19 (15-37) U/L ALT 31 (14-63) U/L Alkaline Phosphatase 107 (46-116) U/L Troponin I High Sens 15.200 (0-51.000) pg/mL C-Reactive Protein < 0.4 (0.0-0.9) mg/dL B-Natriuretic Peptide (0-100) pg/mL Total Protein 7.2 (6.4-8.2) g/dL Albumin 3.47 (3.40-5.00) g/dL TSH, Ultra Sensitive (0.340-4.820) uIU/mL Specimen Type Urine Color (YELLOW) Urine Appearance (CLEAR) Urine pH (5.0-9.0) Ur Specific [place] (1.005-1.030) Urine Protein (NEGATIVE) mg/dL Urine Glucose (UA) (NEGATIVE) mg/dL Urine Ketones (NEGATIVE) mg/dL Urine Occult Blood (NEGATIVE) Urine Nitrite (NEGATIVE) Urine Bilirubin (NEGATIVE) Urine Urobilinogen (0.2-1.0) E.U./dL Ur Leukocyte Esterase (NEGATIVE) U Hyaline Cast (Auto) Urine RBC (0-5) /HPF Urine WBC (0-5) /HPF Ur Epithelial Cells /LPF Amorphous Sediment (0/HPF) /HPF Urine Bacteria (NONE TO FEW) /HPF Urine Mucus (NEGATIVE) /LPF Urine Opiates Screen (NEGATIVE) Ur Oxycodone Screen (NEGATIVE) Urine Methadone Screen (NEGATIVE) Ur Propoxyphene Screen (NEGATIVE) Ur Barbiturates Screen (NEGATIVE) Ur Tricyclics Screen (NEGATIVE) Ur Phencyclidine Scrn (NEGATIVE) Ur Amphetamine Screen (NEGATIVE) U Methamphetamines Scrn (NEGATIVE) U Benzodiazepines Scrn (NEGATIVE) U Cocaine Metab Screen (NEGATIVE) U Marijuana (THC) Screen (NEGATIVE) SARS CoV-2 RNA Rapid KATH (NEGATIVE) 04/18/21 04/18/21 04/18/21 Range/Units 14:05 14:05 14:05 WBC (5.00-10.00) 10^3/uL RBC (3.80-5.50) 10^6/uL Hgb (12.0-16.0) g/dL Hct (37.0-47.0) % MCV (82.0-92.0) fL MCH (27.0-31.0) pg MCHC (32.0-36.0) g/dL RDW (11.5-14.5) % Plt Count (150-400) 10^3/uL MPV (7.4-10.4) fL Immature Gran % (Auto) (0.0-5.0) % Neut % (Auto) (50.0-70.0) % Lymph % (Auto) (20.0-40.0) % [place] % (Auto) (2.0-8.0) % Eos % (Auto) (1.0-3.0) % Baso % (Auto) (0.0-1.0) % Neut # (Auto) (2.50-7.00) 10^3/uL Lymph # (Auto) (1.00-4.00) 10^3/uL [place] # (Auto) (0.10-0.80) 10^3/uL Eos # (Auto) (0.10-0.30) 10^3/uL Baso # (Auto) (0.00-0.10) 10^3/uL Immature Gran # (Auto) (0.00-0.50) 10^3/uL D-Dimer, Quantitative 286 (<400) ng/mL Sodium (136-145) mmol/L Potassium (3.5-5.1) mmol/L Chloride (98-107) mmol/L Carbon Dioxide (21.0-32.0) mmol/L Anion Gap (5-15) mmol/L BUN (7-18) mg/dL Creatinine (0.51-1.17) mg/dL Est Cr Clr Drug Dosing mL/min Estimated GFR (MDRD) mL/min Glucose (70-140) mg/dL Lactic Acid (0.4-2.0) mmol/L Calcium (8.7-10.3) mg/dL Total Bilirubin (0.2-1.0) mg/dL AST (15-37) U/L ALT (14-63) U/L Alkaline Phosphatase (46-116) U/L Troponin I High Sens (0-51.000) pg/mL C-Reactive Protein (0.0-0.9) mg/dL B-Natriuretic Peptide 15 (0-100) pg/mL Total Protein (6.4-8.2) g/dL Albumin (3.40-5.00) g/dL TSH, Ultra Sensitive 1.185 (0.340-4.820) uIU/mL Specimen Type Urine Color (YELLOW) Urine Appearance (CLEAR) Urine pH (5.0-9.0) Ur Specific [place] (1.005-1.030) Urine Protein (NEGATIVE) mg/dL Urine Glucose (UA) (NEGATIVE) mg/dL Urine Ketones (NEGATIVE) mg/dL Urine Occult Blood (NEGATIVE) Urine Nitrite (NEGATIVE) Urine Bilirubin (NEGATIVE) Urine Urobilinogen (0.2-1.0) E.U./dL Ur Leukocyte Esterase (NEGATIVE) U Hyaline Cast (Auto) Urine RBC (0-5) /HPF Urine WBC (0-5) /HPF Ur Epithelial Cells /LPF Amorphous Sediment (0/HPF) /HPF Urine Bacteria (NONE TO FEW) /HPF Urine Mucus (NEGATIVE) /LPF Urine Opiates Screen (NEGATIVE) Ur Oxycodone Screen (NEGATIVE) Urine Methadone Screen (NEGATIVE) Ur Propoxyphene Screen (NEGATIVE) Ur Barbiturates Screen (NEGATIVE) Ur Tricyclics Screen (NEGATIVE) Ur Phencyclidine Scrn (NEGATIVE) Ur Amphetamine Screen (NEGATIVE) U Methamphetamines Scrn (NEGATIVE) U Benzodiazepines Scrn (NEGATIVE) U Cocaine Metab Screen (NEGATIVE) U Marijuana (THC) Screen (NEGATIVE) SARS CoV-2 RNA Rapid KATH (NEGATIVE) 04/18/21 04/18/21 04/18/21 Range/Units 14:45 14:45 16:30 WBC (5.00-10.00) 10^3/uL RBC (3.80-5.50) 10^6/uL Hgb (12.0-16.0) g/dL Hct (37.0-47.0) % MCV (82.0-92.0) fL MCH (27.0-31.0) pg MCHC (32.0-36.0) g/dL RDW (11.5-14.5) % Plt Count (150-400) 10^3/uL MPV (7.4-10.4) fL Immature Gran % (Auto) (0.0-5.0) % Neut % (Auto) (50.0-70.0) % Lymph % (Auto) (20.0-40.0) % [place] % (Auto) (2.0-8.0) % Eos % (Auto) (1.0-3.0) % Baso % (Auto) (0.0-1.0) % Neut # (Auto) (2.50-7.00) 10^3/uL Lymph # (Auto) (1.00-4.00) 10^3/uL [place] # (Auto) (0.10-0.80) 10^3/uL Eos # (Auto) (0.10-0.30) 10^3/uL Baso # (Auto) (0.00-0.10) 10^3/uL Immature Gran # (Auto) (0.00-0.50) 10^3/uL D-Dimer, Quantitative (<400) ng/mL Sodium (136-145) mmol/L Potassium (3.5-5.1) mmol/L Chloride (98-107) mmol/L Carbon Dioxide (21.0-32.0) mmol/L Anion Gap (5-15) mmol/L BUN (7-18) mg/dL Creatinine (0.51-1.17) mg/dL Est Cr Clr Drug Dosing mL/min Estimated GFR (MDRD) mL/min Glucose (70-140) mg/dL Lactic Acid (0.4-2.0) mmol/L Calcium (8.7-10.3) mg/dL Total Bilirubin (0.2-1.0) mg/dL AST (15-37) U/L ALT (14-63) U/L Alkaline Phosphatase (46-116) U/L Troponin I High Sens (0-51.000) pg/mL C-Reactive Protein (0.0-0.9) mg/dL B-Natriuretic Peptide (0-100) pg/mL Total Protein (6.4-8.2) g/dL Albumin (3.40-5.00) g/dL TSH, Ultra Sensitive (0.340-4.820) uIU/mL Specimen Type [place] Urine Color Yellow (YELLOW) Urine Appearance Slightly cloudy H (CLEAR) Urine pH 5.0 (5.0-9.0) Ur Specific [place] >= 1.030 (1.005-1.030) Urine Protein 30 H (NEGATIVE) mg/dL Urine Glucose (UA) Negative (NEGATIVE) mg/dL Urine Ketones 15 H (NEGATIVE) mg/dL Urine Occult Blood Trace-lysed H (NEGATIVE) Urine Nitrite Negative (NEGATIVE) Urine Bilirubin Large H (NEGATIVE) Urine Urobilinogen 0.2 (0.2-1.0) E.U./dL Ur Leukocyte Esterase Negative (NEGATIVE) U Hyaline Cast (Auto) Occasional Urine RBC 0-5 (0-5) /HPF Urine WBC 5-10 H (0-5) /HPF Ur Epithelial Cells Few /LPF Amorphous Sediment Few (0/HPF) /HPF Urine Bacteria Few (NONE TO FEW) /HPF Urine Mucus Occasional H (NEGATIVE) /LPF Urine Opiates Screen Negative (NEGATIVE) Ur Oxycodone Screen Positive H (NEGATIVE) Urine Methadone Screen Negative (NEGATIVE) Ur Propoxyphene Screen Negative (NEGATIVE) Ur Barbiturates Screen Negative (NEGATIVE) Ur Tricyclics Screen Negative (NEGATIVE) Ur Phencyclidine Scrn Negative (NEGATIVE) Ur Amphetamine Screen Negative (NEGATIVE) U Methamphetamines Scrn Negative (NEGATIVE) U Benzodiazepines Scrn Positive H (NEGATIVE) U Cocaine Metab Screen Negative (NEGATIVE) U Marijuana (THC) Screen Negative (NEGATIVE) SARS CoV-2 RNA Rapid KATH Negative (NEGATIVE) Meds: Medications Generic Name Dose Route Start Last Admin Trade Name Freq PRN Reason Stop Dose Admin Sodium Chloride 10 ml 04/18/21 13:58 Sodium Chloride 0.9% 10 Ml Syringe FLUSH Q8HR PRN keep vein open Discontinued Medications Generic Name Dose Route Start Last Admin Trade Name Freq PRN Reason Stop Dose Admin Methylprednisolone Sodium Succinate 125 mg 04/18/21 14:08 04/18/21 14:13 Methylprednisolone Sodium Succinate 125 Mg/2 Ml Sdv IVPUSH 04/18/21 14:09 125 mg ONETIME ONE Administration - Re-Assessments/Exams Free Text/Narrative Re-Assessment/Exam: 04/18/21 16:12 Phone contact attempted with Dr. Marsh to discuss admission status secondary of neurological changes versus medication reaction versus allergic reaction. No message is able to be left on her cell phone with no answer. Free Text/Narrative Re-Assessment/Exam: 04/18/21 16:36 Numerous occurrences throughout her stay in the emergency department she became very emotional, crying and hollering out for assistance. She was easily coached to return to appropriate status and cooperative. She repeatedly questions why her blood pressure is so high, each time the blood pressure cuff automatically inflated. She does speak of some issues with ongoing neuropathy and flareup which is well known. She does understand the reason she will be placed in observation status but questions what organ to be able to do to make things different. At this time awaiting Covid status testing for room placement. Departure - Departure Time of Disposition: 16:34 Disposition: Refer to Observation Condition: Fair Clinical Impression: Pruritus, Polyneuropathy Change in mental status Qualifiers: Altered mental status type: disorientation Qualified Code(s): R41.0 - Disorientation, unspecified Peripheral neuropathy Qualifiers: Peripheral neuropathy type: polyneuropathy associated with underlying disease Qualified Code(s): G63 - Polyneuropathy in diseases classified elsewhere - Discharge Information *PRESCRIPTION DRUG MONITORING PROGRAM REVIEWED*: Not Applicable *COPY OF PRESCRIPTION DRUG MONITORING REPORT IN PATIENT NORMA: Not Applicable Referrals: Cosme Marsh MD [Physician] - Forms: ED Department Discharge Additional Instructions: Contact with [place] provider, Dr. Marsh to discuss admission status. Will be placed in observation status. Sepsis Event Note (ED) - Evaluation Sepsis Screening Result: No Definite Risk - Focused Exam Vital Signs: Vital Signs Temp Pulse Resp BP Pulse Ox 04/18/21 15:46 90 15 121/77 98 04/18/21 15:04 98.1 F 91 10 L 137/81 99 04/18/21 14:35 92 12 130/67 99 04/18/21 13:44 98.1 F 85 14 143/87 H 97 ED Communication - ED Communication Date/Time Date: 04/18/21 Time Called: 16:27 - Discussed Case With (1) Discussed Case With (1): Admitting Provider Person/s Notified (1): Cosme Marsh - Problem List & Annotations (1) Change in mental status SNOMED Code(s): 293052937 Code(s): R41.82 - ALTERED MENTAL STATUS, UNSPECIFIED Status: Acute Current Visit: Yes Qualifiers: Altered mental status type: disorientation Qualified Code(s): R41.0 - Disorientation, unspecified (2) Peripheral neuropathy SNOMED Code(s): 925061419 Code(s): G62.9 - POLYNEUROPATHY, UNSPECIFIED Status: Chronic Priority: Medium Current Visit: Yes Qualifiers: Peripheral neuropathy type: polyneuropathy associated with underlying disease Qualified Code(s): G63 - Polyneuropathy in diseases classified elsewhere (3) Polyneuropathy SNOMED Code(s): 93427138 Code(s): G62.9 - POLYNEUROPATHY, UNSPECIFIED Status: Acute Priority: Medium Current Visit: Yes (4) Proteinuria SNOMED Code(s): 95538582 Code(s): R80.9 - PROTEINURIA, UNSPECIFIED Status: Chronic Priority: Medium Current Visit: Yes Qualifiers: Proteinuria type: persistent Qualified Code(s): R80.1 - Persistent proteinuria, unspecified (5) COVID-19 ruled out by laboratory testing SNOMED Code(s): 423896125416225983, 468660265611394735 Code(s): Z20.822 - CONTACT WITH AND (SUSPECTED) EXPOSURE TO COVID-19 Status: Acute Current Visit: Yes - Problem List Review Problem List Initiated/Reviewed/Updated: Yes - My Orders Last 24 Hours: My Active Orders 04/18/21 13:58 Sodium Chloride 0.9% [Saline Flush] 10 ml FLUSH Q8HR PRN Blood Culture x2 Reflex Set [OM.PC] Stat Peripheral IV Insertion Adult [OM.PC] Stat 04/18/21 13:59 Peripheral IV Care [RC] . DIRECTED 04/18/21 14:05 CULTURE BLOOD [BC] Stat 04/18/21 14:15 CULTURE BLOOD [BC] Stat 04/18/21 16:37 Patient Status [ADT] Routine 04/18/21 16:52 CULTURE URINE [RM] Stat - Assessment/Plan Last 24 Hours: My Active Orders 04/18/21 13:58 Sodium Chloride 0.9% [Saline Flush] 10 ml FLUSH Q8HR PRN Blood Culture x2 Reflex Set [OM.PC] Stat Peripheral IV Insertion Adult [OM.PC] Stat 04/18/21 13:59 Peripheral IV Care [RC] . DIRECTED 04/18/21 14:05 CULTURE BLOOD [BC] Stat 04/18/21 14:15 CULTURE BLOOD [BC] Stat 04/18/21 16:37 Patient Status [ADT] Routine 04/18/21 16:52 CULTURE URINE [RM] Stat Plan: Contact with [place] provider, Dr. Marsh to discuss admission status. Will be placed in observation status.
[2021-04-18] MEDS ORDERED: methylPREDNISolone Sodium Succinate 125 MG/2 ML SDV IVPUSH ONE (14:08)
--- NOTE | 2021-04-18 14:18 | CR ---
[id number] RAD/RAD Chest PA or AP 1V EXAM: SINGLE VIEW CHEST. INDICATION: BACK PAIN AND RADICULOPATHY COMPARISON: NO PREVIOUS SIMILAR EXAM IS AVAILABLE FINDINGS: The lungs are clear The cardiomediastinal contour is moderately enlarged There are surgical changes of the cervical spine IMPRESSION: NO ACUTE PROCESS Corey Turner MD 04/18/21 [id number] Thank you for allowing us to participate in the care of your patient.
[2021-04-18 14:42] LABS: ANION GAP 13.5 mmol/L (5-15); CHLORIDE,CL 100 mmol/L (98-107); SODIUM,NA 140 mmol/L (136-145)
[2021-04-18 15:07] LABS: BARBITURATE SCREEN,URINE NEGATIVE (NEGATIVE); BENZODIAZEPINES SCREEN,URINE POSITIVE (NEGATIVE); TCA SCREEN,URINE NEGATIVE (NEGATIVE); THC SCREEN,URINE 50 NG/ML NEGATIVE (NEGATIVE)
--- NOTE | 2021-04-18 15:10 | CT ---
[id number] CT/CT Head WO IV EXAM: CT Head WO IV CLINICAL DATA: CHANGE IN MENTAL STATUS COMPARISON: CORRELATION IS MADE WITH THE EXAM OF JANUARY 30, 2018 FINDINGS: There is no mass or mass effect. There is no hemorrhage or hydrocephalus. There are no extra-axial fluid collections. There are no sites of abnormal attenuation. IMPRESSION: NO PLAIN CT EVIDENCE OF ACUTE INTRACRANIAL PROCESS. Corey Turner MD 04/18/21 [id number] Thank you for allowing us to participate in the care of your patient.
[2021-04-18] MEDS ORDERED: Capsaicin 0.025% Crm 60 GM Tube TOP PRN (18:40)
[2021-04-18] MEDS ORDERED: Meclizine 25 MG Tab PO PRN (18:40)
[2021-04-18] MEDS ORDERED: Diclofenac Sodium 1% Gel 100 GM Tube TOP PRN (18:40)
[2021-04-18] MEDS ORDERED: Acetaminophen 650 MG Tab.ER PO PRN (18:40)
[2021-04-18] MEDS ORDERED: LIDOCAINE 4% TOP PRN (18:40)
[2021-04-18] MEDS ORDERED: hydrOXYzine HCl 25 MG Tab PO PRN (18:40)
[2021-04-18] MEDS ORDERED: Baclofen 10 MG Tab PO PRN (18:40)
[2021-04-18] MEDS ORDERED: Aluminum Hydroxide/Magnesium Hydroxide/Simethicone Susp 30 ML Cup PO PRN (18:40)
[2021-04-18] MEDS ORDERED: Famotidine 20 MG Tab PO PRN (18:40)
[2021-04-18] MEDS ORDERED: Glucagon,Human Recombinant 1 MG Vial IM PRN (18:51)
[2021-04-18] MEDS ORDERED: 50% Dextrose in Water 50 ML Syringe IVPUSH PRN (18:51)
[2021-04-18] MEDS ORDERED: LORazepam 0.5 MG Tab PO ONE (19:47)
[2021-04-18] MEDS ORDERED: oxyCODONE 5 MG Tab PO PRN (19:48)
[2021-04-18] MEDS: busPIRone 10 MG Tab PO SCH (20:02)
[2021-04-18] MEDS ORDERED: Pregabalin 100 MG Cap PO SCH (21:00)
[2021-04-18] MEDS ORDERED: Lactulose Soln 10 GM/15 ML 30 ML UD Cup PO SCH (21:00)
[2021-04-18] MEDS ORDERED: atorvaSTATin 40 MG Tab PO SCH (21:00)
[2021-04-18] MEDS ORDERED: rOPINIRole 1 MG Tab PO SCH (21:00)
[2021-04-19] MEDS ORDERED: Pantoprazole 40 MG Tab.CR PO SCH (07:30)
[2021-04-19] MEDS: busPIRone 10 MG Tab PO SCH (08:17)
[2021-04-19] MEDS: Insulin Aspart 100 Units/ML 3 ML Pen SUBCUT SCH ×2 (08:17→11:56)
[2021-04-19] MEDS ORDERED: MIRABEGRON 50 MG PO SCH (09:00)
[2021-04-19] MEDS ORDERED: Pregabalin 100 MG Cap PO SCH (09:00)
[2021-04-19] MEDS ORDERED: buPROPion 150 MG Tab.ER PO SCH (09:00)
[2021-04-19] MEDS ORDERED: RALOXIFENE 60 MG PO SCH (09:00)
[2021-04-19] MEDS ORDERED: Cetirizine 10 MG Tab PO SCH (09:00)
--- NOTE | 2021-04-19 10:47 | PCM.HP.2 ---
H&P History of Present Illness - General Date of Service: 04/19/21 Admit Problem/Dx: Admission Diagnosis/Problem Admission Diagnosis/Problem Confusion and disorientation enzo. legs Pain Score (Numeric/FACES): 10 - Related Data Allergies/Adverse Reactions: Allergies Allergy/AdvReac Type Severity Reaction Status Date / Time doxycycline Allergy Rash Verified 04/18/21 13:58 Home Medications: Home Meds Desoximetasone [Topicort 0.25% Crm] 1 applic TOP BID PRN 02/02/15 [History] Multivitamin with Minerals [Multivitamins with Minerals] 1 tab PO DAILY@1200 02/02/15 [History] Pregabalin [Lyrica] 200 mg PO QAM 02/02/15 [History] Pregabalin [Lyrica] 400 mg PO BEDTIME 02/02/15 [History] Vilazodone [Viibryd] 40 mg PO DAILY@1200 02/02/15 [History] Calcium Carbonate/Vitamin D3 [Calcium 1,000 + D3 Caplet] 1 tab PO DAILY@1200 12/20/17 [History] Dextrose [Glucose] 1 bottle PO ASDIRECTED PRN 12/20/17 [History] Insulin Glarg,Human.Rec.Analog [Lantus] 26 unit SQ BEDTIME 12/20/17 [History] Lactobacillus Acidophilus [Acidophilus Lactobacilli] 2 cap PO BIDMEALS 12/20/17 [History] Lactulose [Generlac] 120 ml PO BEDTIME 12/20/17 [History] Magnesium Oxide 400 mg PO BEDTIME 12/20/17 [History] Magnesium Oxide 800 mg PO QAM 12/20/17 [History] Mirabegron [Myrbetriq] 50 mg PO DAILY 12/20/17 [History] Baclofen 10 mg PO TID PRN 07/18/18 [History] Non-Formulary Medication [NF Drug] 1 applic TOP DAILY PRN 07/18/18 [History] hydrOXYzine pamoate [Hydroxyzine Pamoate] 25 mg PO Q6H PRN 08/10/18 [History] Insulin Aspart [NovoLOG] 5 units SQ TIDMEALS PRN 03/03/19 [History] Raloxifene [Evista] 60 mg PO DAILY 03/03/19 [History] Acetaminophen [8Hr Arthritis Pain] 1,300 mg PO Q8H PRN 11/11/19 [History] Alum Hydroxide/Mag Carbonate [Gaviscon] 15 - 30 ml PO BEDTIME PRN 11/11/19 [History] Omeprazole 20 mg PO QAM 11/11/19 [History] busPIRone [Buspar] 10 mg PO TID 11/11/19 [History] rOPINIRole [Requip] 1 mg PO BEDTIME 11/11/19 [History] Losartan Potassium 100 mg PO DAILY 12/14/19 [History] hydroCHLOROthiazide [Hydrochlorothiazide] 25 mg PO DAILY 12/14/19 [History] LORazepam [Ativan] 1 mg PO DAILY PRN 09/22/20 [History] Aspirin 325 mg PO DAILY 03/05/21 [History] Diclofenac Sodium [Voltaren Arthritis Pain] 1 applic TOP BID PRN 03/05/21 [History] Famotidine 40 mg PO DAILY PRN 03/05/21 [History] Ferrous Sulfate 325 mg PO DAILY 03/05/21 [History] Meclizine [Antivert] 50 mg PO Q4H PRN 03/05/21 [History] atorvaSTATin [Lipitor] 40 mg PO BEDTIME 03/05/21 [History] polyethylene glycoL 3350 [Clearlax] 6 tsp PO BID 04/05/21 [History] Capsaicin [Zostrix 0.025% Crm] 1 applic TOP QID PRN 04/18/21 [History] Cetirizine [ZyrTEC] 10 mg PO DAILY 04/18/21 [History] LORazepam [Ativan] 1 mg PO DAILY PRN 04/18/21 [History] Lidocaine 4% [LMX 4 Crm] 1 applic TOP BID PRN 04/18/21 [History] Vitamin B Comp W-C/FA/Zinc [Elida B Strong with C & Zinc Tb] 1 tab PO DAILY 04/18/21 [History] buPROPion HCL [Bupropion Xl] 450 mg PO DAILY 04/18/21 [History] metFORMIN [Glucophage XR] 1,000 mg PO BIDMEALS 04/18/21 [History] oxyCODONE 5 mg PO BID PRN 04/18/21 [History] Past Medical History HEENT History: Reports: Impaired Vision Other HEENT History: wears glasses Cardiovascular History: Reports: High Cholesterol, Hypertension Gastrointestinal History: Reports: Chronic Constipation, GERD, GI Bleed, Hiatal Hernia, Irritable Bowel Syndrome Genitourinary History: Reports: UTI, Recurrent, Other (See Below) Other Genitourinary History: overactive bladder [employer]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 monoarthritis of left ankle. pt is on a pain contract per Wilkes chart Neurological History: Reports: CVA, Neuropathy, Diabetic Other Neuro History: mild stroke 2015. polyneuropathy. restless legs Psychiatric History: Reports: Anxiety, Depression, Mood Swings Endocrine/Metabolic History: Reports: Diabetes, Type II, IDDM Hematologic History: Reports: B12 Deficiency Dermatologic History: Reports: Other (See Below) Other Dermatologic History: open sore to left foot - Infectious Disease History Infectious Disease History: Reports: Chicken Pox, Mononucleosis - Past Surgical History Head Surgeries/Procedures: Reports: None HEENT Surgical History: Reports: None Cardiovascular Surgical History: Reports: None Respiratory Surgical History: Reports: None GI Surgical History: Reports: Cholecystectomy, Colonoscopy, EGD Female Surgical History: Reports: Breast Biopsy Other Female Surgeries/Procedures: breast biopsy right side = benign Endocrine Surgical History: Reports: None Neurological Surgical History: Reports: C-Spine Other Neurological Surgeries/Procedures: Multiple surgeries on neck. Musculoskeletal Surgical History: Reports: Carpal Tunnel, Nerve Relocation, Other (See Below) Other Musculoskeletal Surgeries/Procedures:: OR on 08/06/18 to complete amp utation of second toe on left foot, right 5th metatarsal head resection. Also had right bunion removed. 07/22/14: left 3rd toe amputation. 07/12/15: C5-6 corpectomy. 08/11/15: left hallux amputation & debridement. 08/30/15: C4-T2 posterior cervical fusion. 09/17/15: posterior cervical wound washout, wound vac placement. 12/03/16: left 2nd toe amputation. 04/15/19: left foor plantar ulcer debridement, left plantar midfoot soft tissue mass excision. 10/12/19: left foot irrigation & debridement with excision of all non-viable soft tissue & bone Dermatological Surgical History: Reports: None - Past Imaging History Past Imaging History: Reports: CAT Scan, Xray Social & Family History - Family History Family Medical History: No Pertinent Family History HEENT: Reports: Glaucoma Cardiac: Reports: Bypass, Heart Failure Respiratory: Reports: Other (See Below) Other Respiratory Family Hisory: emphysema - Tobacco Use Tobacco Use Status *Q: Never Tobacco User - Caffeine Use Caffeine Use: Reports: Soda Other Caffeine Use: diet pepsi - Recreational Drug Use Recreational Drug Use: No Exam - Vital Signs Vital Signs: Last Vital Signs Temp 98.2 F 04/19/21 05:38 Pulse 92 04/19/21 05:38 Resp 20 04/19/21 05:38 BP 127/82 04/19/21 05:38 Pulse Ox 95 04/19/21 05:38 Weight: 168 lb 12.8 oz - Patient Data Lab Results Last 24 hrs: Laboratory Results - last 24 hr 04/18/21 04/18/21 04/18/21 Range/Units 14:05 14:05 14:05 WBC 6.37 (5.00-10.00) 10^3/uL RBC 4.19 (3.80-5.50) 10^6/uL Hgb 13.1 D (12.0-16.0) g/dL Hct 39.5 (37.0-47.0) % MCV 94.3 H (82.0-92.0) fL MCH 31.3 H (27.0-31.0) pg MCHC 33.2 (32.0-36.0) g/dL RDW 11.8 (11.5-14.5) % Plt Count 261 (150-400) 10^3/uL MPV 9.3 (7.4-10.4) fL Immature Gran % (Auto) 0.2 (0.0-5.0) % Neut % (Auto) 53.6 (50.0-70.0) % Lymph % (Auto) 33.1 (20.0-40.0) % [place] % (Auto) 10.4 H (2.0-8.0) % Eos % (Auto) 2.2 (1.0-3.0) % Baso % (Auto) 0.5 (0.0-1.0) % Neut # (Auto) 3.42 (2.50-7.00) 10^3/uL Lymph # (Auto) 2.11 (1.00-4.00) 10^3/uL [place] # (Auto) 0.66 (0.10-0.80) 10^3/uL Eos # (Auto) 0.14 (0.10-0.30) 10^3/uL Baso # (Auto) 0.03 (0.00-0.10) 10^3/uL Immature Gran # (Auto) 0.01 (0.00-0.50) 10^3/uL D-Dimer, Quantitative (<400) ng/mL Sodium 140 (136-145) mmol/L Potassium 3.8 (3.5-5.1) mmol/L Chloride 100 (98-107) mmol/L Carbon Dioxide 30.3 (21.0-32.0) mmol/L Anion Gap 13.5 (5-15) mmol/L BUN 16 (7-18) mg/dL Creatinine 0.96 (0.51-1.17) mg/dL Est Cr Clr Drug Dosing 53.81 mL/min Estimated GFR (MDRD) 59 mL/min Glucose 162 H (70-140) mg/dL POC Glucose (70-140) mg/dL Lactic Acid 0.9 (0.4-2.0) mmol/L Calcium 8.8 (8.7-10.3) mg/dL Total Bilirubin 0.4 (0.2-1.0) mg/dL AST 19 (15-37) U/L ALT 31 (14-63) U/L Alkaline Phosphatase 107 (46-116) U/L Troponin I High Sens 15.200 (0-51.000) pg/mL C-Reactive Protein < 0.4 (0.0-0.9) mg/dL B-Natriuretic Peptide (0-100) pg/mL Total Protein 7.2 (6.4-8.2) g/dL Albumin 3.47 (3.40-5.00) g/dL TSH, Ultra Sensitive (0.340-4.820) uIU/mL Specimen Type Urine Color (YELLOW) Urine Appearance (CLEAR) Urine pH (5.0-9.0) Ur Specific [place] (1.005-1.030) Urine Protein (NEGATIVE) mg/dL Urine Glucose (UA) (NEGATIVE) mg/dL Urine Ketones (NEGATIVE) mg/dL Urine Occult Blood (NEGATIVE) Urine Nitrite (NEGATIVE) Urine Bilirubin (NEGATIVE) Urine Urobilinogen (0.2-1.0) E.U./dL Ur Leukocyte Esterase (NEGATIVE) U Hyaline Cast (Auto) Urine RBC (0-5) /HPF Urine WBC (0-5) /HPF Ur Epithelial Cells /LPF Amorphous Sediment (0/HPF) /HPF Urine Bacteria (NONE TO FEW) /HPF Urine Mucus (NEGATIVE) /LPF Urine Opiates Screen (NEGATIVE) Ur Oxycodone Screen (NEGATIVE) Urine Methadone Screen (NEGATIVE) Ur Propoxyphene Screen (NEGATIVE) Ur Barbiturates Screen (NEGATIVE) Ur Tricyclics Screen (NEGATIVE) Ur Phencyclidine Scrn (NEGATIVE) Ur Amphetamine Screen (NEGATIVE) U Methamphetamines Scrn (NEGATIVE) U Benzodiazepines Scrn (NEGATIVE) U Cocaine Metab Screen (NEGATIVE) U Marijuana (THC) Screen (NEGATIVE) SARS CoV-2 RNA Rapid KATH (NEGATIVE) 04/18/21 04/18/21 04/18/21 Range/Units 14:05 14:05 14:05 WBC (5.00-10.00) 10^3/uL RBC (3.80-5.50) 10^6/uL Hgb (12.0-16.0) g/dL Hct (37.0-47.0) % MCV (82.0-92.0) fL MCH (27.0-31.0) pg MCHC (32.0-36.0) g/dL RDW (11.5-14.5) % Plt Count (150-400) 10^3/uL MPV (7.4-10.4) fL Immature Gran % (Auto) (0.0-5.0) % Neut % (Auto) (50.0-70.0) % Lymph % (Auto) (20.0-40.0) % [place] % (Auto) (2.0-8.0) % Eos % (Auto) (1.0-3.0) % Baso % (Auto) (0.0-1.0) % Neut # (Auto) (2.50-7.00) 10^3/uL Lymph # (Auto) (1.00-4.00) 10^3/uL [place] # (Auto) (0.10-0.80) 10^3/uL Eos # (Auto) (0.10-0.30) 10^3/uL Baso # (Auto) (0.00-0.10) 10^3/uL Immature Gran # (Auto) (0.00-0.50) 10^3/uL D-Dimer, Quantitative 286 (<400) ng/mL Sodium (136-145) mmol/L Potassium (3.5-5.1) mmol/L Chloride (98-107) mmol/L Carbon Dioxide (21.0-32.0) mmol/L Anion Gap (5-15) mmol/L BUN (7-18) mg/dL Creatinine (0.51-1.17) mg/dL Est Cr Clr Drug Dosing mL/min Estimated GFR (MDRD) mL/min Glucose (70-140) mg/dL POC Glucose (70-140) mg/dL Lactic Acid (0.4-2.0) mmol/L Calcium (8.7-10.3) mg/dL Total Bilirubin (0.2-1.0) mg/dL AST (15-37) U/L ALT (14-63) U/L Alkaline Phosphatase (46-116) U/L Troponin I High Sens (0-51.000) pg/mL C-Reactive Protein (0.0-0.9) mg/dL B-Natriuretic Peptide 15 (0-100) pg/mL Total Protein (6.4-8.2) g/dL Albumin (3.40-5.00) g/dL TSH, Ultra Sensitive 1.185 (0.340-4.820) uIU/mL Specimen Type Urine Color (YELLOW) Urine Appearance (CLEAR) Urine pH (5.0-9.0) Ur Specific [place] (1.005-1.030) Urine Protein (NEGATIVE) mg/dL Urine Glucose (UA) (NEGATIVE) mg/dL Urine Ketones (NEGATIVE) mg/dL Urine Occult Blood (NEGATIVE) Urine Nitrite (NEGATIVE) Urine Bilirubin (NEGATIVE) Urine Urobilinogen (0.2-1.0) E.U./dL Ur Leukocyte Esterase (NEGATIVE) U Hyaline Cast (Auto) Urine RBC (0-5) /HPF Urine WBC (0-5) /HPF Ur Epithelial Cells /LPF Amorphous Sediment (0/HPF) /HPF Urine Bacteria (NONE TO FEW) /HPF Urine Mucus (NEGATIVE) /LPF Urine Opiates Screen (NEGATIVE) Ur Oxycodone Screen (NEGATIVE) Urine Methadone Screen (NEGATIVE) Ur Propoxyphene Screen (NEGATIVE) Ur Barbiturates Screen (NEGATIVE) Ur Tricyclics Screen (NEGATIVE) Ur Phencyclidine Scrn (NEGATIVE) Ur Amphetamine Screen (NEGATIVE) U Methamphetamines Scrn (NEGATIVE) U Benzodiazepines Scrn (NEGATIVE) U Cocaine Metab Screen (NEGATIVE) U Marijuana (THC) Screen (NEGATIVE) SARS CoV-2 RNA Rapid KATH (NEGATIVE) 04/18/21 04/18/21 04/18/21 Range/Units 14:45 14:45 16:30 WBC (5.00-10.00) 10^3/uL RBC (3.80-5.50) 10^6/uL Hgb (12.0-16.0) g/dL Hct (37.0-47.0) % MCV (82.0-92.0) fL MCH (27.0-31.0) pg MCHC (32.0-36.0) g/dL RDW (11.5-14.5) % Plt Count (150-400) 10^3/uL MPV (7.4-10.4) fL Immature Gran % (Auto) (0.0-5.0) % Neut % (Auto) (50.0-70.0) % Lymph % (Auto) (20.0-40.0) % [place] % (Auto) (2.0-8.0) % Eos % (Auto) (1.0-3.0) % Baso % (Auto) (0.0-1.0) % Neut # (Auto) (2.50-7.00) 10^3/uL Lymph # (Auto) (1.00-4.00) 10^3/uL [place] # (Auto) (0.10-0.80) 10^3/uL Eos # (Auto) (0.10-0.30) 10^3/uL Baso # (Auto) (0.00-0.10) 10^3/uL Immature Gran # (Auto) (0.00-0.50) 10^3/uL D-Dimer, Quantitative (<400) ng/mL Sodium (136-145) mmol/L Potassium (3.5-5.1) mmol/L Chloride (98-107) mmol/L Carbon Dioxide (21.0-32.0) mmol/L Anion Gap (5-15) mmol/L BUN (7-18) mg/dL Creatinine (0.51-1.17) mg/dL Est Cr Clr Drug Dosing mL/min Estimated GFR (MDRD) mL/min Glucose (70-140) mg/dL POC Glucose (70-140) mg/dL Lactic Acid (0.4-2.0) mmol/L Calcium (8.7-10.3) mg/dL Total Bilirubin (0.2-1.0) mg/dL AST (15-37) U/L ALT (14-63) U/L Alkaline Phosphatase (46-116) U/L Troponin I High Sens (0-51.000) pg/mL C-Reactive Protein (0.0-0.9) mg/dL B-Natriuretic Peptide (0-100) pg/mL Total Protein (6.4-8.2) g/dL Albumin (3.40-5.00) g/dL TSH, Ultra Sensitive (0.340-4.820) uIU/mL Specimen Type [place] Urine Color Yellow (YELLOW) Urine Appearance Slightly cloudy H (CLEAR) Urine pH 5.0 (5.0-9.0) Ur Specific [place] >= 1.030 (1.005-1.030) Urine Protein 30 H (NEGATIVE) mg/dL Urine Glucose (UA) Negative (NEGATIVE) mg/dL Urine Ketones 15 H (NEGATIVE) mg/dL Urine Occult Blood Trace-lysed H (NEGATIVE) Urine Nitrite Negative (NEGATIVE) Urine Bilirubin Large H (NEGATIVE) Urine Urobilinogen 0.2 (0.2-1.0) E.U./dL Ur Leukocyte Esterase Negative (NEGATIVE) U Hyaline Cast (Auto) Occasional Urine RBC 0-5 (0-5) /HPF Urine WBC 5-10 H (0-5) /HPF Ur Epithelial Cells Few /LPF Amorphous Sediment Few (0/HPF) /HPF Urine Bacteria Few (NONE TO FEW) /HPF Urine Mucus Occasional H (NEGATIVE) /LPF Urine Opiates Screen Negative (NEGATIVE) Ur Oxycodone Screen Positive H (NEGATIVE) Urine Methadone Screen Negative (NEGATIVE) Ur Propoxyphene Screen Negative (NEGATIVE) Ur Barbiturates Screen Negative (NEGATIVE) Ur Tricyclics Screen Negative (NEGATIVE) Ur Phencyclidine Scrn Negative (NEGATIVE) Ur Amphetamine Screen Negative (NEGATIVE) U Methamphetamines Scrn Negative (NEGATIVE) U Benzodiazepines Scrn Positive H (NEGATIVE) U Cocaine Metab Screen Negative (NEGATIVE) U Marijuana (THC) Screen Negative (NEGATIVE) SARS CoV-2 RNA Rapid KATH Negative (NEGATIVE) 04/19/21 Range/Units 07:41 WBC (5.00-10.00) 10^3/uL RBC (3.80-5.50) 10^6/uL Hgb (12.0-16.0) g/dL Hct (37.0-47.0) % MCV (82.0-92.0) fL MCH (27.0-31.0) pg MCHC (32.0-36.0) g/dL RDW (11.5-14.5) % Plt Count (150-400) 10^3/uL MPV (7.4-10.4) fL Immature Gran % (Auto) (0.0-5.0) % Neut % (Auto) (50.0-70.0) % Lymph % (Auto) (20.0-40.0) % [place] % (Auto) (2.0-8.0) % Eos % (Auto) (1.0-3.0) % Baso % (Auto) (0.0-1.0) % Neut # (Auto) (2.50-7.00) 10^3/uL Lymph # (Auto) (1.00-4.00) 10^3/uL [place] # (Auto) (0.10-0.80) 10^3/uL Eos # (Auto) (0.10-0.30) 10^3/uL Baso # (Auto) (0.00-0.10) 10^3/uL Immature Gran # (Auto) (0.00-0.50) 10^3/uL D-Dimer, Quantitative (<400) ng/mL Sodium (136-145) mmol/L Potassium (3.5-5.1) mmol/L Chloride (98-107) mmol/L Carbon Dioxide (21.0-32.0) mmol/L Anion Gap (5-15) mmol/L BUN (7-18) mg/dL Creatinine (0.51-1.17) mg/dL Est Cr Clr Drug Dosing mL/min Estimated GFR (MDRD) mL/min Glucose (70-140) mg/dL POC Glucose 256 H (70-140) mg/dL Lactic Acid (0.4-2.0) mmol/L Calcium (8.7-10.3) mg/dL Total Bilirubin (0.2-1.0) mg/dL AST (15-37) U/L ALT (14-63) U/L Alkaline Phosphatase (46-116) U/L Troponin I High Sens (0-51.000) pg/mL C-Reactive Protein (0.0-0.9) mg/dL B-Natriuretic Peptide (0-100) pg/mL Total Protein (6.4-8.2) g/dL Albumin (3.40-5.00) g/dL TSH, Ultra Sensitive (0.340-4.820) uIU/mL Specimen Type Urine Color (YELLOW) Urine Appearance (CLEAR) Urine pH (5.0-9.0) Ur Specific [place] (1.005-1.030) Urine Protein (NEGATIVE) mg/dL Urine Glucose (UA) (NEGATIVE) mg/dL Urine Ketones (NEGATIVE) mg/dL Urine Occult Blood (NEGATIVE) Urine Nitrite (NEGATIVE) Urine Bilirubin (NEGATIVE) Urine Urobilinogen (0.2-1.0) E.U./dL Ur Leukocyte Esterase (NEGATIVE) U Hyaline Cast (Auto) Urine RBC (0-5) /HPF Urine WBC (0-5) /HPF Ur Epithelial Cells /LPF Amorphous Sediment (0/HPF) /HPF Urine Bacteria (NONE TO FEW) /HPF Urine Mucus (NEGATIVE) /LPF Urine Opiates Screen (NEGATIVE) Ur Oxycodone Screen (NEGATIVE) Urine Methadone Screen (NEGATIVE) Ur Propoxyphene Screen (NEGATIVE) Ur Barbiturates Screen (NEGATIVE) Ur Tricyclics Screen (NEGATIVE) Ur Phencyclidine Scrn (NEGATIVE) Ur Amphetamine Screen (NEGATIVE) U Methamphetamines Scrn (NEGATIVE) U Benzodiazepines Scrn (NEGATIVE) U Cocaine Metab Screen (NEGATIVE) U Marijuana (THC) Screen (NEGATIVE) SARS CoV-2 RNA Rapid KATH (NEGATIVE) Result Diagrams: 04/18/21 14:05 04/18/21 14:05 Sepsis Event Note - Evaluation Sepsis Screening Result: No Definite Risk - Focused Exam Vital Signs: Vital Signs Temp Pulse Resp BP Pulse Ox 04/19/21 05:38 98.2 F 92 20 127/82 95 04/18/21 23:00 97.3 F 100 22 H 105/76 96 Problem List Initiated/Reviewed/Updated: Yes Orders Last 24hrs: Active Orders 24 hr Category Date Time Status Patient Status [ADT] Routine ADT 04/18/21 16:37 Active Blood Glucose Check, Bedside [] TIDMEALS Care 04/18/21 18:51 Active Peripheral IV Care [] Care 04/18/21 13:59 Active Regular Diet [DIET] Diet 04/19/21 Breakfast Active CULTURE BLOOD [BC] Stat Lab 04/18/21 14:05 Received CULTURE BLOOD [BC] Stat Lab 04/18/21 14:15 Received CULTURE URINE [RM] Stat Lab 04/18/21 16:52 Ordered Acetaminophen [Tylenol Arthritis Pain] Med 04/18/21 18:40 Active 1,300 mg PO Q8H PRN Alum Hydrox/Mag Hydrox/Simeth [Mag-Al Plus] Med 04/18/21 18:40 Active 15 - 30 ml PO BEDTIME PRN Baclofen [Lioresal] Med 04/18/21 18:40 Active 10 mg PO TID PRN Capsaicin [Zostrix 0.025% Crm] Med 04/18/21 18:40 Active 0 gm TOP QID PRN Cetirizine [ZyrTEC] Med 04/19/21 09:00 Active 10 mg PO DAILY Dextrose 50% in Water Med 04/18/21 18:51 Active 50 ml IVPUSH ASDIRECTED PRN Diclofenac Sodium [Voltaren 1% Gel] Med 04/18/21 18:40 Active 0 gm TOP BID PRN Famotidine [Pepcid] Med 04/18/21 18:40 Active 40 mg PO DAILY PRN Glucagon,Human Recombinant [GlucaGen] Med 04/18/21 18:51 Active 1 mg IM ASDIRECTED PRN Insulin Aspart [NovoLOG] Med 04/19/21 08:00 Active See Protocol SUBCUT TIDMEALS Lactulose [Cephulac] Med 04/18/21 21:00 Active 80 gm PO BEDTIME Lidocaine 4% [LMX 4] Med 04/18/21 18:40 Pending 1 applic TOP BID PRN Meclizine [Antivert] Med 04/18/21 18:40 Active 50 mg PO Q4H PRN Mirabegron [Myrbetriq] Med 04/19/21 09:00 Pending 50 mg PO DAILY Pantoprazole [ProTONIX] Med 04/19/21 07:30 Active 40 mg PO ACBREAKFAST Pregabalin [Lyrica] Med 04/19/21 09:00 Active 200 mg PO QAM Pregabalin [Lyrica] Med 04/18/21 21:00 Active 400 mg PO BEDTIME Raloxifene Med 04/19/21 09:00 Pending 60 mg PO DAILY Sodium Chloride 0.9% [Saline Flush] Med 04/18/21 13:58 Active 10 ml FLUSH Q8HR PRN Vilazodone [Viibryd] Med 04/19/21 12:00 Pending 40 mg PO DAILY@1200 atorvaSTATin [Lipitor] Med 04/18/21 21:00 Active 40 mg PO BEDTIME buPROPion [Wellbutrin XL] Med 04/19/21 09:00 Active 450 mg PO DAILY busPIRone [Buspar] Med 04/18/21 21:00 Active 10 mg PO TID hydrOXYzine HCL [Atarax] Med 04/18/21 18:40 Active 25 mg PO Q6H PRN oxyCODONE Med 04/18/21 19:48 Active 5 mg PO Q6H PRN rOPINIRole [Requip] Med 04/18/21 21:00 Active 1 mg PO BEDTIME Blood Culture x2 Reflex Set [OM.PC] Stat Oth 04/18/21 13:58 Ordered Peripheral IV Insertion Adult [OM.PC] Stat Oth 04/18/21 13:58 Ordered Medication Orders Acetaminophen (Acetaminophen 650 Mg Tab.Er) 1,300 mg PO Q8H PRN PRN Reason: Pain Last Admin: 04/18/21 21:59 Dose: 1,300 mg Documented by: CALESIL Al Hydroxide/Mg Hydroxide (Aluminum Hydroxide/Magnesium Hydroxide/Simethicone Susp 30 Ml Cup) 15 - 30 ml PO BEDTIME PRN PRN Reason: Heartburn Atorvastatin Calcium (Atorvastatin 40 Mg Tab) 40 mg PO BEDTIME KIMMIE Last Admin: 04/18/21 20:02 Dose: 40 mg Documented by: ADALBERTOESIL Baclofen (Baclofen 10 Mg Tab) 10 mg PO TID PRN PRN Reason: neck pain Bupropion HCl (Bupropion 150 Mg Tab.Er) 450 mg PO DAILY [facility] Last Admin: 04/19/21 08:16 Dose: 450 mg Documented by: VENUS Buspirone HCl (Buspirone 10 Mg Tab) 10 mg PO TID [facility] Last Admin: 04/19/21 08:17 Dose: 10 mg Documented by: Admin: 04/18/21 20:02 Dose: 10 mg Documented by: VENECIA Capsaicin (Capsaicin 0.025% Crm 60 Gm Tube) 0 gm TOP QID PRN PRN Reason: Pain (moderate 4-6) Cetirizine HCl (Cetirizine 10 Mg Tab) 10 mg PO DAILY [facility] Last Admin: 04/19/21 08:16 Dose: 10 mg Documented by: VENUS Dextrose/Water (50% Dextrose In Water 50 Ml Syringe) 50 ml IVPUSH ASDIRECTED PRN PRN Reason: Hypoglycemia Diclofenac Sodium (Diclofenac Sodium 1% Gel 100 Gm Tube) 0 gm TOP BID PRN PRN Reason: Pain Famotidine (Famotidine 20 Mg Tab) 40 mg PO DAILY PRN PRN Reason: ACID Glucagon (Glucagon,Human Recombinant 1 Mg Vial) 1 mg IM ASDIRECTED PRN PRN Reason: Hypoglycemia Hydroxyzine HCl (Hydroxyzine Hcl 25 Mg Tab) 25 mg PO Q6H PRN PRN Reason: Anxiety Insulin Aspart (Insulin Aspart 100 Units/Ml 3 Ml Pen) 0 unit SUBCUT TIDMEALS [facility]; Protocol Last Admin: 04/19/21 08:17 Dose: 6 unit Documented by: VENUS Lactulose (Lactulose Soln 10 Gm/15 Ml 30 Ml Ud Cup) 80 gm PO BEDTIME [facility] Last Admin: 04/18/21 21:59 Dose: 80 gm Documented by: VENECIA Meclizine HCl (Meclizine 25 Mg Tab) 50 mg PO Q4H PRN PRN Reason: Dizziness Non-Formulary Medication (Lidocaine 4% [Lmx 4]) 1 applic TOP BID PRN PRN Reason: Itching Non-Formulary Medication (Mirabegron [Myrbetriq]) 50 mg PO DAILY [facility] Non-Formulary Medication (Raloxifene) 60 mg PO DAILY [facility] Non-Formulary Medication (Vilazodone [Viibryd]) 40 mg PO DAILY@1200 [facility] Oxycodone HCl (Oxycodone 5 Mg Tab) 5 mg PO Q6H PRN PRN Reason: Pain (severe 7-10) Last Admin: 04/18/21 20:00 Dose: 5 mg Documented by: VENECIA Pantoprazole Sodium (Pantoprazole 40 Mg Tab.Cr) 40 mg PO ACBREAKFAST [facility] Last Admin: 04/19/21 06:39 Dose: 40 mg Documented by: VENEICA Pregabalin (Pregabalin 100 Mg Cap) 400 mg PO BEDTIME [facility] Last Admin: 04/18/21 20:02 Dose: 400 mg Documented by: VENECIA Pregabalin (Pregabalin 100 Mg Cap) 200 mg PO QAM [facility] Last Admin: 04/19/21 08:16 Dose: 200 mg Documented by: VENUS Ropinirole HCl (Ropinirole 1 Mg Tab) 1 mg PO BEDTIME [facility] Last Admin: 04/18/21 20:03 Dose: 1 mg Documented by: VENECIA Sodium Chloride (Sodium Chloride 0.9% 10 Ml Syringe) 10 ml FLUSH Q8HR PRN PRN Reason: keep vein open Last Admin: 04/18/21 20:04 Dose: 10 ml Documented by: VENECIA Assessment/Plan Comment:: HPI summary: ED course: Hospital course: Hospitalization problems and plan: # Chronic, stable conditions: # Hospitalization details: # FEN: # PPX: # Code status: # Emergency contact: # Disposition:
--- NOTE | 2021-04-19 10:52 | PCM.DCSUM1 ---
Discharge Summary - Hospital Course Free Text/Narrative:: Date of admission: Date of discharge: Admission diagnoses: Discharge diagnoses: Hospital course: Discharge and follow-up recommendations: - Discharge to - New medications at discharge: - Follow-up - Discharge Data Discharge Date: 04/19/21 Discharge Disposition: Home, Self-Care 01 Condition: Good - Referral to Home Health Primary Care Physician: Cosme Marsh MD - Patient Instructions Diet: Usual Diet as Tolerated Activity: As Tolerated Driving: Do Not Drive Showering/Bathing: May Shower - Discharge Plan *PRESCRIPTION DRUG MONITORING PROGRAM REVIEWED*: Not Applicable *COPY OF PRESCRIPTION DRUG MONITORING REPORT IN PATIENT NORMA: Not Applicable Home Medications: Home Meds Desoximetasone [Topicort 0.25% Crm] 1 applic TOP BID PRN 02/02/15 [History] Multivitamin with Minerals [Multivitamins with Minerals] 1 tab PO DAILY@1200 02/02/15 [History] Pregabalin [Lyrica] 200 mg PO QAM 02/02/15 [History] Pregabalin [Lyrica] 400 mg PO BEDTIME 02/02/15 [History] Vilazodone [Viibryd] 40 mg PO DAILY@1200 02/02/15 [History] Calcium Carbonate/Vitamin D3 [Calcium 1,000 + D3 Caplet] 1 tab PO DAILY@1200 12/20/17 [History] Dextrose [Glucose] 1 bottle PO ASDIRECTED PRN 12/20/17 [History] Insulin Glarg,Human.Rec.Analog [Lantus] 26 unit SQ BEDTIME 12/20/17 [History] Lactobacillus Acidophilus [Acidophilus Lactobacilli] 2 cap PO BIDMEALS 12/20/17 [History] Lactulose [Generlac] 120 ml PO BEDTIME 12/20/17 [History] Magnesium Oxide 400 mg PO BEDTIME 12/20/17 [History] Magnesium Oxide 800 mg PO QAM 12/20/17 [History] Mirabegron [Myrbetriq] 50 mg PO DAILY 12/20/17 [History] Baclofen 10 mg PO TID PRN 07/18/18 [History] Non-Formulary Medication [NF Drug] 1 applic TOP DAILY PRN 07/18/18 [History] hydrOXYzine pamoate [Hydroxyzine Pamoate] 25 mg PO Q6H PRN 08/10/18 [History] Insulin Aspart [NovoLOG] 5 units SQ TIDMEALS PRN 03/03/19 [History] Raloxifene [Evista] 60 mg PO DAILY 03/03/19 [History] Acetaminophen [8Hr Arthritis Pain] 1,300 mg PO Q8H PRN 11/11/19 [History] Alum Hydroxide/Mag Carbonate [Gaviscon] 15 - 30 ml PO BEDTIME PRN 11/11/19 [History] Omeprazole 20 mg PO QAM 11/11/19 [History] busPIRone [Buspar] 10 mg PO TID 11/11/19 [History] rOPINIRole [Requip] 1 mg PO BEDTIME 11/11/19 [History] Losartan Potassium 100 mg PO DAILY 12/14/19 [History] hydroCHLOROthiazide [Hydrochlorothiazide] 25 mg PO DAILY 12/14/19 [History] LORazepam [Ativan] 1 mg PO DAILY PRN 09/22/20 [History] Aspirin 325 mg PO DAILY 03/05/21 [History] Diclofenac Sodium [Voltaren Arthritis Pain] 1 applic TOP BID PRN 03/05/21 [His tory] Famotidine 40 mg PO DAILY PRN 03/05/21 [History] Ferrous Sulfate 325 mg PO DAILY 03/05/21 [History] Meclizine [Antivert] 50 mg PO Q4H PRN 03/05/21 [History] atorvaSTATin [Lipitor] 40 mg PO BEDTIME 03/05/21 [History] polyethylene glycoL 3350 [Clearlax] 6 tsp PO BID 04/05/21 [History] Capsaicin [Zostrix 0.025% Crm] 1 applic TOP QID PRN 04/18/21 [History] Cetirizine [ZyrTEC] 10 mg PO DAILY 04/18/21 [History] LORazepam [Ativan] 1 mg PO DAILY PRN 04/18/21 [History] Lidocaine 4% [LMX 4] 1 applic TOP BID PRN 04/18/21 [History] Vitamin B Comp W-C/FA/Zinc [Elida B Strong with C & Zinc Tb] 1 tab PO DAILY 04/18/21 [History] buPROPion HCL [Bupropion Xl] 450 mg PO DAILY 04/18/21 [History] metFORMIN [Glucophage XR] 1,000 mg PO BIDMEALS 04/18/21 [History] oxyCODONE 5 mg PO BID PRN 04/18/21 [History] Oxygen Therapy Mode: Room Air Referrals: Charo Escalera [employer]ER [Nurse Practitioner] - 04/25/21 2:30 pm - Discharge Summary/Plan Comment DC Time >30 min.: Yes Total # of Minutes for Discharge Time: 35 - General Info Date of Service: 04/19/21 Subjective Update: Patient reports feeling kind of tired, otherwise better today. Her legs were painful and burning last night, improved with oxy and ativan. Functional Status: Reports: Pain Controlled, Tolerating Diet, Ambulating, Urinating. Denies: New Symptoms - Review of Systems General: Reports: Weakness (at baseline) HEENT: Reports: Headaches (chronic) Pulmonary: Reports: No Symptoms Cardiovascular: Reports: No Symptoms Gastrointestinal: Reports: Diarrhea (chronic - IBS) Genitourinary: Reports: No Symptoms Musculoskeletal: Reports: Back Pain (chronic), Leg Pain (chronic, bilateral) Neurological: Reports: Headache (chronic headaches), Numbness (neuropathy to legs), Pre-Existing Deficit, Tingling (neuropathy to legs). Denies: Confusion, Dizziness (denies today, was dizzy yesterday per patient), Change in Speech Psychiatric: Reports: No Symptoms. Denies: Confusion - Patient Data Vitals - Most Recent: Last Vital Signs Temp 98.2 F 04/19/21 05:38 Pulse 92 04/19/21 05:38 Resp 20 04/19/21 05:38 BP 127/82 04/19/21 05:38 Pulse Ox 95 04/19/21 05:38 Weight - Most Recent: 168 lb 12.8 oz I&O - Last 24 hours: Intake & Output 04/18/21 04/19/21 04/19/21 22:59 06:59 14:59 Intake Total 500 Balance 500 Lab Results - Last 24 hrs: Laboratory Results - last 24 hr 04/18/21 04/18/21 04/18/21 Range/Units 14:05 14:05 14:05 WBC 6.37 (5.00-10.00) 10^3/uL RBC 4.19 (3.80-5.50) 10^6/uL Hgb 13.1 D (12.0-16.0) g/dL Hct 39.5 (37.0-47.0) % MCV 94.3 H (82.0-92.0) fL MCH 31.3 H (27.0-31.0) pg MCHC 33.2 (32.0-36.0) g/dL RDW 11.8 (11.5-14.5) % Plt Count 261 (150-400) 10^3/uL MPV 9.3 (7.4-10.4) fL Immature Gran % (Auto) 0.2 (0.0-5.0) % Neut % (Auto) 53.6 (50.0-70.0) % Lymph % (Auto) 33.1 (20.0-40.0) % [place] % (Auto) 10.4 H (2.0-8.0) % Eos % (Auto) 2.2 (1.0-3.0) % Baso % (Auto) 0.5 (0.0-1.0) % Neut # (Auto) 3.42 (2.50-7.00) 10^3/uL Lymph # (Auto) 2.11 (1.00-4.00) 10^3/uL [place] # (Auto) 0.66 (0.10-0.80) 10^3/uL Eos # (Auto) 0.14 (0.10-0.30) 10^3/uL Baso # (Auto) 0.03 (0.00-0.10) 10^3/uL Immature Gran # (Auto) 0.01 (0.00-0.50) 10^3/uL D-Dimer, Quantitative (<400) ng/mL Sodium 140 (136-145) mmol/L Potassium 3.8 (3.5-5.1) mmol/L Chloride 100 (98-107) mmol/L Carbon Dioxide 30.3 (21.0-32.0) mmol/L Anion Gap 13.5 (5-15) mmol/L BUN 16 (7-18) mg/dL Creatinine 0.96 (0.51-1.17) mg/dL Est Cr Clr Drug Dosing 53.81 mL/min Estimated GFR (MDRD) 59 mL/min Glucose 162 H (70-140) mg/dL POC Glucose (70-140) mg/dL Lactic Acid 0.9 (0.4-2.0) mmol/L Calcium 8.8 (8.7-10.3) mg/dL Total Bilirubin 0.4 (0.2-1.0) mg/dL AST 19 (15-37) U/L ALT 31 (14-63) U/L Alkaline Phosphatase 107 (46-116) U/L Troponin I High Sens 15.200 (0-51.000) pg/mL C-Reactive Protein < 0.4 (0.0-0.9) mg/dL B-Natriuretic Peptide (0-100) pg/mL Total Protein 7.2 (6.4-8.2) g/dL Albumin 3.47 (3.40-5.00) g/dL TSH, Ultra Sensitive (0.340-4.820) uIU/mL Specimen Type Urine Color (YELLOW) Urine Appearance (CLEAR) Urine pH (5.0-9.0) Ur Specific [place] (1.005-1.030) Urine Protein (NEGATIVE) mg/dL Urine Glucose (UA) (NEGATIVE) mg/dL Urine Ketones (NEGATIVE) mg/dL Urine Occult Blood (NEGATIVE) Urine Nitrite (NEGATIVE) Urine Bilirubin (NEGATIVE) Urine Urobilinogen (0.2-1.0) E.U./dL Ur Leukocyte Esterase (NEGATIVE) U Hyaline Cast (Auto) Urine RBC (0-5) /HPF Urine WBC (0-5) /HPF Ur Epithelial Cells /LPF Amorphous Sediment (0/HPF) /HPF Urine Bacteria (NONE TO FEW) /HPF Urine Mucus (NEGATIVE) /LPF Urine Opiates Screen (NEGATIVE) Ur Oxycodone Screen (NEGATIVE) Urine Methadone Screen (NEGATIVE) Ur Propoxyphene Screen (NEGATIVE) Ur Barbiturates Screen (NEGATIVE) Ur Tricyclics Screen (NEGATIVE) Ur Phencyclidine Scrn (NEGATIVE) Ur Amphetamine Screen (NEGATIVE) U Methamphetamines Scrn (NEGATIVE) U Benzodiazepines Scrn (NEGATIVE) U Cocaine Metab Screen (NEGATIVE) U Marijuana (THC) Screen (NEGATIVE) SARS CoV-2 RNA Rapid KATH (NEGATIVE) 04/18/21 04/18/21 04/18/21 Range/Units 14:05 14:05 14:05 WBC (5.00-10.00) 10^3/uL RBC (3.80-5.50) 10^6/uL Hgb (12.0-16.0) g/dL Hct (37.0-47.0) % MCV (82.0-92.0) fL MCH (27.0-31.0) pg MCHC (32.0-36.0) g/dL RDW (11.5-14.5) % Plt Count (150-400) 10^3/uL MPV (7.4-10.4) fL Immature Gran % (Auto) (0.0-5.0) % Neut % (Auto) (50.0-70.0) % Lymph % (Auto) (20.0-40.0) % [place] % (Auto) (2.0-8.0) % Eos % (Auto) (1.0-3.0) % Baso % (Auto) (0.0-1.0) % Neut # (Auto) (2.50-7.00) 10^3/uL Lymph # (Auto) (1.00-4.00) 10^3/uL [place] # (Auto) (0.10-0.80) 10^3/uL Eos # (Auto) (0.10-0.30) 10^3/uL Baso # (Auto) (0.00-0.10) 10^3/uL Immature Gran # (Auto) (0.00-0.50) 10^3/uL D-Dimer, Quantitative 286 (<400) ng/mL Sodium (136-145) mmol/L Potassium (3.5-5.1) mmol/L Chloride (98-107) mmol/L Carbon Dioxide (21.0-32.0) mmol/L Anion Gap (5-15) mmol/L BUN (7-18) mg/dL Creatinine (0.51-1.17) mg/dL Est Cr Clr Drug Dosing mL/min Estimated GFR (MDRD) mL/min Glucose (70-140) mg/dL POC Glucose (70-140) mg/dL Lactic Acid (0.4-2.0) mmol/L Calcium (8.7-10.3) mg/dL Total Bilirubin (0.2-1.0) mg/dL AST (15-37) U/L ALT (14-63) U/L Alkaline Phosphatase (46-116) U/L Troponin I High Sens (0-51.000) pg/mL C-Reactive Protein (0.0-0.9) mg/dL B-Natriuretic Peptide 15 (0-100) pg/mL Total Protein (6.4-8.2) g/dL Albumin (3.40-5.00) g/dL TSH, Ultra Sensitive 1.185 (0.340-4.820) uIU/mL Specimen Type Urine Color (YELLOW) Urine Appearance (CLEAR) Urine pH (5.0-9.0) Ur Specific [place] (1.005-1.030) Urine Protein (NEGATIVE) mg/dL Urine Glucose (UA) (NEGATIVE) mg/dL Urine Ketones (NEGATIVE) mg/dL Urine Occult Blood (NEGATIVE) Urine Nitrite (NEGATIVE) Urine Bilirubin (NEGATIVE) Urine Urobilinogen (0.2-1.0) E.U./dL Ur Leukocyte Esterase (NEGATIVE) U Hyaline Cast (Auto) Urine RBC (0-5) /HPF Urine WBC (0-5) /HPF Ur Epithelial Cells /LPF Amorphous Sediment (0/HPF) /HPF Urine Bacteria (NONE TO FEW) /HPF Urine Mucus (NEGATIVE) /LPF Urine Opiates Screen (NEGATIVE) Ur Oxycodone Screen (NEGATIVE) Urine Methadone Screen (NEGATIVE) Ur Propoxyphene Screen (NEGATIVE) Ur Barbiturates Screen (NEGATIVE) Ur Tricyclics Screen (NEGATIVE) Ur Phencyclidine Scrn (NEGATIVE) Ur Amphetamine Screen (NEGATIVE) U Methamphetamines Scrn (NEGATIVE) U Benzodiazepines Scrn (NEGATIVE) U Cocaine Metab Screen (NEGATIVE) U Marijuana (THC) Screen (NEGATIVE) SARS CoV-2 RNA Rapid KATH (NEGATIVE) 04/18/21 04/18/21 04/18/21 Range/Units 14:45 14:45 16:30 WBC (5.00-10.00) 10^3/uL RBC (3.80-5.50) 10^6/uL Hgb (12.0-16.0) g/dL Hct (37.0-47.0) % MCV (82.0-92.0) fL MCH (27.0-31.0) pg MCHC (32.0-36.0) g/dL RDW (11.5-14.5) % Plt Count (150-400) 10^3/uL MPV (7.4-10.4) fL Immature Gran % (Auto) (0.0-5.0) % Neut % (Auto) (50.0-70.0) % Lymph % (Auto) (20.0-40.0) % [place] % (Auto) (2.0-8.0) % Eos % (Auto) (1.0-3.0) % Baso % (Auto) (0.0-1.0) % Neut # (Auto) (2.50-7.00) 10^3/uL Lymph # (Auto) (1.00-4.00) 10^3/uL [place] # (Auto) (0.10-0.80) 10^3/uL Eos # (Auto) (0.10-0.30) 10^3/uL Baso # (Auto) (0.00-0.10) 10^3/uL Immature Gran # (Auto) (0.00-0.50) 10^3/uL D-Dimer, Quantitative (<400) ng/mL Sodium (136-145) mmol/L Potassium (3.5-5.1) mmol/L Chloride (98-107) mmol/L Carbon Dioxide (21.0-32.0) mmol/L Anion Gap (5-15) mmol/L BUN (7-18) mg/dL Creatinine (0.51-1.17) mg/dL Est Cr Clr Drug Dosing mL/min Estimated GFR (MDRD) mL/min Glucose (70-140) mg/dL POC Glucose (70-140) mg/dL Lactic Acid (0.4-2.0) mmol/L Calcium (8.7-10.3) mg/dL Total Bilirubin (0.2-1.0) mg/dL AST (15-37) U/L ALT (14-63) U/L Alkaline Phosphatase (46-116) U/L Troponin I High Sens (0-51.000) pg/mL C-Reactive Protein (0.0-0.9) mg/dL B-Natriuretic Peptide (0-100) pg/mL Total Protein (6.4-8.2) g/dL Albumin (3.40-5.00) g/dL TSH, Ultra Sensitive (0.340-4.820) uIU/mL Specimen Type Urincath Urine Color Yellow (YELLOW) Urine Appearance Slightly cloudy H (CLEAR) Urine pH 5.0 (5.0-9.0) Ur Specific [place] >= 1.030 (1.005-1.030) Urine Protein 30 H (NEGATIVE) mg/dL Urine Glucose (UA) Negative (NEGATIVE) mg/dL Urine Ketones 15 H (NEGATIVE) mg/dL Urine Occult Blood Trace-lysed H (NEGATIVE) Urine Nitrite Negative (NEGATIVE) Urine Bilirubin Large H (NEGATIVE) Urine Urobilinogen 0.2 (0.2-1.0) E.U./dL Ur Leukocyte Esterase Negative (NEGATIVE) U Hyaline Cast (Auto) Occasional Urine RBC 0-5 (0-5) /HPF Urine WBC 5-10 H (0-5) /HPF Ur Epithelial Cells Few /LPF Amorphous Sediment Few (0/HPF) /HPF Urine Bacteria Few (NONE TO FEW) /HPF Urine Mucus Occasional H (NEGATIVE) /LPF Urine Opiates Screen Negative (NEGATIVE) Ur Oxycodone Screen Positive H (NEGATIVE) Urine Methadone Screen Negative (NEGATIVE) Ur Propoxyphene Screen Negative (NEGATIVE) Ur Barbiturates Screen Negative (NEGATIVE) Ur Tricyclics Screen Negative (NEGATIVE) Ur Phencyclidine Scrn Negative (NEGATIVE) Ur Amphetamine Screen Negative (NEGATIVE) U Methamphetamines Scrn Negative (NEGATIVE) U Benzodiazepines Scrn Positive H (NEGATIVE) U Cocaine Metab Screen Negative (NEGATIVE) U Marijuana (THC) Screen Negative (NEGATIVE) SARS CoV-2 RNA Rapid KATH Negative (NEGATIVE) 04/19/21 Range/Units 07:41 WBC (5.00-10.00) 10^3/uL RBC (3.80-5.50) 10^6/uL Hgb (12.0-16.0) g/dL Hct (37.0-47.0) % MCV (82.0-92.0) fL MCH (27.0-31.0) pg MCHC (32.0-36.0) g/dL RDW (11.5-14.5) % Plt Count (150-400) 10^3/uL MPV (7.4-10.4) fL Immature Gran % (Auto) (0.0-5.0) % Neut % (Auto) (50.0-70.0) % Lymph % (Auto) (20.0-40.0) % [place] % (Auto) (2.0-8.0) % Eos % (Auto) (1.0-3.0) % Baso % (Auto) (0.0-1.0) % Neut # (Auto) (2.50-7.00) 10^3/uL Lymph # (Auto) (1.00-4.00) 10^3/uL [place] # (Auto) (0.10-0.80) 10^3/uL Eos # (Auto) (0.10-0.30) 10^3/uL Baso # (Auto) (0.00-0.10) 10^3/uL Immature Gran # (Auto) (0.00-0.50) 10^3/uL D-Dimer, Quantitative (<400) ng/mL Sodium (136-145) mmol/L Potassium (3.5-5.1) mmol/L Chloride (98-107) mmol/L Carbon Dioxide (21.0-32.0) mmol/L Anion Gap (5-15) mmol/L BUN (7-18) mg/dL Creatinine (0.51-1.17) mg/dL Est Cr Clr Drug Dosing mL/min Estimated GFR (MDRD) mL/min Glucose (70-140) mg/dL POC Glucose 256 H (70-140) mg/dL Lactic Acid (0.4-2.0) mmol/L Calcium (8.7-10.3) mg/dL Total Bilirubin (0.2-1.0) mg/dL AST (15-37) U/L ALT (14-63) U/L Alkaline Phosphatase (46-116) U/L Troponin I High Sens (0-51.000) pg/mL C-Reactive Protein (0.0-0.9) mg/dL B-Natriuretic Peptide (0-100) pg/mL Total Protein (6.4-8.2) g/dL Albumin (3.40-5.00) g/dL TSH, Ultra Sensitive (0.340-4.820) uIU/mL Specimen Type Urine Color (YELLOW) Urine Appearance (CLEAR) Urine pH (5.0-9.0) Ur Specific [place] (1.005-1.030) Urine Protein (NEGATIVE) mg/dL Urine Glucose (UA) (NEGATIVE) mg/dL Urine Ketones (NEGATIVE) mg/dL Urine Occult Blood (NEGATIVE) Urine Nitrite (NEGATIVE) Urine Bilirubin (NEGATIVE) Urine Urobilinogen (0.2-1.0) E.U./dL Ur Leukocyte Esterase (NEGATIVE) U Hyaline Cast (Auto) Urine RBC (0-5) /HPF Urine WBC (0-5) /HPF Ur Epithelial Cells /LPF Amorphous Sediment (0/HPF) /HPF Urine Bacteria (NONE TO FEW) /HPF Urine Mucus (NEGATIVE) /LPF Urine Opiates Screen (NEGATIVE) Ur Oxycodone Screen (NEGATIVE) Urine Methadone Screen (NEGATIVE) Ur Propoxyphene Screen (NEGATIVE) Ur Barbiturates Screen (NEGATIVE) Ur Tricyclics Screen (NEGATIVE) Ur Phencyclidine Scrn (NEGATIVE) Ur Amphetamine Screen (NEGATIVE) U Methamphetamines Scrn (NEGATIVE) U Benzodiazepines Scrn (NEGATIVE) U Cocaine Metab Screen (NEGATIVE) U Marijuana (THC) Screen (NEGATIVE) SARS CoV-2 RNA Rapid KATH (NEGATIVE) Med Orders - Current: Current Medications Acetaminophen (Acetaminophen 650 Mg Tab.Er) 1,300 mg PO Q8H PRN PRN Reason: Pain Last Admin: 04/18/21 21:59 Dose: 1,300 mg Documented by: Al Hydroxide/Mg Hydroxide (Aluminum Hydroxide/Magnesium Hydroxide/Simethicone Susp 30 Ml Cup) 15 - 30 ml PO BEDTIME PRN PRN Reason: Heartburn Atorvastatin Calcium (Atorvastatin 40 Mg Tab) 40 mg PO BEDTIME [facility] Last Admin: 04/18/21 20:02 Dose: 40 mg Documented by: Baclofen (Baclofen 10 Mg Tab) 10 mg PO TID PRN PRN Reason: neck pain Bupropion HCl (Bupropion 150 Mg Tab.Er) 450 mg PO DAILY [facility] Last Admin: 04/19/21 08:16 Dose: 450 mg Documented by: Buspirone HCl (Buspirone 10 Mg Tab) 10 mg PO TID [facility] Last Admin: 04/19/21 08:17 Dose: 10 mg Documented by: Capsaicin (Capsaicin 0.025% Crm 60 Gm Tube) 0 gm TOP QID PRN PRN Reason: Pain (moderate 4-6) Cetirizine HCl (Cetirizine 10 Mg Tab) 10 mg PO DAILY [facility] Last Admin: 04/19/21 08:16 Dose: 10 mg Documented by: Dextrose/Water (50% Dextrose In Water 50 Ml Syringe) 50 ml IVPUSH ASDIRECTED PRN PRN Reason: Hypoglycemia Diclofenac Sodium (Diclofenac Sodium 1% Gel 100 Gm Tube) 0 gm TOP BID PRN PRN Reason: Pain Famotidine (Famotidine 20 Mg Tab) 40 mg PO DAILY PRN PRN Reason: ACID Glucagon (Glucagon,Human Recombinant 1 Mg Vial) 1 mg IM ASDIRECTED PRN PRN Reason: Hypoglycemia Hydroxyzine HCl (Hydroxyzine Hcl 25 Mg Tab) 25 mg PO Q6H PRN PRN Reason: Anxiety Insulin Aspart (Insulin Aspart 100 Units/Ml 3 Ml Pen) 0 unit SUBCUT TIDMEALS [facility]; Protocol Last Admin: 04/19/21 08:17 Dose: 6 unit Documented by: Lactulose (Lactulose Soln 10 Gm/15 Ml 30 Ml Ud Cup) 80 gm PO BEDTIME [facility] Last Admin: 04/18/21 21:59 Dose: 80 gm Documented by: Meclizine HCl (Meclizine 25 Mg Tab) 50 mg PO Q4H PRN PRN Reason: Dizziness Non-Formulary Medication (Lidocaine 4% [Lmx 4]) 1 applic TOP BID PRN PRN Reason: Itching Non-Formulary Medication (Mirabegron [Myrbetriq]) 50 mg PO DAILY KIMMIE Non-Formulary Medication (Raloxifene) 60 mg PO DAILY [facility] Non-Formulary Medication (Vilazodone [Viibryd]) 40 mg PO DAILY@1200 KIMMIE Oxycodone HCl (Oxycodone 5 Mg Tab) 5 mg PO Q6H PRN PRN Reason: Pain (severe 7-10) Last Admin: 04/18/21 20:00 Dose: 5 mg Documented by: Pantoprazole Sodium (Pantoprazole 40 Mg Tab.Cr) 40 mg PO ACBREAKFAST [facility] Last Admin: 04/19/21 06:39 Dose: 40 mg Documented by: Pregabalin (Pregabalin 100 Mg Cap) 400 mg PO BEDTIME [facility] Last Admin: 04/18/21 20:02 Dose: 400 mg Documented by: Pregabalin (Pregabalin 100 Mg Cap) 200 mg PO QAM [facility] Last Admin: 04/19/21 08:16 Dose: 200 mg Documented by: Ropinirole HCl (Ropinirole 1 Mg Tab) 1 mg PO BEDTIME [facility] Last Admin: 04/18/21 20:03 Dose: 1 mg Documented by: Sodium Chloride (Sodium Chloride 0.9% 10 Ml Syringe) 10 ml FLUSH Q8HR PRN PRN Reason: keep vein open Last Admin: 04/18/21 20:04 Dose: 10 ml Documented by: Discontinued Medications Lorazepam (Lorazepam 0.5 Mg Tab) 1 mg PO ONETIME ONE Stop: 04/18/21 19:48 Last Admin: 04/18/21 20:00 Dose: 1 mg Documented by: Methylprednisolone Sodium Succinate (Methylprednisolone Sodium Succinate 125 Mg/2 Ml Sdv) 125 mg IVPUSH ONETIME ONE Stop: 04/18/21 14:09 Last Admin: 04/18/21 14:13 Dose: 125 mg Documented by: - Exam Quality Assessment: Denies: Supplemental Oxygen, DVT Prophylaxis General: Reports: Alert, Oriented, Cooperative, No Acute Distress HEENT: Reports: Pupils Equal, Pupils Reactive, EOMI, Mucous Membr. Moist/[place] Neck: Reports: Supple, Trachea Midline Lungs: Reports: Decreased Breath Sounds. 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 Denies: Normal Gait (unsteady, at baseline) Psy/Mental Status: Reports: Alert, Normal Affect, Normal Mood
[2021-04-19 11:37] VITALS: BP 101/59; PULSE 99
[2021-04-19] MEDS ORDERED: Non-Formulary Medication 1 Each (Vilazodone [Viibryd] 40 MG Tablet) PO SCH (12:00)
== END 2021-04-19 12:45 | disposition home or self-care (01) ==
LOC: KA.ED 13:44 → KA.MS 16:37
PROVIDERS: ADMIT Student in an Organized Health Care Education/Training Program; ATTEND Student in an Organized Health Care Education/Training Program
DX: R41.0 Disorientation, unspecified (principal); G89.29 Other chronic pain; M54.50 Low back pain, unspecified; E78.00 Pure hypercholesterolemia, unspecified; I10 Essential (primary) hypertension; K21.9 Gastro-esophageal reflux disease without esophagitis; E11.42 Type 2 diabetes mellitus with diabetic polyneuropathy; E66.9 Obesity, unspecified; E53.8 Deficiency of other specified B group vitamins; Z86.73 Personal history of transient ischemic attack (TIA), and cerebral infarction without residual deficits; Z88.8 Allergy status to other drugs, medicaments and biological substances; Z79.899 Other long term (current) drug therapy; Z79.82 Long term (current) use of aspirin; Z90.49 Acquired absence of other specified parts of digestive tract; Z98.890 Other specified postprocedural states; Z20.822 Contact with and (suspected) exposure to COVID-19
CPT/HCPCS: 36415; 70450; 71045; 80053; 80305-QW; 81001; 82947; 83605; 83880; 84443; 84484; 85025; 85379; 86140; 87040; 87086; 93010; 96374; 99284; 99285-25; A9270-GY; G0378; J1815-GY; J2930; U0002